=== PATIENT | male | born 1965 | race Caucasian/White ===

== ENCOUNTER 2019-07-01 11:26 | Emergency (ER) | payer BC, SELFPAY ==
[2019-07-01] VITALS (9 sets, daily range): BP systolic 135–168; BP diastolic 76–82; PULSE 75–112; RESP 16–22; TEMP 36.7; O2SAT 95–99
--- NOTE | 2019-07-01 11:42 | ED.ALLEREA ---
HPI - Allergic Reaction General Chief complaint: Allergic Reaction Stated complaint: Hives Time Seen by Provider: 07/01/19 11:49 Source: patient and family Mode of arrival: ambulatory Limitations: no limitations History of Present Illness HPI narrative: 54-year-old man comes from his PCP clinic today complaining of 3 days of itching, rash, shortness of breath, intermittent lightheadedness, and starting today, nausea and vomiting. He has been taking 40 mg of prednisone a day for the last few days in using his inhalers which, he states, is helping his shortness of breath. MD complaint: allergic reaction and hives Onset (ago): day(s) (3) Exposure: medication Symptoms: rash, itching, difficulty breathing, dizziness, nausea and vomiting Severity: moderate Treatment prior to arrival: benadryl and steroids Previous Allergic Reaction History: none Related Data Home Medications Medication Instructions Recorded Confirmed albuterol sulfate 2.5 mg INHALATION Q4-5H 07/01/19 07/01/19 mometasone-formoterol [Dulera] 1 puff INHALATION BID 07/01/19 07/01/19 Allergies Allergy/AdvReac Type Severity Reaction Status Date / Time fish oil Allergy Anaphylaxis Verified 07/01/19 12:21 Review of Systems Constitutional: Constitutional: Denies chills, Denies fever(s) and Denies weakness Eyes: Eyes: Denies change in vision and Denies photophobia ENT: Denies dysphagia, Denies nasal congestion and Denies sore throat Cardiovascular: Cardiovascular: Denies chest pain and Denies radiating jaw, neck or arm pain Respiratory: Respiratory: Denies chest congestion, Denies cough, Denies dyspnea and Reports wheezing Gastrointestinal: Gastrointestinal: Denies abdominal pain, Denies diarrhea, Denies nausea and Denies vomiting Genitourinary: Genitourinary: Denies dysuria and Denies urinary frequency Musculoskeletal: Musculoskeletal: Denies arthralgias and Denies joint swelling Integumentary/Breasts: Skin/Breast: Reports pruritus, Reports erythema and Reports rash Neurologic: Denies vertigo, Reports dizziness and Denies syncope Psychiatric: Psychiatric: Denies anxiety and Denies depression Endocrine: Endocrine: Denies polydipsia and Denies polyuria Hematologic/Lymphatic: Hematologic/Lymphatic: Denies easy bleeding and Denies easy bruising Allergic/Immunologic: Allergic/Immunologic: Denies lip swelling and Denies wheezing PMFSH Past Medical History Medical History Asthma Surgical History Surgical History H/O knee surgery bilateral History of surgery on arm Social History Social History Smoking status: Never smoker Alcohol intake: never Substance use: never Living arrangements: with family Exam Const: General: alert Nutritional Appearance: obese Orientation/consciousness: patient oriented x3 Other: mild acute distress HENMT: Head: normal to inspection Ears: external ears normal and TM's normal bilaterally Mouth: Yes Normal oral and palatal mucosa present and Yes moist mucous membranes Throat: posterior oropharynx normal and uvula midline Eyes: Conjunctivae: conjunctivae normal Pupils: Equal, round and reactive pupils present EOM: EOMs intact bilaterally Resp: Effort & Inspection: normal respiratory effort Auscultation: wheezes expiratory wheezes, scattered wheezes and throughout Cardio: Rate: tachycardic Rhythm: regular rhythm Heart sounds: no murmurs Skin: General skin exam: no jaundice and no pallor Other: diffuse erythema and urticaria Extrem: General: normal to inspection and no clubbing, cyanosis or edema Psych: Appearance: grossly normal and well kempt Affect: Anxious affect present Attitude: cooperative Thought content: Yes Normal thought content present Course Course Emergency Course: 1345 Patient states his shortness of breath an
[2019-07-01] MEDS: EPINEPHrine HCL INJ 1 MG/ML AMPUL 0.3 MG IM (12:14)
[2019-07-01] MEDS: methylPREDNISolone SOD SUCC 125 MG VIAL IV PUSH (12:15)
[2019-07-01] MEDS: ONDANSETRON HCL ODT 4 MG TABLET (12:16)
--- NOTE | 2019-07-01 12:17 | PC.NURSE ---
IV ACCESS ATTEMPTED MULTIPLE TIMES - PER ERP, OK TO GIVE MEDICATIONS IM. PT CONDITION REMAINS STABLE.
[2019-07-01] MEDS: IPRATROPIUM 0.5 MG/ALBUTEROL SULFATE 2.5 MG AMPUL.NEB 3 ML INHALATION (13:17)
[2019-07-01] MEDS: ALBUTEROL SULFATE NEB 2.5 MG/3 ML INH INHALATION (13:17)
--- NOTE | 2019-07-01 13:23 | PC.NURSE ---
MULTIPLE IV ATTEMPTS UNSUCESSFUL - PATIENT REPORTS FEELING BETTER AND WISHES TO GO HOME, AIRWAY REMAINS PATENT VSS
--- NOTE | 2019-07-01 13:42 | ECG_ITS ---
Measurements Intervals [place] Rate: 84 P: 30 UT: 154 QRS: -44 QRSD: 104 T: 46 QT: 366 QTc: 434 Interpretive Statements SINUS RHYTHM LEFT AXIS DEVIATION BORDERLINE R WAVE PROGRESSION, ANTERIOR LEADS BORDERLINE ECG Electronically Signed On 07-01-2019 14:51:51 CDT by William Henderson D.O.
[2019-07-01 14:21] LABS: Hematocrit 55.5 % (40.0-54.0); Hemoglobin 17.7 g/dL (14.0-18.0); Mean Corpuscular HGB Conc 31.9 g/dL (32.0-36.0); Mean Corpuscular Hemoglobin 30.3 pg (27.0-31.0); Mean Platelet Volume 11.2 fl (8.7-11.0); Platelet Count Result 233 K/mm3 (150-420); Red Blood Count 5.84 M/mm3 (4.70-6.10); Red Cell Distribution Width 14.4 % (11.6-14.4); White Blood Count 5.4 K/mm3 (4.8-10.8)
[2019-07-01 14:52] LABS: Alanine Aminotransferase 28 U/L (16-63); Albumin Level 3.8 g/dL (3.4-5.0); Alkaline Phosphatase 64 U/L (46-116); Anion Gap 15.8 mmol/L (7-16); Aspartate Amino Transferase 39 U/L (15-37); Bilirubin,Total 0.8 mg/dL (0.00-1.00); Blood Urea Nitrogen 31 mg/dL (7-18); Calcium 8.9 mg/dL (8.5-10.1); Carbon Dioxide 23 mmol/L (21-32); Chloride 104 mmol/L (98-108); Estimated Glomerular Filt Rate 26; Glucose 112 mg/dL (70-99); Osmolality Calculated 293 mOsm/kg (285-295); Potassium 4.8 mmol/L (3.5-5.1); Sodium 138 mmol/L (136-145); Total Protein 6.9 g/dL (6.4-8.2); Troponin I 0.02 ng/mL (0.00-0.056)
== END 2019-07-01 15:13 | disposition home or self-care (01) ==
PROVIDERS: Emergency Provider Emergency Medicine; PCP Physician Assistant
DX: T78.2XXA Anaphylactic shock, unspecified, initial encounter (principal)
CPT/HCPCS: 36415; 80053; 84484; 85027; 93005; 94640; 96372; 96374; 96375; 99284; A9270; J0171; J1200; J2930

== ENCOUNTER 2020-11-13 13:50 | Emergency (ER) | payer BC, SELFPAY ==
[2020-11-13] VITALS (11 sets, daily range): BP systolic 142–163; BP diastolic 73–81; PULSE 16–84; RESP 16–24; TEMP 37.2–37.7; O2SAT 87–97
--- NOTE | ~2020-11-13 | CT_ITS ---
EXAMINATION: CT diagnostic chest wo con DATE: 11/13/2020 16:30 INDICATION: Shortness of breath and wheezing, COVID positive TECHNIQUE: Computed tomography (CT) of the chest was performed without intravenous contrast. The dose -length product (DLP) was 994.66 mGy-cm. Automated exposure control and iterative reconstruction tech [employer] were employed. COMPARISON: None FINDINGS: There are widespread groundglass opacities involving all lung zones. There is no pleural ef fusion or pneumothorax. The heart size is normal. There is enlargement of the main and central pulmon elsie arteries, consistent with pulmonary hypertension. No pathologically enlarged thoracic lymph nodes are identified there is a trace pericardial effusion. IMPRESSION: 1. Diffuse lung disease, consistent with pneumonia and/or pulmonary edema and/or acute respiratory di stress syndrome (ARDS) due to COVID 19. 2. Findings consistent with pulmonary hypertension Reviewed, dictated and finalized at location B. IMPRESSION: 1. Diffuse lung disease, consistent with pneumonia and/or pulmonary edema and/o r acute respiratory distress syndrome (ARDS) due to COVID 19. 2. Findings consistent with pulmonary hypertension
--- NOTE | 2020-11-13 14:04 | ECG_ITS ---
Measurements Intervals [place] Rate: 85 P: 47 VA: 157 QRS: -51 QRSD: 110 T: 16 QT: 393 QTc: 468 Interpretive Statements SINUS RHYTHM LEFT ANTERIOR FASCICULAR BLOCK BASELINE ARTIFACT- II, III, AVF ABNORMAL ECG Electronically Signed On 11-13-2020 14:52:46 CDT by William Henderson D.O.
[2020-11-13 14:39] LABS: Base Excess ABG -2.3 mmol/L (0-2); Device NON-REBREATHER MASK; HCO3 ABG 20.6 mmol/L (23-29); Modified Allen's Test Pass; Oxygen Content ABG 21.4 %vol (16.0-22.0); Oxygen Saturation ABG 93.1 % (95-97); Oxyhemoglobin 92.6 % (94-100); PCO2 ABG 31.1 mmHg (35-45); PO2 ABG 64.7 mmHg (80-90); Site Drawn RIGHT RADIAL; Total Hemoglobin 16.5 g/dL (12.0-18.0); pH ABG 7.44 (7.35-7.45)
[2020-11-13 14:41] LABS: Basophils Absolute Auto 0.01 K/mm3 (0.00-0.10); Basophils Percent Auto 0.2 % (0.0-1.0); Hematocrit 46.7 % (40.0-54.0); Hemoglobin 15.9 g/dL (14.0-18.0); Immature Granulocyte Absolute 0.03 K/mm3 (0.00-0.00); Immature Granulocyte Percent A 0.7 % (0.0-0.0); Lymphocytes Absolute Auto 0.55 K/mm3 (1.10-4.50); Lymphocytes Percent Auto 13.1 % (18.0-42.0); Mean Corpuscular Hemoglobin 29.7 pg (27.0-31.0); Mean Corpuscular Volume 87.3 fL (78.0-102.0); Mean Platelet Volume 10.4 fl (8.7-11.0); Monocytes Absolute Auto 0.38 K/mm3 (0.10-0.90); Neutrophils Absolute Auto 3.2 K/mm3 (1.7-7.2); Platelet Count Result 163 K/mm3 (150-420); Red Blood Count 5.35 M/mm3 (4.70-6.10); Red Cell Distribution Width 13.5 % (11.6-14.4); White Blood Count 4.2 K/mm3 (4.8-10.8)
[2020-11-13] MEDS: methylPREDNISolone SOD SUCC 125 MG VIAL IV PUSH (14:50)
[2020-11-13] MEDS: ALBUTEROL SULFATE (*SP) INHALER 2 PUFF INHALATION ×3 (14:52→20:58)
[2020-11-13 15:00] LABS: Alanine Aminotransferase 95 U/L (16-63); Albumin Level 3.2 g/dL (3.4-5.0); Alkaline Phosphatase 91 U/L (46-116); Anion Gap 14 mmol/L (8-16); Aspartate Amino Transferase 139 U/L (15-37); Bilirubin,Total 0.7 mg/dL (0.00-1.00); Blood Urea Nitrogen 12 mg/dL (7-18); Calcium 8.2 mg/dL (8.5-10.1); Carbon Dioxide 22 mmol/L (21-32); Chloride 102 mmol/L (98-108); Estimated Glomerular Filt Rate 59; Glucose 117 mg/dL (70-99); Osmolality Calculated 286 mOsm/kg (285-295); Potassium 3.7 mmol/L (3.5-5.1); Sodium 138 mmol/L (136-145); Total Protein 7.1 g/dL (6.4-8.2); Troponin I 37.3 ng/L (0.00-60.4)
[2020-11-13 15:06] LABS: Lactic Acid Reflex 1.9 mmol/L (0.4-2.0)
[2020-11-13 15:24] LABS: SARS-CoV-2 Ag Positive (Negative)
[2020-11-13 19:19] LABS: NT Pro B Type Natriuretic Pept 245 pg/mL (0-125)
--- NOTE | 2020-11-13 20:32 | PC.NURSE ---
report to AMANDA Pugh patient to be ER hold
[2020-11-13] MEDS: ACETAMINOPHEN 500 MG TABLET PO (20:56)
[2020-11-13] MEDS: DEXAMETHASONE SOD PHOS INJ 4 MG/ML VIAL 6 MG IV PUSH (21:10)
[2020-11-13] MEDS: AZITHROMYCIN 250 MG TABLET 500 MG PO (21:16)
--- NOTE | 2020-11-13 21:45 | PC.NURSE ---
Pt taken to Rm 210 as ERHold until bed available at [facility].
--- NOTE | 2020-11-13 23:33 | PC.NURSE ---
2300-- Patient delivered to floor by ER staff. Patient in room 210. Vital signs 98.2- 20 -66 -146/76 (left arm, lying)- 87% on 15L rebreather mask. Patient complains of dry hacky cough and SOB. States he becomes nausous with movement. Denies any pain. Nail bed pink, Less than 2 second capillary refill noted. Patient is an ER hold. Awaiting to be tranferred to [facility]. --Rick Barnes RN
--- NOTE | 2020-11-13 23:45 | PC.NURSE ---
1100 Crackles bilateral lower lobes.
[2020-11-14] MEDS: REMDESIVIR 200 MG/NS 250 ML 200 MG/250 ML BAG 250 MG IVPB (01:11)
--- NOTE | 2020-11-14 02:26 | PC.NURSE ---
Dr. Childress notified of pt's c/o headache pain; New orders received and noted.
--- NOTE | 2020-11-14 02:51 | PC.NURSE ---
0111-- Remdesivir IV administered. Patient tolerated well. Patient also started on telemetry. Patient currently in sinus bradycardia. Denies any chest pain. SOB with movement. Complained of headache. ER physician called. Received order for Tylenol to be given. --Rick Barnes RN
[2020-11-14] MEDS: ACETAMINOPHEN 325 MG TABLET 650 MG PO (03:18)
--- NOTE | 2020-11-14 03:28 | PC.NURSE ---
Patient continues to complain of headache, dull achey. Rated pain 5 out of 10. Tylenol 650mg given at 0320. Repeated vital signs 98.0 - 58 - 20 - 144/97 Left arm, suspine, 90%. --Rick Barnes RN
--- NOTE | 2020-11-14 04:46 | PC.NURSE ---
0430 --Patient is sleeping with rebreather mask and nasal canal on. Patient is not in any distress at this time. --Rick Barnes RN
--- NOTE | 2020-11-14 04:46 | ED.SOB ---
HPI - SOB/Dyspnea General Chief Complaint: Shortness of Breath/Dyspnea Stated Complaint: respitory distress Time Seen by Provider: 11/13/20 13:51 Source: patient and RN notes reviewed Mode of arrival: ambulatory Limitations: no limitations History of Present Illness MD elicited complaint: shortness of breath Pertinent past history: asthma Onset (ago): day(s) (1) Context: recent illness Timing: progressively worsening Severity: moderate Exacerbating factors: nothing Relieving factors: nothing Known history of: asthma Associated symptoms: wheezing and sense of impending doom Treatment prior to arrival: none Related Data Home Medications Medication Instructions Recorded Confirmed albuterol sulfate 2.5 mg INHALATION Q4-5H 07/01/19 11/13/20 mometasone-formoterol [Dulera] 1 puff INHALATION BID 07/01/19 11/13/20 Allergies Allergy/AdvReac Type Severity Reaction Status Date / Time fish oil Allergy Severe Anaphylaxis Verified 11/13/20 20:42 Review of Systems Review of Systems: All systems reviewed & are unremarkable except as noted in HPI and below Constitutional: Constitutional: Reports as per HPI and Reports no additional constitutional complaints Eyes: Eyes: Reports as per HPI and Reports no additional eye complaints ENT: Reports system reviewed and no additional complaints, except as documented and Reports as per HPI Cardiovascular: Cardiovascular: Reports as per HPI and Reports no additional cardiovascular complaints Respiratory: Respiratory: Reports as per HPI, Reports no additional respiratory complaints, Reports dyspnea and Reports wheezing Gastrointestinal: Gastrointestinal: Reports as per HPI and Reports no additional gastrointestinal complaints Genitourinary: Genitourinary: Reports no additional male genitourinary complaints and Reports as per HPI Musculoskeletal: Musculoskeletal: Reports no additional musculoskeletal complaints and Reports as per HPI Integumentary/Breasts: Skin/Breast: Reports system reviewed and no additional complaints, except as docu and Reports as per HPI Neurologic: Reports system reviewed and no additional complaints, except as documented and Reports as per HPI Psychiatric: Psychiatric: Reports no additional psychiatric complaints and Reports as per HPI Endocrine: Endocrine: Reports no additional endocrine complaints and Reports as per HPI Hematologic/Lymphatic: Hematologic/Lymphatic: Reports no additional hematologic/lymphatic complaints and Reports as per HPI Allergic/Immunologic: Allergic/Immunologic: Reports no additional allergic/immunologic complaints and Reports as per HPI PMFSH Past Medical History Medical History Asthma Surgical History Surgical History H/O knee surgery bilateral History of surgery on arm Social History Social History Smoking status: Never smoker Alcohol intake: never Substance use: never Gender identity (if verbalized by the patient): Male Exam Const: General: alert and ill appearing Orientation/consciousness: patient oriented x3 HENMT: Head: normal to inspection Ears: external ears normal and TM's normal bilaterally General nose exam: Normal external nose present and Normal nares present Mouth: Yes lip normal and Yes moist mucous membranes Teeth and gingiva: dentition normal Eyes: Conjunctivae: conjunctivae normal Pupils: Equal, round and reactive pupils present EOM: EOMs intact bilaterally Neck: Neck: normal visual inspection and no lymphadenopathy Chest: Chest palpation & inspection: normal inspection of the chest Resp: Effort & Inspection: labored, retractions, tachypneic and uses accessory muscles Auscultation: crackles, rhonchi and wheezes Cardio: Rate: regular rate Rhythm: regular rhythm GI: GI Palp: Yes Soft to palpation Percussion: Yes alin
--- NOTE | 2020-11-14 05:22 | PC.NURSE ---
0525--Patient awake. Reports headache to be better, 1-2. Patient continues to wear rebreather mask at 15L and NC at 6L. Denies any SOB. Dry, hacky cough noted. --Rick Barnes RN
[2020-11-14 05:30] LABS: Basophils Absolute Auto 0.01 K/mm3 (0.00-0.10); Basophils Percent Auto 0.2 % (0.0-1.0); Hematocrit 47.6 % (40.0-54.0); Hemoglobin 15.8 g/dL (14.0-18.0); Immature Granulocyte Absolute 0.04 K/mm3 (0.00-0.00); Immature Granulocyte Percent A 0.8 % (0.0-0.0); Lymphocytes Absolute Auto 0.51 K/mm3 (1.10-4.50); Lymphocytes Percent Auto 10.8 % (18.0-42.0); Mean Corpuscular HGB Conc 33.2 g/dL (32.0-36.0); Mean Corpuscular Volume 87.3 fL (78.0-102.0); Mean Platelet Volume 9.8 fl (8.7-11.0); Monocytes Absolute Auto 0.34 K/mm3 (0.10-0.90); Monocytes Percent Auto 7.2 % (2.0-11.0); Neutrophils Absolute Auto 3.8 K/mm3 (1.7-7.2); Platelet Count Result 181 K/mm3 (150-420); Red Blood Count 5.45 M/mm3 (4.70-6.10); Red Cell Distribution Width 13.4 % (11.6-14.4); White Blood Count 4.7 K/mm3 (4.8-10.8)
[2020-11-14 05:51] LABS: Alanine Aminotransferase 95 U/L (16-63); Alkaline Phosphatase 101 U/L (46-116); Anion Gap 13 mmol/L (8-16); Aspartate Amino Transferase 139 U/L (15-37); Bilirubin,Total 0.8 mg/dL (0.00-1.00); Blood Urea Nitrogen 15 mg/dL (7-18); Calcium 8.7 mg/dL (8.5-10.1); Carbon Dioxide 23 mmol/L (21-32); Chloride 104 mmol/L (98-108); Estimated CRCL calculation 108 ml/min; Estimated Glomerular Filt Rate > 60; Glucose 140 mg/dL (70-99); Osmolality Calculated 292 mOsm/kg (285-295); Potassium 4.6 mmol/L (3.5-5.1); Sodium 140 mmol/L (136-145); Total Protein 7.2 g/dL (6.4-8.2)
[2020-11-14 05:53] LABS: INR 0.9; Prothrombin Time 9.9 Seconds (9.50-12.10)
--- NOTE | 2020-11-14 07:15 | PC.NURSE ---
Report obtained from night nurse. Patient is on ER hold, awaiting a bed at [facility]. Patient is covid positive, on 6Lnasal canula and 15L non-rebreather, and still barely satting 90 . Patient is on telemetry, and is running bradycardia. Patient has a dry, hacking cough with crackles in the bilateral lower lobes. He is not eating very much at this time.
--- NOTE | 2020-11-14 08:20 | PC.NURSE ---
Bed from [facility] recieved
[2020-11-14] MEDS: ONDANSETRON INJ 4 MG/2 ML VIAL IV PUSH (08:32)
[2020-11-14 08:45] VITALS: BP 164/87; PULSE 62; RESP 25; TEMP 36.6; O2SAT 88
--- NOTE | 2020-11-14 08:45 | PC.NURSE ---
Patient was asking for medication for nausea. Gave him zofran, and took his vitals. Patient's heart rate was 62 and his blood pressure was 164/87. Patient's O2 sats were 88%. Reported information to Dr. Choi, respiratory was called in and upped his nonrebreather to 25L. Patient's O2 sats went up to 92%. Patient has a bed at [facility]. Attempted to call report, nurse was unavailable and would call back.
[2020-11-14 09:13] LABS: Base Excess ABG -1.6 mmol/L (0-2); HCO3 ABG 21.1 mmol/L (23-29); Oxygen Content ABG 21.4 %vol (16.0-22.0); Oxygen Saturation ABG 91.6 % (95-97); Oxyhemoglobin 91.2 % (94-100); PCO2 ABG 30.7 mmHg (35-45); PO2 ABG 59.8 mmHg (80-90); Total Hemoglobin 16.7 g/dL (12.0-18.0); pH ABG 7.45 (7.35-7.45)
[2020-11-14 09:14] LABS: Modified Allen's Test Pass; Site Drawn RIGHT RADIAL
[2020-11-14 09:15] LABS: Device NON-REBREATHER MASK
[2020-11-14 11:14] VITALS: BP 164/87; PULSE 62; RESP 25; TEMP 36.6; O2SAT 88
--- NOTE | 2020-11-14 11:19 | PC.NURSE ---
Patient transferred via [facility] to [facility] IMU. Patient alert and oriented. Continues on isolation for Covid. On 15 liters of O2 with nonrebreather. No resp distress or pain observed.
== END 2020-11-14 11:00 | disposition short-term general hospital (02) ==
LOC: CHSED 13:54 → CHS2ND 20:08
PROVIDERS: Emergency Medicine; Emergency Provider Emergency Medicine; PCP Family Medicine
DX: U07.1 COVID-19 (principal); J12.82 Pneumonia due to coronavirus disease 2019; J45.51 Severe persistent asthma with (acute) exacerbation; J18.9 Pneumonia, unspecified organism
CPT/HCPCS: 36415; 36600; 71250; 80053; 82565; 82805; 83605; 83880; 84484; 85025; 85610; 87040; 87426; 93005; 94640; A9270; C9803; J0696; J1100; J2405; J2930

== ENCOUNTER 2020-11-14 11:30 | Inpatient (IN) | payer BC, SELFPAY ==
[2020-11-14] VITALS (19 sets, daily range): BP systolic 161–183; BP diastolic 85–102; PULSE 56–70; RESP 25–89; TEMP 36.4–38.4; O2SAT 84–98; BMI 50.8
--- NOTE | ~2020-11-14 | XR_ITS ---
XR chest 1V portable 11/21/2020 06:37 Indication: Respiratory failure Procedure: AP portable chest Comparison: Comparison to multiple prior studies sequentially, with oldest reviewed study dated 11/18. Findings: Endotracheal tube tip 6.1 cm above the shelli. NG tube in the stomach. PICC line tip in the SVC. No pneumothorax. Unchanged diffuse bilateral airspace disease with more focal consolidation in the lower lung zones. Impression: 1: Stable diffuse bilateral infiltrates which may represent edema or pneumonia. Reviewed, dictated and finalized at location A. Impression: 1: Stable diffuse bilateral infiltrates which may represent edema or pneumonia.
--- NOTE | ~2020-11-14 | XR_ITS ---
XR abdomen NG/feed tube insert DATE: 11/15/2020 02:16 INDICATION: Nasogastric tube placement TECHNIQUE: Portable AP view on 11/15/2020 at 0203 hours COMPARISON: None FINDINGS: NG tube is noted in the gastric fundus. Nonspecific bowel gas pattern. IMPRESSION: NG tube in gastric fundus. Reviewed, dictated and finalized at Location A. Reviewed, dictated and finalized at location A. IMPRESSION: NG tube in gastric fundus.
--- NOTE | ~2020-11-14 | XR_ITS ---
EXAMINATION: XR chest 1V portable DATE: 11/22/2020 09:23 INDICATION: Respiratory failure TECHNIQUE: frontal view of the chest was obtained. COMPARISON: Chest radiograph dated 11/21/2020 FINDINGS: Endotracheal tube tip 6.5 cm above the shelli. Nasogastric tube extends below the left hemidiaphragm with distal tip collimated off the study. Decreased lung volumes with increased indistinct interstitial pattern and airspace opacities in the r ight mid to lower and left lower lung zones. No pneumothorax or definitive pleural effusion. Cardiac silhouette is largely obscured. IMPRESSION: 1. No significant change in small lung volumes with interstitial and airspace opacities in the right mid to lower and left lower lung zones which could represent pneumonia, pulmonary edema, atelectasis, ARDS or some combination thereof. 2. Endotracheal tube tip 6.5 cm above the shelli. Recommend advancement by 4 cm. Reviewed, dictated and finalized at location A. IMPRESSION: 1. No significant change in small lung volumes with interstitial and airspace o pacities in the right mid to lower and left lower lung zones which could repres ent pneumonia, pulmonary edema, atelectasis, ARDS or some combination thereof. 2. Endotracheal tube tip 6.5 cm above the shelli. Recommend advancement by 4 cm .
--- NOTE | ~2020-11-14 | XR_ITS ---
XR chest ET placement DATE: 11/15/2020 05:45 INDICATION: ET tube placement after self extubation TECHNIQUE: Portable AP chest on 11/15/2020 at 0520 hours COMPARISON: 11/15/2020 portable AP chest at 0334 hours FINDINGS: ET tube in satisfactory position approximately 5.2 cm above shelli. NG tube is visualized a t least into the distal esophagus, this more distal portion not well-demonstrated. Right upper extremity PIC catheter in superior vena cava. Patchy bilateral pulmonary infiltrates, right greater than left. No pleural effusion or pneumothorax is evident. IMPRESSION: ET tube in satisfactory position Persistent extensive patchy bilateral pulmonary infiltrates Reviewed, dictated and finalized at Location A. Reviewed, dictated and finalized at location A.
--- NOTE | ~2020-11-14 | XR_ITS ---
XR abdomen/kub 1V DATE: 11/15/2020 00:13 INDICATION: Nausea and vomiting TECHNIQUE: Portable supine AP view on 11/15/2020 at 0000 hours COMPARISON: None FINDINGS: The stomach and duodenum are distended with gas. There is limited small bowel gas. Gas is n oted within nondilated colon. No pneumatosis or obvious intraperitoneal free air is detected on this limited supine radiograph. IMPRESSION: Gaseous distention of the stomach and duodenum Reviewed, dictated and finalized at Location A. Reviewed, dictated and finalized at location A.
--- NOTE | ~2020-11-14 | XR_ITS ---
XR abdomen NG/feed tube insert DATE: 11/15/2020 03:46 INDICATION: Orogastric tube placement TECHNIQUE: Portable AP view on 11/15/2020 0337 hours COMPARISON: None FINDINGS: Orogastric tube is noted within the stomach, the distal tip not definitively localized due to motion. IMPRESSION: Orogastric tube in stomach, distal tip not localize due to motion Reviewed, dictated and finalized at Location A. Reviewed, dictated and finalized at location A.
--- NOTE | ~2020-11-14 | XR_ITS ---
XR chest 1V portable 11/19/2020 06:32 Indication: Acute respiratory distress Procedure: AP portable chest Comparison: Comparison to multiple prior studies sequentially, with oldest reviewed study dated 11/15. Findings: Cardiomegaly. Persistent diffuse bilateral airspace disease. Endotracheal tube tip 6.5 cm a mauricio the shelli. NG tube passes into the stomach. PICC line tip likely in the SVC, although not well visualized. Possible small left effusion. No pneumothorax. Impression: 1: Unchanged diffuse bilateral airspace disease which may represent pneumonia or edema. Reviewed, dictated and finalized at location A. Impression: 1: Unchanged diffuse bilateral airspace disease which may represent pneumonia o r edema.
--- NOTE | ~2020-11-14 | US_ITS ---
EXAMINATION: US renal BI DATE: 11/25/2020 17:12 INDICATION: Acute kidney injury. TECHNIQUE: Multiple ultrasound grayscale images of the kidneys were obtained. COMPARISON: Chest CT 11/13/2020 FINDINGS: The right kidney measures 16.0 x 5.3 x 5.8 cm. The left kidney measures 15.1 x 4.7 x 6.2 cm. The kidn eys demonstrate normal parenchymal echogenicity. There is no hydronephrosis. The bladder is decompres sed by a Olivares catheter. IMPRESSION: 1. Normal kidneys. No hydronephrosis. Reviewed, dictated and finalized at location A.
--- NOTE | ~2020-11-14 | XR_ITS ---
XR chest 1V portable 11/20/2020 06:10 Indication: Respiratory failure Procedure: AP portable chest Comparison: Comparison to multiple prior studies sequentially, with oldest reviewed study dated 11/17. Findings: Endotracheal tube tip 3.8 cm above the shelli. NG tube in the stomach. Stable diffuse bilat eral airspace disease, compatible with pneumonia versus edema. PICC line tip in the SVC. Distal aspec t of the NG tube not visualized. Impression: 1: Stable diffuse bilateral airspace disease which most likely represents pneumonia versus edema. Reviewed, dictated and finalized at location A. Impression: 1: Stable diffuse bilateral airspace disease which most likely represents pneum onia versus edema.
--- NOTE | ~2020-11-14 | XR_ITS ---
XR chest 1V portable DATE: 11/15/2020 02:16 INDICATION: Acute respiratory failure TECHNIQUE: Portable AP chest on 11/15/2020 at 0153 hours COMPARISON: 11/13/2020 CT chest FINDINGS: Extensive patchy bilateral pulmonary infiltrates are again noted, likely due to Covid pneum onia. Heart size appears within normal range. No pleural effusion or pneumothorax is evident. An NG tube is noted, likely passing into the stomach, but difficult to trace distally. IMPRESSION: Extensive patchy bilateral pulmonary infiltrates, likely due to Covid pneumonia Reviewed, dictated and finalized at location A. IMPRESSION: Extensive patchy bilateral pulmonary infiltrates, likely due to Cov id pneumonia
--- NOTE | ~2020-11-14 | XR_ITS ---
EXAMINATION: XR chest port-a-cath/central EXAM DATE: 11/27/2020 08:33 INDICATION: Central line placement. COVID pneumonia. TECHNIQUE: Portable AP frontal chest x-ray was obtained. Comparison is made to prior examination from 11/27/2019. FINDINGS: There is a right-sided IJ double-lumen dialysis catheter. There is a right-sided PICC line heading in the correct direction, with tip poorly visualized. Endotracheal and nasogastric tubes in p osition. Cardiomegaly. Diffuse bilateral acute airspace disease unchanged in patient with known COVID pneumoni a. There are no pleural effusions. Cardiac silhouette is prominent but magnified on this AP techni que. There is no pneumothorax suspected. The bones and soft tissues are unremarkable. There is no significant interval change. IMPRESSION: 1. Tubes, lines in position. 2. Diffuse pneumonia/edema unchanged. 3. No pneumothorax. Reviewed, dictated and finalized at location A.
--- NOTE | ~2020-11-14 | XR_ITS ---
XR chest 1V portable DATE: 11/26/2020 20:46 INDICATION: Covid pneumonia. Oxygen desaturation. TECHNIQUE: Portable AP views on 11/26/2020 at 2034 hours COMPARISON: 11/26/2020 portable AP chest at 1359 hours FINDINGS: There is severe patchy consolidating bilateral pulmonary infiltrates throughout the lungs, with minimal sparing of the apical areas. There is increased severity of infiltrates compared to 11/26 at 1359 hours. ET tube in satisfactory position. Right upper extremity PIC catheter in superior vena cava. IMPRESSION: Bilateral severe patchy consolidating infiltrates, increased since earlier today Reviewed, dictated and finalized at location A. IMPRESSION: Bilateral severe patchy consolidating infiltrates, increased since earlier stas gutierrez
--- NOTE | ~2020-11-14 | XR_ITS ---
XR chest 1V portable DATE: 11/24/2020 09:19 INDICATION: Respiratory failure TECHNIQUE: Portable AP chest on 11/24/2020 at 0913 hours COMPARISON: 11/23/2020 portable AP chest at 0921 hours FINDINGS: ET tube 5.2 cm above shelli. NG tube in stomach. Right upper extremity PIC catheter tip overlies superior vena cava. There are diffuse bilateral pulmonary infiltrates, most prominent at the lower lung zones, relatively stable since 11/23/2020. IMPRESSION: Relatively stable persistent diffuse bilateral pulmonary infiltrates, particularly promin ent at the lower lung zones Reviewed, dictated and finalized at location A. IMPRESSION: Relatively stable persistent diffuse bilateral pulmonary infiltrate s, particularly prominent at the lower lung zones
--- NOTE | ~2020-11-14 | XR_ITS ---
XR chest 1V portable 11/23/2020 09:26 Indication: Respiratory failure Procedure: AP portable chest Comparison: Comparison to multiple prior studies sequentially, with oldest reviewed study dated 11/19. Findings: Endotracheal tube tip 7.1 cm above the shelli. NG tube in the stomach. Improving bibasilar airspace disease, compatible with pneumonia versus edema. No significant effusion or pneumothorax. PI CC line tip in the SVC. Impression: 1: Improving bibasilar airspace disease, compatible with pneumonia versus edema. Reviewed, dictated and finalized at location A. Impression: 1: Improving bibasilar airspace disease, compatible with pneumonia versus edema .
--- NOTE | ~2020-11-14 | XR_ITS ---
XR abdomen NG/feed tube insert DATE: 11/15/2020 05:45 INDICATION: Orogastric tube placement TECHNIQUE: Portable AP view on 11/15/2020 at 0522 hours COMPARISON: 11/15/2020 at 0 337 hours FINDINGS: Orogastric tube is situated in the upper body of the stomach. IMPRESSION: Orogastric tube in upper body of stomach Reviewed, dictated and finalized at Location A. Reviewed, dictated and finalized at location A.
--- NOTE | ~2020-11-14 | XR_ITS ---
EXAMINATION: XR chest 1V portable INDICATION: Acute respiratory failure TECHNIQUE: Portable AP chest at 0532 hours COMPARISON: 11/17/2020 FINDINGS: The endotracheal tube ends approximately 6.2 cm above the shelli. The nasogastric tube is f ollowed as far as the stomach. Its tip is beyond the inferior margin of the radiograph. A right upper extremity PICC ends with its tip at the superior cavoatrial junction. Diffuse airspace opacities per sist in all lung zones with slight improvement in the left lower lung zone. The cardiomediastinal kendell houette is stable. There is no pleural effusion or pneumothorax. IMPRESSION: 1. Diffuse lung disease with slight interval improvement in the left lower lung zone, consistent with pneumonia and/or pulmonary edema and/or acute respiratory distress syndrome (ARDS). Reviewed, dictated and finalized at location A. IMPRESSION: 1. Diffuse lung disease with slight interval improvement in the left lower lung zone, consistent with pneumonia and/or pulmonary edema and/or acute respirator y distress syndrome (ARDS).
--- NOTE | ~2020-11-14 | XR_ITS ---
EXAMINATION: XR chest ET placement DATE: 11/19/2020 14:14 INDICATION: Endotracheal tube advancement. COVID-19 pneumonia. TECHNIQUE: A single frontal view of the chest was obtained. COMPARISON: Chest single view at 5:47 AM, chest CT 11/13/2020 FINDINGS: The lung volumes are small. There are airspace opacities in all lung zones bilaterally with a mid and lower lung zone predominance. No pleural effusion or pneumothorax. The heart size is alin l. The endotracheal tube tip is 5.6 cm above the shelli. A right upper extremity peripherally inserte d central venous catheter (PICC) is seen with tip in the superior vena cava. The nasogastric tube tip is in the stomach. IMPRESSION: 1. Stable diffuse lung disease, consistent with COVID-19 pneumonia versus acute respiratory distress syndrome (ARDS). Reviewed, dictated and finalized at location B.
--- NOTE | ~2020-11-14 | XR_ITS ---
EXAMINATION: XR chest port-a-cath/central EXAM DATE: 11/26/2020 14:08 INDICATION: Dialysis line placement . COVID pneumonia. TECHNIQUE: Portable AP frontal chest x-ray was obtained. Comparison is made to prior examination from 11/27/2019. FINDINGS: There is a new right-sided IJ double-lumen dialysis catheter. There is a right-sided PICC l ine. Endotracheal and nasogastric tubes in position. Cardiomegaly. Diffuse bilateral acute airspace disease unchanged in patient with known COVID pneumoni a. There are no pleural effusions. Cardiac silhouette is prominent but magnified on this AP techni que. There is no pneumothorax suspected. The bones and soft tissues are unremarkable. IMPRESSION: 1. No evidence postprocedure pneumothorax. 2. Diffuse pneumonia/edema. Reviewed, dictated and finalized at location A.
--- NOTE | ~2020-11-14 | XR_ITS ---
XR chest 1V portable DATE: 11/16/2020 05:56 INDICATION: Acute respiratory failure. Covid pneumonia. TECHNIQUE: Portable AP chest on 11/16/2020 at 0511 hours COMPARISON: 11/15/2020 portable AP chest at 0520 hours FINDINGS: ET tube tip 4.7 cm above shelli in satisfactory position. NG tube passing into stomach. Rig ht upper sided PICC catheter tip overlies superior vena cava. Extensive patchy consolidating bilateral pulmonary infiltrates are noted, relatively stable on the ri ght, increased substantially on the left since 11/15/2020. No pleural effusion or pneumothorax. IMPRESSION: Extensive bilateral patchy pulmonary consolidating infiltrates, substantially increased o n the left since 11/15/2020 Reviewed, dictated and finalized at location A. IMPRESSION: Extensive bilateral patchy pulmonary consolidating infiltrates, sub stantially increased on the left since 11/15/2020
--- NOTE | ~2020-11-14 | US_ITS ---
EXAMINATION: US venous doppler [facility] DATE: 11/15/2020 12:06 INDICATION: Lower limb edema. TECHNIQUE: Grayscale ultrasound images without and with compression and Doppler ultrasound images of the bilateral lower extremity veins were obtained. COMPARISON: None. FINDINGS: The visualized portions of right common femoral vein, profunda (deep) femoral vein, femoral vein, pop liteal vein, peroneal veins, posterior tibial veins, and greater saphenous vein outflow are patent. The visualized portions of left common femoral vein, profunda femoral vein, femoral vein, popliteal v ein, peroneal veins, posterior tibial veins, and greater saphenous vein outflow are patent. IMPRESSION: 1. No deep venous thrombosis. Reviewed, dictated and finalized at location A.
--- NOTE | ~2020-11-14 | XR_ITS ---
EXAMINATION: XR chest 1V portable DATE: 11/26/2020 09:09 INDICATION: Acute respiratory failure. COVID pneumonia. Intubated. TECHNIQUE: frontal view of the chest was obtained. COMPARISON: Chest radiograph dated 11/24/2020 FINDINGS: Endotracheal tube tip 5.4 cm above the shelli. Nasogastric tube extends below the left hemidiaphragm with distal tip collimated off the study. Right upper extremity peripherally inserted central venous catheter (PICC) tip at the superior vena cava. No significant interval change in a diffuse increased interstitial pattern with more dense patchy air space opacities in the bilateral lower lung zones. No pleural effusion or pneumothorax. The cardiomed iastinal silhouette is normal. IMPRESSION: 1. No significant change in diffuse bilateral lung disease most prominent in the lower lung zones whi ch could represent COVID pneumonia, pulmonary edema, atelectasis or some combination thereof. Reviewed, dictated and finalized at location B. IMPRESSION: 1. No significant change in diffuse bilateral lung disease most prominent in th e lower lung zones which could represent COVID pneumonia, pulmonary edema, atel ectasis or some combination thereof.
--- NOTE | ~2020-11-14 | XR_ITS ---
EXAMINATION: XR chest 1V portable INDICATION: Acute respiratory failure TECHNIQUE: Portable AP chest at 0525 hours COMPARISON: 11/16/2020 FINDINGS: The endotracheal tube ends approximately 3.7 cm above the shelli. The nasogastric tube is f ollowed as far as the stomach. Its tip is beyond the inferior margin of the radiograph. A right upper extremity PICC ends with its tip in the midsuperior vena cava. Diffuse opacities persist in all lung zones without significant change. The cardiomediastinal silhouette is stable. No pleural effusion or pneumothorax is identified. IMPRESSION: 1. Stable diffuse lung disease, consistent with pneumonia and/or pulmonary edema and/or acute respira tory distress syndrome (ARDS). Reviewed, dictated and finalized at location A. IMPRESSION: 1. Stable diffuse lung disease, consistent with pneumonia and/or pulmonary frida a and/or acute respiratory distress syndrome (ARDS).
--- NOTE | ~2020-11-14 | XR_ITS ---
XR chest ET placement DATE: 11/15/2020 03:46 INDICATION: ET tube placement TECHNIQUE: Portable AP chest on 11/15/2020 at 0334 hours COMPARISON: 11/15/2020 portable AP chest at 0153 hours FINDINGS: ET tube appears in satisfactory position. Extensive patchy bilateral pulmonary infiltrates, right greater than left, not significantly changed since 0153 hours. NG tube is not well demonstrated distally. Neither upper extremity PIC catheter in superior vena cava . IMPRESSION: ET tube in satisfactory position Extensive bilateral pulmonary infiltrates Reviewed, dictated and finalized at Location A. Reviewed, dictated and finalized at location A.
--- NOTE | 2020-11-14 11:35 | ADMGEN ---
This patient, Evaristo Kitchen, was admitted to Intensive Care Unit-4. Patient/family oriented to hospital policies and general routines including ID bracelet, bed and alarms, visiting hours, pain management, procedures, bathroom and other care routines, personal items, smoking policy, room service/diet, and visiting hours. Information on how to activate the Rapid Response Team has been discussed. Patient/Family are encouraged to report perceived risks to care and to ask questions if they do not understand what they are told or what they should do.
--- NOTE | 2020-11-14 12:37 | WPDCNINT ---
Assessment and Plan Assessment and plan (1) Acute respiratory distress syndrome (ARDS) due to 2019 novel coronavirus: Code(s): U07.1 - COVID-19; J80 - Acute respiratory distress syndrome Status: Acute Assessment and Plan: Acute respiratory failure likely related to COVID pneumonia -patient was on high-flow therapy and non-rebreather, desaturated, was placed on BiPAP 14/8 with O2 sats of 98-100% on 80% FiO2 -patient started on azithromycin and ceftriaxone (11/13/2020 received his 1st does at the outside hospital) -will start bronchodilators and Pulmicort -ABG done here at [facility] were 7.43/33/70/22/94%, BiPAP 14/8, 80% FiO2 -will repeat chest x-ray in a.m. (2) Pneumonia due to 2019 novel coronavirus: Code(s): U07.1 - COVID-19; J12.82 - Pneumonia due to coronavirus disease 2019 Status: Acute Assessment and Plan: Patient has been tested positive for COVID-19 on 11/13/2020. Patient has not received his vaccine -11/13/2020 started on dexamethasone -11/13/2020 started on remdesivir -11/13/2020 received tocilizumab at the outside hospital -continue with droplet, airborne and contact isolation/precautions -will obtain inflammatory markers (3) Asthma: Code(s): J45.909 - Unspecified asthma, uncomplicated Status: Acute Assessment and Plan: Continue bronchodilators (4) DVT prophylaxis: Code(s): Z29.9 - Encounter for prophylactic measures, unspecified Status: Acute Assessment and Plan: Continue Lovenox Additional Plan Diet: Full liquid diet Discussed with patient at length and updated with his condition and plan of care. I did discuss with him regarding intubation of the time arises. He is agreeable. Code status full code Critical care time spent: 47 minutes This dictation may have been done utilizing a voice recognition system. Attempts have been made to correct errors. However, there may be uncorrected grammatical, spelling, and recognition errors present. Due to a high probability of clinically significant, life threatening deterioration, the patient required my highest level of preparedness to intervene emergently and I personally spent this critical care time directly and personally managing the patient. This critical care time included obtaining a history; examining the patient; pulse oximetry; ordering and review of studies; arranging urgent treatment with development of a management plan; evaluation of patient's response to treatment; frequent reassessment; and discussions with other providers. It was exclusive of separately billable procedures and treating other patients and teaching time. Please see Assessment and Plan section and the rest of the note for further information on patient assessment and treatment [employer] Consult Note Consult date: 11/14/20 Time Seen: 12:35 Reason for consult: Acute respiratory failure, COVID pneumonia HPI: Evaristo Kitchen is a 55 year old male with history of asthma presented to the ED on 11/13/2020 at the [facility] with complains of shortness of breath which has been worsening the last 1-2 days. Patient states he also has been having lot of wheezing. Any chest pain, fevers, nausea, vomiting, loss of sense of taste or smell. Denies any diarrhea. Patient does not have any other medical problems he takes inhalers for his asthma on as needed basis. Patient denies any tobacco use, alcohol or recreational drug use. At the outside hospital patient was tested positive for COVID-19, patient was started on remdesivir, dexamethasone and was given a dose of tocilizumab on 11/13/2020. Patient has not been vaccinated for COVID-19. Patient presented the intermediate Unit here at [facility], was on Airvo, high-flow therapy and non-rebreather, he dropped his O2 saturations. Was made in ICU patient, I placed him on BiPAP 14/8 with good O2 sats and tidal volumes. CT chest done at the outside hospit
[2020-11-14 13:15] LABS: Basophils Percent Auto 0.3 % (0.2-1.2); Hematocrit 51.6 % (42.0-52.0); Hemoglobin 16.9 g/dL (14.0-18.0); Immature Granulocyte Absolute 0.07 K/mm3 (0.00-0.031); Lymphocytes Absolute Auto 0.68 K/mm3 (0.9-3.2); Lymphocytes Percent Auto 9.9 % (18.3-44.2); Mean Corpuscular HGB Conc 32.8 g/dl (32-36); Mean Corpuscular Volume 88.5 fl (80-100); Mean Platelet Volume 10.2 fl (7.4-10.4); Monocytes Absolute Auto 0.8 K/mm3 (0.1-0.6); Monocytes Percent Auto 11.9 % (2.6-8.5); Neutrophils Absolute Auto 5.3 K/mm3 (1.3-6.7); Neutrophils Percent Auto 76.9 % (45.5-73.1); Platelet Count Result 207 k/mm3 (150-375); Red Blood Count 5.83 M/mm3 (4.6-6.20); Red Cell Distribution Width 14.2 % (11.5-14.5); White Blood Count 6.9 K/mm3 (4.5-10.0)
[2020-11-14 13:18] LABS: Alveolar/Arterial O2 Gradient 464.9 mmHg; Base Excess ABG -1.2 mEq/l (+/-2.0); Fractional Inspired Oxygen 80 %; HCO3 ABG 22.1 mEq/l (22.0-26.0); Oxygen Content ABG 22.8 %vol (16.0-22.0); Oxygen Saturation ABG 94.8 % (95.0-100.0); PCO2 ABG 33.6 mmHg (35.0-45.0); PO2 ABG 70.2 mmHg (80.0-100.0); PO2 FiO2 Ratio Arterial Blood 0.88 %; Total Hemoglobin 17.3 g/dL (12.0-18.0); pH ABG 7.436 (7.350-7.450)
[2020-11-14 13:21] LABS: Device NON-INVASIVE VENT; Modified Allen's Test Pass; Non-Invasive Inspiratory Pressure 14 CMH2O; Non-Invasive Vent Rate 4 /MIN; Site Drawn LEFT RADIAL
[2020-11-14 13:22] LABS: Non-Invasive Expiratory Pressure 8 CMH2O
[2020-11-14 13:27] LABS: Lactic Acid Reflex 1.4 mmol/L (0.7-2.1)
[2020-11-14 13:29] LABS: D Dimer 1.99 ug/mL (<0.48)
[2020-11-14 13:37] LABS: INR 0.8; Prothrombin Time 11.1 Seconds (11.1-14.7)
[2020-11-14 13:45] LABS: Alanine Aminotransferase 97 U/L (4-50); Alkaline Phosphatase 114 U/L (38-126); Anion Gap 6 mmol/L (8-16); Aspartate Amino Transferase 200 U/L (17-59); Blood Urea Nitrogen 16 mg/dL (9-20); CRP 7.8 mg/dL (<1.0); Calcium 8.9 mg/dL (8.4-10.2); Carbon Dioxide 27 mmol/L (22-30); Chloride 105 mmol/L (98-107); Estimated CRCL calculation 130 ml/min; Estimated Glomerular Filt Rate > 60; Glucose 97 mg/dL (65-110); Potassium 4.7 mmol/L (3.4-5.0); Sodium 138 mmol/L (137-145)
[2020-11-14] MEDS: LIDOCAINE HCL 1% PF INJ 5 ML VIAL INFILTRATE (14:00)
--- NOTE | 2020-11-14 14:00 | PM.IMHP ---
H&P: HPI History of Present Illness Date/Time: 11/14/20 14:00 Chief Complaint: Acute respiratory failure secondary to COVID-19 pneumonia. Narrative: This is a 55-year-old with asthma who is being directly admitted to the intensive care unit from the [facility] for further treatment of acute respiratory failure secondary to COVID pneumonia. He has not been feeling well for upwards of a week and presented to the outside facility on 11/13/2020 with increasing shortness of breath and wheezing. Chest CT done on arrival to the emergency department showed diffuse lung disease consistent with pneumonia and/or pulmonary edema and/or acute respiratory distress syndrome due to COVID-19. Transfer was initiated to our facility though due to lack of beds initially, he stated at the outside facility overnight where he was started on dexamethasone and remdesivir. He was also given a dose of tocilizumab on 11/13/2020. On arrival to the ICU he was on high-flow therapy and non-rebreather though given increasing oxygen requirements he was transitioned to BiPAP. Throughout the evening the patient developed nausea and multiple episodes of emesis and the BiPAP had to be removed. A KUB showed gaseous distention of the stomach and an NG tube was inserted which returned nearly 1200 mL of gastric contents immediately. Unfortunately his oxygen saturations remained in the mid to upper 80s despite being on maximum therapy and the decision was made to intubate the patient. He has not been vaccinated for COVID-19. Review of Systems Review of Systems: Twelve systems were reviewed. He denies any significant fevers. Reports sweats. He has had some nausea and vomiting. No significant diarrhea. No chest pain, pleuritic pain, palpitations, orthopnea, or PND. Patient has never been diagnosed with sleep apnea but his has told him that he snores heavily and there are concerns for underlying sleep apnea. He has no known history of cardiac disease, congestive heart failure, or pulmonary hypertension. He does have asthma which is typically well controlled. No history of venous thromboembolism. Except as documented, all other systems were reviewed and are negative. [facility] Past Medical History Medical History Asthma Morbid obesity Osteoarthritis Surgical History Surgical History (Updated 11/14/20 @ 14:55 by Brionna Anaya PA-C) History of bilateral knee replacement History of surgery on arm Right elbow tendon repair. Family History Family History Mother Diabetes mellitus Son Asthma Son Diabetes mellitus Social History Social History (Updated 11/15/20 @ 03:12 by Brionna Anaya PA-C) Social History: The patient lives in [place] with his . They have 6 children, 5 who still live at home. Nonsmoker. No alcohol or illicit substance abuse. He designates his , Olinda Kitchen, as his surrogate decision maker. Code status: Full code. Meds Home Medications and Allergies Home Medications Medication Instructions Recorded Confirmed Type albuterol sulfate 2.5 mg INHALATION Q4-5H 07/01/19 11/14/20 History epinephrine 0.3 mg IM Q5-15M PRN #2 each 07/01/19 11/14/20 Rx mometasone-formoterol [Dulera] 1 puff INHALATION BID 07/01/19 11/14/20 History montelukast [Singulair] 10 mg PO BID 11/14/20 11/14/20 History Allergies Allergy/AdvReac Type Severity Reaction Status Date / Time fish oil Allergy Severe Anaphylaxis Verified 11/13/20 20:42 Vital Signs Vital Signs - 24 hr 11/14/20 11:35 11/14/20 11:54 11/14/20 12:00 Temperature 97.5 F L Pulse Rate 59 L 56 L Respiratory Rate 34 H Blood Pressure 175/92 H Pulse Oximetry 89 L 87 L 84 L 11/14/20 12:01 11/14/20 12:30 11/14/20 12:38 Temperature Pulse Rate 70 Respiratory Rate 28 H Blood Pressure Pulse Oximetry 88 L 98 96 11/14/20 14:00 Te
[2020-11-14 14:07] LABS: Lactate Dehydrogenase 3211 U/L (313-618)
[2020-11-14] MEDS: ENOXAPARIN 40 MG/0.4 ML SYRINGE SUB-Q (14:42)
[2020-11-14] MEDS: ALBUTEROL SULFATE NEB 2.5 MG/0.5 ML INH INHALATION (14:52)
[2020-11-14] MEDS: IPRATROPIUM BR 0.02% INH SOLN 0.5 MG/2.5 ML VIAL INHALATION (14:52)
[2020-11-14] MEDS: ONDANSETRON INJ 4 MG/2 ML VIAL IV PUSH (17:51)
[2020-11-14 18:57] LABS: Ferritin > 2000.00 ng/mL (11.1-264)
[2020-11-14] MEDS: ACETAMINOPHEN 325 MG TABLET 650 MG PO (18:59)
[2020-11-14] MEDS: DEXAMETHASONE SOD PHOS INJ 4 MG/ML VIAL 6 MG IV PUSH (20:22)
[2020-11-14] MEDS: PROMETHAZINE HCL 25 MG/ML AMPUL 12.5 MG IV PUSH (21:47)
[2020-11-14] MEDS: REMDESIVIR 100 MG/NS 250 ML 100 MG/250 ML BAG 250 MG IVPB (21:48)
[2020-11-14] MEDS: CENTRAL LINE FLUSH 10 ML IV PUSH ×2 (21:53→22:00)
--- NOTE | 2020-11-14 22:14 | PC.NURSE ---
At 1900 during shift change report, noted on monitor, patients saturations 83% with good pleth. Went in to assess patient. Patient on 15 L high flow NC and 15L non-rebreather. Patients lungs sound diminished. Patient actively vomiting. Patient states nausea and vomiting occurred after patient ate dinner. Patient is receiving Zofran with no affect. Dr. Cummings and Omari Llamas. notified per day shift nurseJason Staton to come see patient. Ventilator settings given per Dr. Cummings incase ventilations is appropriate with 450 Vt, peep 10, Rate 22, 100% FiO2. If Ventilated, to start patient on Fentanyl and Versed for sedation. To continue monitoring patient closely.
--- NOTE | 2020-11-14 22:22 | PC.NURSE ---
SUZANNE Llamas called at 1954 for condition update regarding low oxygen saturations. Oxygen saturations currently 86%-88% with 15L high flow NC and 15L non-rebreather. Patient still complaining of nausea. Waiting for call back from Brionna at this time.
--- NOTE | 2020-11-14 23:01 | PC.NURSE ---
Spoke with Brionna at 2004. Orders given to start patient on Airvo oxygen therapy and Phenergan 12.5 mg for Nausea and vomiting not resolved with Zofran. Nurse to continue monitoring patient closely.
[2020-11-15] VITALS (50 sets, daily range): BP systolic 118–172; BP diastolic 66–99; PULSE 45–81; RESP 21–35; TEMP 36.1–38.4; O2SAT 63–97; BMI 50.8
--- NOTE | 2020-11-15 | ECHO_ITS ---
Patient Info Name: Evaristo Kitchen Age: 55 years : 1965 Gender: Male Ht: 75 in Wt: 406 lbs BSA: 3.21 m2 HR: 95 bpm BP: 150 / 99 mmHg Heart Rhythm: Sinus Rhythm, Bradycardia Exam Date: 11/15/2020 11:51 AM Exam Location: [facility] Patient Status: Inpatient Admit Date: 11/14/2020 Staff Ordering Physician: Brionna Anaya PA-C Pole Maker: phyllis Attending Provider: Penny Mcintyre MD Referring Physician: Héctor STAPLES; Exam Type: CA echo doppler color flow Study Info Indications I27.0 - Primary pulmonary hypertension Complete two-dimensional, color flow and Doppler transthoracic echocardiogram is performed. Summary 1. Complete two-dimensional, color flow and Doppler transthoracic echocardiogram is performed. 2. Technically difficult study with limited views. Regional wall motion assessment limited due to poor endomyocardial border definition. 3. Left ventricular systolic function is probably normal, estimated at 55%. 4. There is mildly increased left ventricular wall thickness. 5. Left atrial chamber dimension is severely enlarged. 6. Right atrial chamber dimension is moderately enlarged. 7. There is trace tricuspid valve regurgitation. 8. No pulmonary hypertension, estimated pulmonary arterial systolic pressure is 28 mmHg. Left Ventricle Left ventricular chamber dimension is normal. Left ventricular systolic function is probably normal, estimated at 55%. There is mildly increased left ventricular wall thickness. The left ventricular diastolic function is grade I diastolic dysfunction. Technically difficult study with limited views. Regional wall motion assessment limited due to poor endomyocardial border definition. Right Ventricle Right ventricular chamber dimension is normal. Right ventricular systolic function is normal. Left Atria Left atrial chamber dimension is severely enlarged. Right Atria Right atrial chamber dimension is moderately enlarged. Aortic Valve The aortic valve is not well visualized. There is no aortic valve stenosis. There is no aortic valve regurgitation. Pulmonic Valve The pulmonic valve is not well visualized. Mitral Valve The mitral valve has not well visualized. Tricuspid Valve The tricuspid valve leaflets are not well visualized. There is trace tricuspid valve regurgitation. No pulmonary hypertension, estimated pulmonary arterial systolic pressure is 28 mmHg. Pericardium/Pleural The pericardium appears not well visualized. Aorta The aortic root size at the sinus of Valsalva is normal. Left Ventricular Outflow Tract Name Value Normal LVOT 2D LVOT Diameter 2.4 cm LVOT Doppler LVOT Peak Gradient 6 mmHg LVOT Mean Gradient 3 mmHg LVOT VTI 23 cm LVOT VTI/AV VTI Ratio 1.1 LVOT Stroke Volume 102 ml LVOT CO 20.4 l/min LVOT CI 6.4 l/min/m2 Mitral Valve Na
--- NOTE | 2020-11-15 02:20 | WPDPROCEDUR ---
Procedures Intubation Intubation Date: 11/15/20 <ESTEFANY Zimmerman Last Filed: 11/15/20 03:26> Intubation Time: 02:20 <ESTEFANY Zimmerman Last Filed: 11/15/20 03:26> Consent: Patient gave verbal consent. <ESTEFANY Zimmerman Last Filed: 11/15/20 03:26> A pre-procedural Time-Out was completed immediately before starting the procedure and confirmed: Patient Identification, Site, Procedure, Patient Position and the Availability of Requisite Equipment: Yes <ESTEFANY Zimmerman Last Filed: 11/15/20 03:26> Sedative: etomidate <ESTEFANY Zimmerman Last Filed: 11/15/20 03:26> Mg given: 30 <ESTEFANY Zimmerman Last Filed: 11/15/20 03:26> Paralytic: succinylcholine <ESTEFANY Zimmerman Last Filed: 11/15/20 03:26> Mg given: 150 <ESTEFANY Zimmerman Last Filed: 11/15/20 03:26> Laryngoscope: Leonard <ESTEFANY Zimmerman Last Filed: 11/15/20 03:26> Assist device used: fiber optic device <ESTEFANY Zimmerman Last Filed: 11/15/20 03:26> ET tube size: cuffed <ESTEFANY Zimmerman Last Filed: 11/15/20 03:26> Tube secured depth (cm): 25 <ESTEFANY Zimmerman Last Filed: 11/15/20 03:26> Tube secured location: lips <ESTEFANY Zimmerman Last Filed: 11/15/20 03:26> Tube placement confirmation: visualized tube passing through cords, equal breath sounds bilaterally, no breath sounds over epigastrium and confirmation by capnometry <ESTEFANY Zimmerman Last Filed: 11/15/20 03:26> Patient tolerated procedure: well <ESTEFANY Zimmerman Last Filed: 11/15/20 03:26> Intubation complications: none <Brionna Anaya PA-C - Last Filed: 11/15/20 03:26> Additional comments: Dr. Disha Mancini, attending ED physician, was contacted prior to the procedure and was available if needed. Dr. Cummings contacted for vent and sedation settings. <Brionna Anaya PA-C - Last Filed: 11/15/20 03:26>
[2020-11-15] MEDS: FENTANYL 2,500MCG/NS250ML(*CRX 2,500 MCG/250 ML BAG IV CONT (02:30)
[2020-11-15] MEDS: MIDAZOLAM 100MG/NS 100ML(*CRX) 100 MG/100 ML BAG IV CONT ×2 (02:30→23:23)
[2020-11-15] MEDS: fentaNYL CITRATE INJ (*CRX) 100 MCG/2 ML VIAL (02:58)
--- NOTE | 2020-11-15 03:50 | PC.NURSE ---
Addendum entered by Darby Lakhani RN 11/15/20 08:59: At 0440, spoke with Dr. Cummings via telephone regarding patient sedation not managed. Patient still alert and awake asking why he is not sedated. Orders to start propofol gtt. (see MAR documentation.) Addendum entered by Darby Lakhani RN 11/15/20 08:47: At 0330. Patient continues to be wide awake post intubation. Currently on sedation. patient is talking over tube, writing questions and states when will I be in a coma? . Spoke with Blaire Staton regarding patient sedation. orders given for IV push Fentanyl (see MAR documentation). Original Note: Patient intubated at 0230 a.m. with 8.0 ET tube 25 at the lip. Ventilator settings as follows: 450Vt, rate 22, peep 10, 100% FiO2. Stat chest X-Ray ordered to confirm placement.
[2020-11-15] MEDS: PROPOFOL IV EMULSION 100 ML 33.21 MG IV CONT ×2 (04:20→08:46)
[2020-11-15] MEDS: ENOXAPARIN 40 MG/0.4 ML SYRINGE SUB-Q ×2 (05:16→15:06)
[2020-11-15 05:27] LABS: Alveolar/Arterial O2 Gradient 580.6 mmHg; Base Excess ABG -1.7 mEq/l (+/-2.0); Carboxyhemoglobin 0.3 % THb (0-2.0); Fractional Inspired Oxygen 100 %; HCO3 ABG 24.5 mEq/l (22.0-26.0); Methemoglobin ABG 0.4 %THb (0-1.5); Oxygen Content ABG 22.6 %vol (16.0-22.0); Oxygen Saturation ABG 95.9 % (95.0-100.0); Oxyhemoglobin 94.9 % THb (90.0-100.0); PCO2 ABG 46.5 mmHg (35.0-45.0); PO2 ABG 85.9 mmHg (80.0-100.0); PO2 FiO2 Ratio Arterial Blood 0.86 %; Reduced Hemoglobin 4.4 %THb (0-5.0); Total Hemoglobin 16.9 g/dL (12.0-18.0)
[2020-11-15] MEDS: CENTRAL LINE FLUSH 10 ML IV PUSH ×5 (07:00→23:00)
[2020-11-15] MEDS: IPRATROPIUM BR 0.02% INH SOLN 0.5 MG/2.5 ML VIAL INHALATION ×3 (08:33→20:44)
[2020-11-15] MEDS: ALBUTEROL SULFATE NEB 2.5 MG/0.5 ML INH INHALATION ×3 (08:33→20:44)
[2020-11-15] MEDS: BUDESONIDE RESPULE NEB 0.5 MG/2 ML AMP INHALATION ×2 (08:34→20:44)
--- NOTE | 2020-11-15 08:50 | ED.PROCEDURE ---
Procedures Intubation Intubation Date: 11/15/20 Intubation Time: 03:30 Consent: PAtient self extubated and requiring ventilation assistance. He was unresponsive on sedation and I was called to ICU to re intubated patient Nurse and respiratory ventilating patient with BVM. His oxygen saturation 91%. Paralytic: succinylcholine (120) Mg given: 120 Laryngoscope: fiber optic video scope ET tube size: cuffed Tube secured depth (cm): 25 Tube secured location: lips Tube placement confirmation: visualized tube passing through cords, equal breath sounds bilaterally and confirmation by capnometry Patient tolerated procedure: well Intubation complications: none
--- NOTE | 2020-11-15 09:01 | PC.NURSE ---
Addendum entered by Darby Lakhani RN 11/15/20 09:12: Patient reintubated at 0430 with 8.0 ET tube 24 at lip. No ventilator rate change indicated. Stat chest x-ray ordered to verify tube placement. Addendum entered by Daryb Lakhani RN 11/15/20 09:10: At 0400, [facility] ventilator alarms going on. Went to assess situation. Patient had coughed up ET tube and was laying in his lap. Patient stated I don't know what happened, I woke up and the tube was out . RT called and patient was bagged until ED physician could arrive to reintubate patient. Addendum entered by Darby Lakhani RN 11/15/20 09:08: At 0345, called Dr. Cummings. Patient still wide awake on ventilator despite sedation titrations. Patient trying to speak over vent and playing with cell phone. Orders to start propofol gtt. (see MAR documentation.) Addendum entered by Darby Lakhani RN 11/15/20 09:05: At 0300, patient continues to be agitated on ventilator despite sedation titrations made. Brionna notified. Orders to give IV push Fentanyl (See MAR documentation). Addendum entered by Darby Lakhani RN 11/15/20 09:05: Patient intubated at 0230 by SUZANNE Llamas. Original Note: Patient continues to desat, current O2 saturations 83-84% with good pleth. SUZANNE Staton notified. Decision made to intubate patient. Patient intubated with 8.0 ET tube at 25 at the lip. Patient set up on ventilator with settings as follows: 450 Vt, rate 22, peep 10, 100% FiO2. Stat chest x-ray ordered to confim placement. 16Fr OG tube inserted 60@ lip set to LIS.
[2020-11-15 09:33] LABS: Hemoglobin 15.6 g/dL (14.0-18.0); Mean Corpuscular HGB Conc 31.8 g/dl (32-36); Mean Corpuscular Hemoglobin 28.7 pg (26-34); Mean Corpuscular Volume 90.2 fl (80-100); Mean Platelet Volume 10.2 fl (7.4-10.4); Platelet Count Result 214 k/mm3 (150-375); Red Blood Count 5.43 M/mm3 (4.6-6.20); Red Cell Distribution Width 14.1 % (11.5-14.5); White Blood Count 8.1 K/mm3 (4.5-10.0)
[2020-11-15 09:35] LABS: Arterial Blood Gas Vent Mode CMV; Arterial Blood Gas Ventilator rate 22 /MIN; Device VENTILATOR
[2020-11-15 09:36] LABS: Arterial Blood Gas PEEP 10 cmH2O; Arterial Blood Gas Tidal Volume 450 ml
[2020-11-15 10:58] LABS: Alanine Aminotransferase 99 U/L (4-50); Albumin Level 3.4 g/dL (3.5-5.1); Alkaline Phosphatase 102 U/L (38-126); Anion Gap 11 mmol/L (8-16); Aspartate Amino Transferase 190 U/L (17-59); Bilirubin,Total 1.2 mg/dL (0.2-1.3); Blood Urea Nitrogen 29 mg/dL (9-20); Calcium 8.2 mg/dL (8.4-10.2); Carbon Dioxide 24 mmol/L (22-30); Chloride 100 mmol/L (98-107); Estimated CRCL calculation 109 ml/min; Estimated Glomerular Filt Rate > 60; Glucose 118 mg/dL (65-110); Magnesium 2.2 mg/dL (1.6-2.3); Phosphorus 5.7 mg/dL (2.5-4.5); Potassium 5.1 mmol/L (3.4-5.0); Sodium 135 mmol/L (137-145)
[2020-11-15] MEDS: MINERAL OIL/WHITE PETROLATUM OINTMENT 1 APPLIC EACH EYE ×2 (11:22→20:01)
[2020-11-15] MEDS: PROPOFOL IV EMULSION 100 ML 16.61 MG IV CONT ×2 (11:25→16:56)
[2020-11-15 11:43] LABS: Glucose Point of Care 124 mg/dl (65-105)
[2020-11-15 11:52] LABS: INR 0.9; Prothrombin Time 12.2 Seconds (11.1-14.7)
--- NOTE | 2020-11-15 13:00 | PC.NURSE ---
Updated spouse on patient's condition.
--- NOTE | 2020-11-15 13:34 | WPDINTPN ---
Progress Note: A&P Assessment and Plan (1) Acute respiratory distress syndrome (ARDS) due to 2019 novel coronavirus: Code(s): U07.1 - COVID-19; J80 - Acute respiratory distress syndrome Status: Acute Assessment and Plan: Acute respiratory failure likely related to COVID pneumonia -11/14/2020 patient was on high-flow therapy and non-rebreather, desaturated, was placed on BiPAP 14/8 with O2 sats of 98-100% on 80% FiO2 -11/15/2020 earlier was patient had emesis on BiPAP, was tried on high-flow therapy with desaturations, patient was intubated on 11/15/2020 -chest x-ray and ABGs reviewed, wean FiO2 as tolerated - continue n azithromycin and ceftriaxone (11/13/2020 received his 1st does at the outside hospital) -continue bronchodilators and Pulmicort (2) Pneumonia due to 2019 novel coronavirus: Code(s): U07.1 - COVID-19; J12.82 - Pneumonia due to coronavirus disease 2019 Status: Acute Assessment and Plan: Patient has been tested positive for COVID-19 on 11/13/2020. Patient has not received his vaccine -11/13/2020 started on dexamethasone -11/13/2020 started on remdesivir -11/13/2020 received tocilizumab at the outside hospital -continue with droplet, airborne and contact isolation/precautions -inflammatory markers are elevated, will continue to trend (3) Asthma: Code(s): J45.909 - Unspecified asthma, uncomplicated Status: Acute Assessment and Plan: Continue bronchodilators (4) DVT prophylaxis: Code(s): Z29.9 - Encounter for prophylactic measures, unspecified Status: Acute Assessment and Plan: Continue Lovenox Additional Plan Diet NPO, will start tube feeds Code status full code Critical care time spent: 35 minutes This dictation may have been done utilizing a voice recognition system. Attempts have been made to correct errors. However, there may be uncorrected grammatical, spelling, and recognition errors present. Due to a high probability of clinically significant, life threatening deterioration, the patient required my highest level of preparedness to intervene emergently and I personally spent this critical care time directly and personally managing the patient. This critical care time included obtaining a history; examining the patient; pulse oximetry; ordering and review of studies; arranging urgent treatment with development of a management plan; evaluation of patient's response to treatment; frequent reassessment; and discussions with other providers. It was exclusive of separately billable procedures and treating other patients and teaching time. Please see Assessment and Plan section and the rest of the note for further information on patient assessment and treatment Subjective Date/time seen: 11/15/20 13:34 Interval history: Reason for consult: Acute respiratory failure, COVID pneumonia -intubated on 11/15/2020 11/15/2020: Patient had episodes of emesis on BiPAP, patient was placed on a high-flow therapy on Airvo which he did not tolerate and desaturated. Patient was finally intubated early this morning. Patient remains on CMV mode of ventilation, peep of 10, FiO2 of 100% with adequate O2 sats. Patient remains sedated fentanyl, Versed, propofol. Urine output has been adequate, patient is febrile with a T-max of 101.1. Patient is hemodynamically stable Review of Systems Review of Systems: ROS unobtainable: Yes unobtainable due to endotracheal tube Exam Narrative: General: Obese patient, in no acute distress, HEENT: Pupils equal and reactive, sclera is clear Neck: Supple, thick neck, no lymphadenopathy Respiratory: Coarse breath sounds bilaterally, decreased at bases, bilateral rales Cardiovascular: Regular rate and rhythm, S1-S2 normal Abdomen: Patient is obese, is soft, nontender, non distended, normoactive bowel sounds : Olivares catheter in place, draining clear urine Neuro: Patient is intubated and sedated Skin: No lesions
[2020-11-15] MEDS: ROCURONIUM BROMIDE 50 MG/5 ML VIAL 100 MG IV PUSH (15:40)
[2020-11-15] MEDS: FENTANYL 2,500MCG/NS250ML(*CRX 2,500 MCG/250 ML BAG 15 MCG IV CONT (16:55)
[2020-11-15] MEDS: DEXAMETHASONE SOD PHOS INJ 4 MG/ML VIAL 6 MG IV PUSH (20:01)
[2020-11-15] MEDS: PROPOFOL IV EMULSION 100 ML 22.14 MG IV CONT (20:29)
[2020-11-15] MEDS: REMDESIVIR 100 MG/NS 250 ML 100 MG/250 ML BAG 250 MG IVPB (23:00)
[2020-11-16] VITALS (56 sets, daily range): BP systolic 129–189; BP diastolic 66–89; PULSE 52–84; RESP 21–27; TEMP 36.2–36.8; O2SAT 91–99
[2020-11-16] MEDS: PROPOFOL IV EMULSION 100 ML 22.14 MG IV CONT ×2 (00:18→06:33)
[2020-11-16] MEDS: ENOXAPARIN 40 MG/0.4 ML SYRINGE SUB-Q ×2 (02:00→15:31)
[2020-11-16] MEDS: IPRATROPIUM BR 0.02% INH SOLN 0.5 MG/2.5 ML VIAL INHALATION ×4 (02:46→21:07)
[2020-11-16] MEDS: ALBUTEROL SULFATE NEB 2.5 MG/0.5 ML INH INHALATION ×4 (02:46→21:07)
[2020-11-16] MEDS: CISATRACURIUM BESYLATE 20 MG/10 ML VIAL 27.7 MG IV PUSH (03:34)
[2020-11-16] MEDS: PROPOFOL IV EMULSION 100 ML 38.75 MG IV CONT (03:58)
[2020-11-16] MEDS: CISATRACURIUM BESYLATE 200 MG in DEXTROSE 5% 80 ML 16.61 ML IV CONT (04:22)
[2020-11-16] MEDS: CENTRAL LINE FLUSH 10 ML IV PUSH ×6 (05:04→23:16)
[2020-11-16 05:51] LABS: Alveolar/Arterial O2 Gradient 455.2 mmHg; Base Excess ABG 0.2 mEq/l (+/-2.0); Carboxyhemoglobin 0.3 % THb (0-2.0); Fractional Inspired Oxygen 90 %; Methemoglobin ABG 0.6 %THb (0-1.5); Modified Allen's Test Pass; Oxygen Saturation ABG 98.2 % (95.0-100.0); Oxyhemoglobin 96.9 % THb (90.0-100.0); PCO2 ABG 57.2 mmHg (35.0-45.0); PO2 ABG 127.9 mmHg (80.0-100.0); PO2 FiO2 Ratio Arterial Blood 1.42 %; Reduced Hemoglobin 2.2 %THb (0-5.0); Site Drawn LEFT RADIAL; Total Hemoglobin 16.8 g/dL (12.0-18.0); pH ABG 7.307 (7.350-7.450)
[2020-11-16 05:51] LABS: Hematocrit 47.8 % (42.0-52.0); Hemoglobin 15.6 g/dL (14.0-18.0); Mean Corpuscular HGB Conc 32.6 g/dl (32-36); Mean Corpuscular Volume 88.8 fl (80-100); Mean Platelet Volume 10.2 fl (7.4-10.4); Platelet Count Result 227 k/mm3 (150-375); Red Blood Count 5.38 M/mm3 (4.6-6.20); Red Cell Distribution Width 13.5 % (11.5-14.5); White Blood Count 8.4 K/mm3 (4.5-10.0)
[2020-11-16 05:52] LABS: Arterial Blood Gas PEEP 10 cmH2O; Arterial Blood Gas Tidal Volume 450 ml; Arterial Blood Gas Vent Mode CMV; Arterial Blood Gas Ventilator rate 22 /MIN; Device VENTILATOR
[2020-11-16 06:13] LABS: Alanine Aminotransferase 87 U/L (4-50); Albumin Level 3.2 g/dL (3.5-5.1); Alkaline Phosphatase 112 U/L (38-126); Anion Gap 9 mmol/L (8-16); Aspartate Amino Transferase 140 U/L (17-59); Bilirubin,Total 1.2 mg/dL (0.2-1.3); Blood Urea Nitrogen 27 mg/dL (9-20); Calcium 8.1 mg/dL (8.4-10.2); Carbon Dioxide 24 mmol/L (22-30); Chloride 102 mmol/L (98-107); Estimated CRCL calculation 130 ml/min; Estimated Glomerular Filt Rate > 60; Glucose 127 mg/dL (65-110); Magnesium 2.5 mg/dL (1.6-2.3); Phosphorus 5.3 mg/dL (2.5-4.5); Potassium 4.8 mmol/L (3.4-5.0); Sodium 135 mmol/L (137-145)
[2020-11-16] MEDS: BUDESONIDE RESPULE NEB 0.5 MG/2 ML AMP INHALATION ×2 (08:38→21:07)
[2020-11-16] MEDS: MONTELUKAST SODIUM 10 MG TABLET PO (08:50)
[2020-11-16] MEDS: MINERAL OIL/WHITE PETROLATUM OINTMENT 1 APPLIC EACH EYE ×2 (08:50→20:50)
[2020-11-16 09:06] LABS: INR 0.9; Prothrombin Time 11.9 Seconds (11.1-14.7)
--- NOTE | 2020-11-16 10:06 | PC.NURSE ---
Updated spouse on patient's condition and plan of care.
[2020-11-16] MEDS: PROPOFOL IV EMULSION 100 ML 27.68 MG IV CONT ×4 (11:05→23:16)
--- NOTE | 2020-11-16 11:12 | PCDIET ---
Nutrition Follow-Up Complete: Nutrition Diagnosis: Inadequate oral intake related to oral intubation as evidenced by NPO status. Nutrition Goal: Patient to meet estimated nutritional needs. Goal in progress. MD increased tube feedings to goal of 50mL/hr Vital 1.2 for 1320kcal (1904kcal with Propofol at current rate) and 82g protein, given 22 hour daily infusion. 30mL water flush every 4 hours continued. Last recorded weight is 184.5 kg which is unchanged. Bowel Motility: BM x 1 on 11/15/20. Gastric residuals 110mL and below. Labs Reviewed: Glu (127), Na (135), Alb (3.2), Celeste Ca (8.74), PO4 (5.3), Mg (2.5) Meds Noted: Albuterol, Zithromax, Pulmicort, Rocephin, Nimbex, Decadron, Fentanyl, Atrovent, Versed, Remdesivir, Propofol (rate of 22.14mL/hr provides 584kcal per day) Additional Notes: No documented skin breakdown. Will continue to monitor with same goal. Nutrition Monitoring and Evaluation: Follow up every Thursday/Thursday.
[2020-11-16] MEDS: SODIUM CHLORIDE 0.9% IV 500 ML IV CONT (11:39)
[2020-11-16] MEDS: CISATRACURIUM BESYLATE 200 MG in DEXTROSE 5% 80 ML 13.84 ML IV CONT ×2 (11:40→18:24)
[2020-11-16] MEDS: FENTANYL 2,500MCG/NS250ML(*CRX 2,500 MCG/250 ML BAG 15 MCG IV CONT (11:50)
--- NOTE | 2020-11-16 12:25 | WPDINTPN ---
Progress Note: A&P Assessment and Plan (1) Acute respiratory distress syndrome (ARDS) due to 2019 novel coronavirus: Code(s): U07.1 - COVID-19; J80 - Acute respiratory distress syndrome Status: Acute Assessment and Plan: Acute respiratory failure likely related to COVID pneumonia -11/14/2020 patient was on high-flow therapy and non-rebreather, desaturated, was placed on BiPAP 14/8 with O2 sats of 98-100% on 80% FiO2 -11/15/2020 earlier was patient had emesis on BiPAP, was tried on high-flow therapy with desaturations, patient was intubated on 11/15/2020 -chest x-ray and ABGs reviewed, wean FiO2 as tolerated - continue azithromycin and ceftriaxone (11/13/2020 received his 1st does at the outside hospital) -continue bronchodilators and Pulmicort -currently chemically paralyzed with NMB infusion -daily 18 hours of prone ventilation as tolerated (2) Pneumonia due to 2019 novel coronavirus: Code(s): U07.1 - COVID-19; J12.82 - Pneumonia due to coronavirus disease 2019 Status: Acute Assessment and Plan: Patient has been tested positive for COVID-19 on 11/13/2020. Patient has not received his vaccine -11/13/2020 started on dexamethasone -11/13/2020 started on remdesivir -11/13/2020 received tocilizumab at the outside hospital -continue with droplet, airborne and contact isolation/precautions -inflammatory markers are elevated, will continue to trend (3) Asthma: Code(s): J45.909 - Unspecified asthma, uncomplicated Status: Acute Assessment and Plan: Continue bronchodilators (4) DVT prophylaxis: Code(s): Z29.9 - Encounter for prophylactic measures, unspecified Status: Acute Assessment and Plan: Continue Lovenox (5) Hypertension: Code(s): I10 - Essential (primary) hypertension Status: Acute Assessment and Plan: P.r.n. hydralazine Additional Plan Tube feeds as tolerated Add sliding scale insulin for glycemic control Code status full code Critical care time spent: 35 minutes This dictation may have been done utilizing a voice recognition system. Attempts have been made to correct errors. However, there may be uncorrected grammatical, spelling, and recognition errors present. Due to a high probability of clinically significant, life threatening deterioration, the patient required my highest level of preparedness to intervene emergently and I personally spent this critical care time directly and personally managing the patient. This critical care time included obtaining a history; examining the patient; pulse oximetry; ordering and review of studies; arranging urgent treatment with development of a management plan; evaluation of patient's response to treatment; frequent reassessment; and discussions with other providers. It was exclusive of separately billable procedures and treating other patients and teaching time. Please see Assessment and Plan section and the rest of the note for further information on patient assessment and treatment Subjective Date/time seen: 11/16/20 Overnight events reviewed. Afebrile Continues to be on mechanical ventilation and in prone position Continues to be on with sedation and neuromuscular robert infusion Vitals acceptable Interval history: Reason for consult: Acute respiratory failure, COVID pneumonia -intubated on 11/15/2020 Review of Systems Review of Systems: All systems reviewed & are unremarkable except as noted in HPI and below ROS unobtainable: Yes unobtainable due to endotracheal tube Exam Narrative: General: Obese patient, in no acute distress, HEENT: Pupils equal and reactive, sclera is clear Neck: Supple, thick neck, no lymphadenopathy Respiratory: Coarse breath sounds bilaterally, decreased at bases, bilateral rales Cardiovascular: Regular rate and rhythm, S1-S2 normal Abdomen: Patient is obese, is soft, nontender, non distended, normoactive bowel sounds : Olivares catheter in place, quin
[2020-11-16 16:03] LABS: Glucose Point of Care 106 mg/dl (65-105)
[2020-11-16 18:39] LABS: Glucose Point of Care 111 mg/dl (65-105)
[2020-11-16] MEDS: DEXAMETHASONE SOD PHOS INJ 4 MG/ML VIAL 6 MG IV PUSH (20:50)
[2020-11-16] MEDS: REMDESIVIR 100 MG/NS 250 ML 100 MG/250 ML BAG 250 MG IVPB (23:15)
[2020-11-16] MEDS: MIDAZOLAM 100MG/NS 100ML(*CRX) 100 MG/100 ML BAG IV CONT (23:18)
[2020-11-17] VITALS (60 sets, daily range): BP systolic 127–198; BP diastolic 73–152; PULSE 59–143; RESP 22–23; TEMP 36.7–37.3; O2SAT 87–100
[2020-11-17 00:28] LABS: Glucose Point of Care 102 mg/dl (65-105)
[2020-11-17] MEDS: PROPOFOL IV EMULSION 100 ML 27.68 MG IV CONT ×5 (01:50→16:04)
[2020-11-17] MEDS: ENOXAPARIN 40 MG/0.4 ML SYRINGE SUB-Q ×2 (01:51→16:08)
[2020-11-17] MEDS: CISATRACURIUM BESYLATE 200 MG in DEXTROSE 5% 80 ML 13.84 ML IV CONT ×2 (01:52→09:25)
[2020-11-17] MEDS: IPRATROPIUM BR 0.02% INH SOLN 0.5 MG/2.5 ML VIAL INHALATION ×4 (02:59→20:39)
[2020-11-17] MEDS: ALBUTEROL SULFATE NEB 2.5 MG/0.5 ML INH INHALATION ×4 (02:59→20:38)
[2020-11-17] MEDS: FENTANYL 2,500MCG/NS250ML(*CRX 2,500 MCG/250 ML BAG 15 MCG IV CONT (03:38)
[2020-11-17] MEDS: CENTRAL LINE FLUSH 10 ML IV PUSH ×6 (05:46→20:29)
[2020-11-17 05:57] LABS: Alveolar/Arterial O2 Gradient 357.4 mmHg; Base Excess ABG 2.7 mEq/l (+/-2.0); Carboxyhemoglobin 0.2 % THb (0-2.0); Fractional Inspired Oxygen 80 %; HCO3 ABG 28.1 mEq/l (22.0-26.0); Methemoglobin ABG 0.5 %THb (0-1.5); Oxygen Content ABG 22.6 %vol (16.0-22.0); Oxygen Saturation ABG 99.1 % (95.0-100.0); PCO2 ABG 45.7 mmHg (35.0-45.0); PO2 FiO2 Ratio Arterial Blood 2.06 %; Reduced Hemoglobin 1.3 %THb (0-5.0); Total Hemoglobin 16.2 g/dL (12.0-18.0); pH ABG 7.407 (7.350-7.450)
[2020-11-17 05:58] LABS: Device VENTILATOR; Modified Allen's Test Pass; Site Drawn RIGHT RADIAL
[2020-11-17 05:59] LABS: Arterial Blood Gas PEEP 10 cmH2O; Arterial Blood Gas Tidal Volume 450 ml; Arterial Blood Gas Vent Mode CMV; Arterial Blood Gas Ventilator rate 22 /MIN
[2020-11-17 06:12] LABS: Hematocrit 43.8 % (42.0-52.0); Hemoglobin 14.7 g/dL (14.0-18.0); Mean Corpuscular HGB Conc 33.6 g/dl (32-36); Mean Corpuscular Hemoglobin 30.4 pg (26-34); Mean Corpuscular Volume 90.5 fl (80-100); Mean Platelet Volume 10.2 fl (7.4-10.4); Platelet Count Result 240 k/mm3 (150-375); Red Blood Count 4.84 M/mm3 (4.6-6.20); Red Cell Distribution Width 13.5 % (11.5-14.5); White Blood Count 7.2 K/mm3 (4.5-10.0)
[2020-11-17 06:23] LABS: INR 0.8; Prothrombin Time 11.5 Seconds (11.1-14.7)
[2020-11-17 06:54] LABS: Alanine Aminotransferase 83 U/L (4-50); Albumin Level 2.7 g/dL (3.5-5.1); Alkaline Phosphatase 95 U/L (38-126); Anion Gap 8 mmol/L (8-16); Aspartate Amino Transferase 104 U/L (17-59); Bilirubin,Total 0.6 mg/dL (0.2-1.3); Blood Urea Nitrogen 20 mg/dL (9-20); Calcium 6.9 mg/dL (8.4-10.2); Carbon Dioxide 23 mmol/L (22-30); Chloride 98 mmol/L (98-107); Estimated CRCL calculation 163 ml/min; Estimated Glomerular Filt Rate > 60; Glucose 115 mg/dL (65-110); Magnesium 2.3 mg/dL (1.6-2.3); Phosphorus 3.5 mg/dL (2.5-4.5); Potassium 4.7 mmol/L (3.4-5.0); Sodium 129 mmol/L (137-145)
[2020-11-17] MEDS: BUDESONIDE RESPULE NEB 0.5 MG/2 ML AMP INHALATION ×2 (09:15→20:39)
[2020-11-17] MEDS: MINERAL OIL/WHITE PETROLATUM OINTMENT 1 APPLIC EACH EYE ×2 (09:29→20:28)
--- NOTE | 2020-11-17 11:04 | WPDINTPN ---
Progress Note: A&P Assessment and Plan (1) Acute respiratory distress syndrome (ARDS) due to 2019 novel coronavirus: Code(s): U07.1 - COVID-19; J80 - Acute respiratory distress syndrome Status: Acute Assessment and Plan: Acute respiratory failure likely related to COVID pneumonia -11/14/2020 patient was on high-flow therapy and non-rebreather, desaturated, was placed on BiPAP 14/8 with O2 sats of 98-100% on 80% FiO2 -11/15/2020 earlier was patient had emesis on BiPAP, was tried on high-flow therapy with desaturations, patient was intubated on 11/15/2020 -chest x-ray and ABGs reviewed and shows persistent diffuse lung disease -FiO2 weaned down to 60% on PEEP of 10 -will complete a 5 day course of azithromycin and ceftriaxone today (11/13/2020 received his 1st does at the outside hospital) -continue bronchodilators and Pulmicort -currently chemically paralyzed with NMB infusion -daily 18 hours of prone ventilation as tolerated (2) Pneumonia due to 2019 novel coronavirus: Code(s): U07.1 - COVID-19; J12.82 - Pneumonia due to coronavirus disease 2019 Status: Acute Assessment and Plan: Patient has been tested positive for COVID-19 on 11/13/2020. Patient has not received his vaccine -11/13/2020 started on dexamethasone -11/13/2020 started on remdesivir -11/13/2020 received tocilizumab at the outside hospital -continue with droplet, airborne and contact isolation/precautions -inflammatory markers are elevated, will continue to trend (3) Asthma: Code(s): J45.909 - Unspecified asthma, uncomplicated Status: Acute Assessment and Plan: Continue bronchodilators Also on steroids (4) DVT prophylaxis: Code(s): Z29.9 - Encounter for prophylactic measures, unspecified Status: Acute Assessment and Plan: Continue Lovenox PPI for stress ulcer prophylaxis (5) Hypertension: Code(s): I10 - Essential (primary) hypertension Status: Acute Assessment and Plan: P.r.n. hydralazine (6) Electrolyte abnormality: Code(s): E87.8 - Other disorders of electrolyte and fluid balance, not elsewhere classified Status: Acute Assessment and Plan: Replace low calcium Additional Plan Tube feeds as tolerated Add sliding scale insulin for glycemic control Code status full code I spoke to patient's by phone yesterday and updated her with patient's current condition, treatment plan and guarded prognosis Critical care time spent: 32 minutes This dictation may have been done utilizing a voice recognition system. Attempts have been made to correct errors. However, there may be uncorrected grammatical, spelling, and recognition errors present. Due to a high probability of clinically significant, life threatening deterioration, the patient required my highest level of preparedness to intervene emergently and I personally spent this critical care time directly and personally managing the patient. This critical care time included obtaining a history; examining the patient; pulse oximetry; ordering and review of studies; arranging urgent treatment with development of a management plan; evaluation of patient's response to treatment; frequent reassessment; and discussions with other providers. It was exclusive of separately billable procedures and treating other patients and teaching time. Please see Assessment and Plan section and the rest of the note for further information on patient assessment and treatment Subjective Date/time seen: 11/17/20 11:04 No major change overnight. Continues to be on mechanical ventilation. Continues to be heavily sedated and chemically paralyzed Afebrile Placed in prone position overnight Interval history: Reason for consult: Acute respiratory failure, COVID pneumonia -intubated on 11/15/2020 Review of Systems Review of Systems: All systems reviewed & are unremarkable except as noted in HPI and below ROS unobtainable: Yes unobtai
[2020-11-17 11:18] LABS: Triglycerides 2100 mg/dL (<150)
[2020-11-17] MEDS: CALCIUM GLUC 2,000 MG/NS 100ML 2,000 MG/100 ML BAG 100 MG IVPB (12:05)
[2020-11-17 12:29] LABS: Glucose Point of Care 115 mg/dl (65-105)
[2020-11-17] MEDS: hydrALAZINE HCL 20 MG/ML VIAL IV PUSH (16:16)
[2020-11-17] MEDS: dilTIAZem HCl INJ 25 MG/5 ML VIAL 20 MG IV PUSH ×2 (17:17→18:40)
[2020-11-17] MEDS: CISATRACURIUM BESYLATE 200 MG in DEXTROSE 5% 80 ML 16.61 ML IV CONT ×2 (17:32→23:43)
[2020-11-17 17:36] LABS: Glucose Point of Care 120 mg/dl (65-105)
[2020-11-17] MEDS: PROPOFOL IV EMULSION 100 ML 55.35 MG IV CONT ×4 (18:00→23:10)
[2020-11-17] MEDS: DEXAMETHASONE SOD PHOS INJ 4 MG/ML VIAL 6 MG IV PUSH (20:30)
[2020-11-17] MEDS: FENTANYL 2,500MCG/NS250ML(*CRX 2,500 MCG/250 ML BAG 17.5 MCG IV CONT (20:33)
[2020-11-17] MEDS: MIDAZOLAM 100MG/NS 100ML(*CRX) 100 MG/100 ML BAG 8 MG IV CONT (20:35)
[2020-11-17] MEDS: METOPROLOL TARTRATE INJ 5 MG/5 ML VIAL IV PUSH (20:44)
[2020-11-17] MEDS: REMDESIVIR 100 MG/NS 250 ML 100 MG/250 ML BAG 250 MG IVPB (21:18)
[2020-11-17 23:51] LABS: Glucose Point of Care 147 mg/dl (65-105)
[2020-11-18] VITALS (57 sets, daily range): BP systolic 113–155; BP diastolic 60–87; PULSE 50–127; RESP 22; TEMP 37.1–37.4; O2SAT 90–97
[2020-11-18] MEDS: PROPOFOL IV EMULSION 100 ML 55.35 MG IV CONT ×13 (00:18→23:43)
[2020-11-18] MEDS: ENOXAPARIN 40 MG/0.4 ML SYRINGE SUB-Q (02:00)
[2020-11-18] MEDS: ALBUTEROL SULFATE NEB 2.5 MG/0.5 ML INH INHALATION ×4 (03:44→21:20)
[2020-11-18] MEDS: IPRATROPIUM BR 0.02% INH SOLN 0.5 MG/2.5 ML VIAL INHALATION ×4 (03:44→21:20)
[2020-11-18 04:45] LABS: Hematocrit 43.7 % (42.0-52.0); Mean Corpuscular HGB Conc 34.3 g/dl (32-36); Mean Corpuscular Hemoglobin 32.1 pg (26-34); Mean Corpuscular Volume 93.4 fl (80-100); Mean Platelet Volume 10.5 fl (7.4-10.4); Platelet Count Result 256 k/mm3 (150-375); Red Blood Count 4.68 M/mm3 (4.6-6.20); Red Cell Distribution Width 13.7 % (11.5-14.5); White Blood Count 10.5 K/mm3 (4.5-10.0)
[2020-11-18 05:01] LABS: INR 0.9; Prothrombin Time 11.8 Seconds (11.1-14.7)
[2020-11-18] MEDS: CISATRACURIUM BESYLATE 200 MG in DEXTROSE 5% 80 ML 16.61 ML IV CONT (05:50)
[2020-11-18] MEDS: CENTRAL LINE FLUSH 10 ML IV PUSH ×4 (05:53→21:00)
[2020-11-18 06:08] LABS: Alanine Aminotransferase 75 U/L (4-50); Albumin Level 2.5 g/dL (3.5-5.1); Alkaline Phosphatase 76 U/L (38-126); Anion Gap 9 mmol/L (8-16); Aspartate Amino Transferase 92 U/L (17-59); Bilirubin,Total 0.7 mg/dL (0.2-1.3); Blood Urea Nitrogen 20 mg/dL (9-20); Calcium 6.2 mg/dL (8.4-10.2); Carbon Dioxide 21 mmol/L (22-30); Chloride 91 mmol/L (98-107); Estimated CRCL calculation 185 ml/min; Estimated Glomerular Filt Rate > 60; Glucose 109 mg/dL (65-110); Phosphorus 4.2 mg/dL (2.5-4.5); Potassium 5.3 mmol/L (3.4-5.0); Sodium 121 mmol/L (137-145)
[2020-11-18 06:28] LABS: Alveolar/Arterial O2 Gradient 360.6 mmHg; Base Excess ABG 0.5 mEq/l (+/-2.0); Carboxyhemoglobin 0.2 % THb (0-2.0); Fractional Inspired Oxygen 70 %; HCO3 ABG 27.4 mEq/l (22.0-26.0); Methemoglobin ABG 0.4 %THb (0-1.5); Oxygen Content ABG 21.8 %vol (16.0-22.0); Oxygen Saturation ABG 95.3 % (95.0-100.0); Oxyhemoglobin 94.9 % THb (90.0-100.0); PCO2 ABG 52.6 mmHg (35.0-45.0); PO2 FiO2 Ratio Arterial Blood 1.17 %; Reduced Hemoglobin 4.5 %THb (0-5.0); Site Drawn RIGHT RADIAL; Total Hemoglobin 16.3 g/dL (12.0-18.0); pH ABG 7.335 (7.350-7.450)
[2020-11-18 06:29] LABS: Arterial Blood Gas PEEP 12 cmH2O; Arterial Blood Gas Tidal Volume 450 ml; Arterial Blood Gas Vent Mode CMV; Arterial Blood Gas Ventilator rate 22 /MIN; Device VENTILATOR; Modified Allen's Test Unable to perform
[2020-11-18] MEDS: PANTOPRAZOLE SODIUM IV 40 MG VIAL IV PUSH (08:14)
[2020-11-18] MEDS: MINERAL OIL/WHITE PETROLATUM OINTMENT 1 APPLIC EACH EYE ×2 (08:14→20:28)
[2020-11-18] MEDS: BUDESONIDE RESPULE NEB 0.5 MG/2 ML AMP INHALATION ×2 (08:33→21:20)
[2020-11-18] MEDS: MIDAZOLAM 100MG/NS 100ML(*CRX) 100 MG/100 ML BAG 8 MG IV CONT ×2 (09:02→22:23)
--- NOTE | 2020-11-18 10:17 | WPDINTPN ---
Progress Note: A&P Assessment and Plan (1) Acute respiratory distress syndrome (ARDS) due to 2019 novel coronavirus: Code(s): U07.1 - COVID-19; J80 - Acute respiratory distress syndrome Status: Acute Assessment and Plan: Acute respiratory failure likely related to COVID pneumonia -11/14/2020 patient was on high-flow therapy and non-rebreather, desaturated, was placed on BiPAP 14/8 with O2 sats of 98-100% on 80% FiO2 -11/15/2020 earlier was patient had emesis on BiPAP, was tried on high-flow therapy with desaturations, patient was intubated on 11/15/2020 -chest x-ray and ABGs reviewed and shows persistent diffuse lung disease -FiO2 weaned down to 70% on PEEP of 12 - patient has completed a 5 day course of azithromycin and ceftriaxone -continue bronchodilators and Pulmicort -currently chemically paralyzed with NMB infusion -daily 18 hours of prone ventilation as tolerated (2) Pneumonia due to 2019 novel coronavirus: Code(s): U07.1 - COVID-19; J12.82 - Pneumonia due to coronavirus disease 2019 Status: Acute Assessment and Plan: Patient has been tested positive for COVID-19 on 11/13/2020. Patient has not received his vaccine -11/13/2020 started on dexamethasone -11/13/2020 started on remdesivir -11/13/2020 received tocilizumab at the outside hospital -continue with droplet, airborne and contact isolation/precautions -inflammatory markers are elevated, will continue to trend (3) Asthma: Code(s): J45.909 - Unspecified asthma, uncomplicated Status: Acute Assessment and Plan: Continue bronchodilators Also on steroids (4) DVT prophylaxis: Code(s): Z29.9 - Encounter for prophylactic measures, unspecified Status: Acute Assessment and Plan: Continue Lovenox PPI for stress ulcer prophylaxis (5) Hypertension: Code(s): I10 - Essential (primary) hypertension Status: Acute Assessment and Plan: P.r.n. hydralazine (6) Electrolyte abnormality: Code(s): E87.8 - Other disorders of electrolyte and fluid balance, not elsewhere classified Status: Acute Assessment and Plan: patient's sodium has decreased to 121. I am going to repeat BMP to confirm and then treat accordingly. if confirmed, will decrease free water flushes and administer some saline potassium also 5.3 - will give a dose of Kayexalate Replace low calcium (7) Atrial fibrillation with rapid ventricular response: Code(s): I48.91 - Unspecified atrial fibrillation Status: Acute Assessment and Plan: continue Cardizem infusion and p.r.n. IV Lopressor change Lovenox to therapeutic anticoagulation dose. as patient's BMI is 52, dose will be adjusted to 0.75 milligram/kg q.12 hours also add aspirin Additional Plan Tube feeds as tolerated Add sliding scale insulin for glycemic control Code status full code Critical care time spent: 30 minutes This dictation may have been done utilizing a voice recognition system. Attempts have been made to correct errors. However, there may be uncorrected grammatical, spelling, and recognition errors present. Due to a high probability of clinically significant, life threatening deterioration, the patient required my highest level of preparedness to intervene emergently and I personally spent this critical care time directly and personally managing the patient. This critical care time included obtaining a history; examining the patient; pulse oximetry; ordering and review of studies; arranging urgent treatment with development of a management plan; evaluation of patient's response to treatment; frequent reassessment; and discussions with other providers. It was exclusive of separately billable procedures and treating other patients and teaching time. Please see Assessment and Plan section and the rest of the note for further information on patient assessment and treatment Subjective Date/time seen: 11/18/20 Overnight events r
[2020-11-18] MEDS: FENTANYL 2,500MCG/NS250ML(*CRX 2,500 MCG/250 ML BAG 17.5 MCG IV CONT (11:35)
[2020-11-18] MEDS: ASPIRIN 325 MG TABLET FEED TUBE (11:47)
[2020-11-18] MEDS: SODIUM POLYSTYRENE SULFONONATE 15 GM/60 ML BTL 30 GM FEED TUBE (12:48)
[2020-11-18] MEDS: CALCIUM GLUC 2,000 MG/NS 100ML 2,000 MG/100 ML BAG 100 MG IVPB (12:49)
[2020-11-18 12:55] LABS: Anion Gap 6 mmol/L (8-16); Blood Urea Nitrogen 25 mg/dL (9-20); Calcium 7.7 mg/dL (8.4-10.2); Carbon Dioxide 27 mmol/L (22-30); Chloride 99 mmol/L (98-107); Estimated CRCL calculation 147 ml/min; Estimated Glomerular Filt Rate > 60; Glucose 184 mg/dL (65-110); Potassium 5.4 mmol/L (3.4-5.0); Sodium 132 mmol/L (137-145)
[2020-11-18 13:02] LABS: Glucose Point of Care 124 mg/dl (65-105)
[2020-11-18] MEDS: CISATRACURIUM BESYLATE 200 MG in DEXTROSE 5% 80 ML 11.07 ML IV CONT (14:10)
[2020-11-18] MEDS: ENOXAPARIN 100 MG, ENOXAPARIN 40 MG 140 MG SUB-Q (14:12)
[2020-11-18] MEDS: FUROSEMIDE INJ 40 MG/4 ML VIAL IV PUSH (14:22)
[2020-11-18] MEDS: METOCLOPRAMIDE HCL 10 MG/10 ML SOLN UDC 5 MG PO ×3 (16:14→23:22)
[2020-11-18 18:30] LABS: Glucose Point of Care 121 mg/dl (65-105)
[2020-11-18] MEDS: DEXAMETHASONE SOD PHOS INJ 4 MG/ML VIAL 6 MG IV PUSH (20:27)
[2020-11-18] MEDS: CISATRACURIUM BESYLATE 200 MG in DEXTROSE 5% 80 ML 13.84 ML IV CONT (22:10)
[2020-11-19] VITALS (61 sets, daily range): BP systolic 112–170; BP diastolic 78–92; PULSE 60–81; RESP 2–223; TEMP 36.7–37.3; O2SAT 90–99
[2020-11-19 00:29] LABS: Glucose Point of Care 141 mg/dl (65-105)
[2020-11-19] MEDS: PROPOFOL IV EMULSION 100 ML 55.35 MG IV CONT ×13 (01:29→23:57)
[2020-11-19] MEDS: ALBUTEROL SULFATE NEB 2.5 MG/0.5 ML INH INHALATION ×4 (02:53→19:30)
[2020-11-19] MEDS: IPRATROPIUM BR 0.02% INH SOLN 0.5 MG/2.5 ML VIAL INHALATION ×4 (02:53→19:30)
[2020-11-19] MEDS: ENOXAPARIN 100 MG, ENOXAPARIN 40 MG 140 MG SUB-Q ×2 (03:00→13:11)
[2020-11-19] MEDS: FENTANYL 2,500MCG/NS250ML(*CRX 2,500 MCG/250 ML BAG 17.5 MCG IV CONT ×2 (03:10→17:29)
[2020-11-19 05:45] LABS: Base Excess ABG 3.4 mEq/l (+/-2.0); Carboxyhemoglobin 0.4 % THb (0-2.0); Fractional Inspired Oxygen 70 %; HCO3 ABG 30.9 mEq/l (22.0-26.0); Methemoglobin ABG 0.4 %THb (0-1.5); Oxygen Content ABG 20.8 %vol (16.0-22.0); Oxygen Saturation ABG 93.3 % (95.0-100.0); Oxyhemoglobin 92.9 % THb (90.0-100.0); PCO2 ABG 58.5 mmHg (35.0-45.0); PO2 ABG 72.2 mmHg (80.0-100.0); PO2 FiO2 Ratio Arterial Blood 1.03 %; Reduced Hemoglobin 6.3 %THb (0-5.0); Total Hemoglobin 15.9 g/dL (12.0-18.0); pH ABG 7.341 (7.350-7.450)
[2020-11-19 05:46] LABS: Arterial Blood Gas Ventilator rate 22 /MIN; Device VENTILATOR; Modified Allen's Test Unable to perform; Site Drawn RIGHT RADIAL
[2020-11-19 05:47] LABS: Arterial Blood Gas PEEP 12 cmH2O; Arterial Blood Gas Tidal Volume 450 ml; Arterial Blood Gas Vent Mode CMV
[2020-11-19] MEDS: CISATRACURIUM BESYLATE 200 MG in DEXTROSE 5% 80 ML 13.84 ML IV CONT ×2 (05:52→20:23)
[2020-11-19] MEDS: CENTRAL LINE FLUSH 10 ML IV PUSH ×4 (06:40→22:16)
[2020-11-19] MEDS: METOCLOPRAMIDE HCL 10 MG/10 ML SOLN UDC 5 MG PO ×2 (06:40→11:31)
[2020-11-19 07:01] LABS: Hematocrit 44.8 % (42.0-52.0); Hemoglobin 14.5 g/dL (14.0-18.0); Mean Corpuscular HGB Conc 32.4 g/dl (32-36); Mean Corpuscular Hemoglobin 29.1 pg (26-34); Mean Corpuscular Volume 89.8 fl (80-100); Platelet Count Result 280 k/mm3 (150-375); Red Blood Count 4.99 M/mm3 (4.6-6.20); Red Cell Distribution Width 13.4 % (11.5-14.5); White Blood Count 15.1 K/mm3 (4.5-10.0)
[2020-11-19] MEDS: BUDESONIDE RESPULE NEB 0.5 MG/2 ML AMP INHALATION ×2 (08:24→19:30)
[2020-11-19 08:32] LABS: NT Pro B Type Natriuretic Pept 1180 pg/mL (5-100)
[2020-11-19 08:43] LABS: Alanine Aminotransferase 79 U/L (4-50); Albumin Level 2.9 g/dL (3.5-5.1); Alkaline Phosphatase 98 U/L (38-126); Anion Gap 4 mmol/L (8-16); Aspartate Amino Transferase 81 U/L (17-59); Blood Urea Nitrogen 33 mg/dL (9-20); Calcium 7.9 mg/dL (8.4-10.2); Carbon Dioxide 28 mmol/L (22-30); Chloride 101 mmol/L (98-107); Estimated CRCL calculation 136 ml/min; Estimated Glomerular Filt Rate > 60; Glucose 130 mg/dL (65-110); Magnesium 2.5 mg/dL (1.6-2.3); Phosphorus 4.2 mg/dL (2.5-4.5); Potassium 4.8 mmol/L (3.4-5.0); Sodium 133 mmol/L (137-145)
[2020-11-19] MEDS: MINERAL OIL/WHITE PETROLATUM OINTMENT 1 APPLIC EACH EYE ×2 (09:00→20:26)
[2020-11-19] MEDS: ASPIRIN 325 MG TABLET FEED TUBE (09:02)
[2020-11-19] MEDS: PANTOPRAZOLE SODIUM IV 40 MG VIAL IV PUSH (09:02)
--- NOTE | 2020-11-19 10:41 | PCDIET ---
Nutrition Follow-Up Complete: Nutrition Diagnosis: Inadequate oral intake related to oral intubation as evidenced by NPO status. Nutrition Goal: Patient to meet estimated nutritional needs. Goal in progress. Patient receiving Vital 1.2 at 20mL/hr due to elevated residual (300mL documented) overnight. Reglan has been initiated. Recommend continuing rate of 20mL/hr due to significant amount of calories provided from Propofol. Last recorded weight is 198.4 kg which is increased from last review. +I/O. Bowel Motility: Last documented BM on 11/15/20 x 1. Labs Reviewed: WBC (15.1), Glu (130), Na (133), Alb (2.9), Celeste Ca (8.78), BNP (1180) Meds Noted: Propofol (rate of 55.35mL/hr provides 1461kcal per day), Reglan, Albuterol, Pulmicort, Nimbex, Decadron, Fentanyl, Atrovent, Versed, Protonix Additional Notes: Documented blister on chin. No pressure sores. Will continue to monitor with same goal. Nutrition Monitoring and Evaluation: Follow up every Thursday/Thursday.
[2020-11-19] MEDS: MIDAZOLAM 100MG/NS 100ML(*CRX) 100 MG/100 ML BAG 8 MG IV CONT (11:05)
[2020-11-19 11:41] LABS: Glucose Point of Care 115 mg/dl (65-105)
--- NOTE | 2020-11-19 12:00 | PC.NURSE ---
Updated spouse on patient condition and potassium level and ventilator settings.
[2020-11-19] MEDS: CISATRACURIUM BESYLATE 200 MG in DEXTROSE 5% 80 ML 16.61 ML IV CONT (14:25)
--- NOTE | 2020-11-19 14:45 | WPDINTPN ---
Progress Note: A&P Assessment and Plan (1) Acute respiratory distress syndrome (ARDS) due to 2019 novel coronavirus: Code(s): U07.1 - COVID-19; J80 - Acute respiratory distress syndrome Status: Acute Assessment and Plan: Acute respiratory failure likely related to COVID pneumonia -11/14/2020 patient was on high-flow therapy and non-rebreather, desaturated, was placed on BiPAP 14/8 with O2 sats of 98-100% on 80% FiO2 -11/15/2020 earlier was patient had emesis on BiPAP, was tried on high-flow therapy with desaturations, patient was intubated on 11/15/2020 -chest x-ray and ABGs reviewed and shows persistent diffuse lung disease - advance ET tube -FiO2 weaned down to 70% on PEEP of 12 - patient has completed a 5 day course of azithromycin and ceftriaxone -continue bronchodilators and Pulmicort -currently chemically paralyzed with NMB infusion -daily 18 hours of prone ventilation as tolerated - Lasix IV today (2) Pneumonia due to 2019 novel coronavirus: Code(s): U07.1 - COVID-19; J12.82 - Pneumonia due to coronavirus disease 2019 Status: Acute Assessment and Plan: Patient has been tested positive for COVID-19 on 11/13/2020. Patient has not received his vaccine -11/13/2020 started on dexamethasone -11/13/2020 started on remdesivir -11/13/2020 received tocilizumab at the outside hospital -continue with droplet, airborne and contact isolation/precautions -inflammatory markers are elevated, will continue to trend (3) Asthma: Code(s): J45.909 - Unspecified asthma, uncomplicated Status: Acute Assessment and Plan: Continue bronchodilators Also on steroids (4) DVT prophylaxis: Code(s): Z29.9 - Encounter for prophylactic measures, unspecified Status: Acute Assessment and Plan: Continue Lovenox PPI for stress ulcer prophylaxis (5) Hypertension: Code(s): I10 - Essential (primary) hypertension Status: Acute Assessment and Plan: P.r.n. hydralazine (6) Electrolyte abnormality: Code(s): E87.8 - Other disorders of electrolyte and fluid balance, not elsewhere classified Status: Acute Assessment and Plan: potassium improved with Kayexalate (7) Atrial fibrillation with rapid ventricular response: Code(s): I48.91 - Unspecified atrial fibrillation Status: Acute Assessment and Plan: patient has converted to normal sinus rhythm and is now off of Cardizem infusion. continuep.r.n. IV Lopressor continue Lovenox attherapeutic anticoagulation dose. as patient's BMI is 52, dose will be adjusted to 0.75 milligram/kg q.12 hours continueaspirin Additional Plan Tube feeds as tolerated Add sliding scale insulin for glycemic control Code status full code Critical care time spent: 32 minutes This dictation may have been done utilizing a voice recognition system. Attempts have been made to correct errors. However, there may be uncorrected grammatical, spelling, and recognition errors present. Due to a high probability of clinically significant, life threatening deterioration, the patient required my highest level of preparedness to intervene emergently and I personally spent this critical care time directly and personally managing the patient. This critical care time included obtaining a history; examining the patient; pulse oximetry; ordering and review of studies; arranging urgent treatment with development of a management plan; evaluation of patient's response to treatment; frequent reassessment; and discussions with other providers. It was exclusive of separately billable procedures and treating other patients and teaching time. Please see Assessment and Plan section and the rest of the note for further information on patient assessment and treatment Subjective Date/time seen: 11/19/20 14:45 currently normal sinus rhythm afebrile was in prone position overnight on full PEEP a and 70% FiO2 sedated and on neuromuscul
[2020-11-19] MEDS: FUROSEMIDE INJ 40 MG/4 ML VIAL IV PUSH (15:09)
[2020-11-19 17:34] LABS: Glucose Point of Care 121 mg/dl (65-105)
[2020-11-19] MEDS: METOCLOPRAMIDE HCL 10 MG/10 ML SOLN UDC PO ×2 (18:40→23:57)
[2020-11-19] MEDS: DEXAMETHASONE SOD PHOS INJ 4 MG/ML VIAL 6 MG IV PUSH (20:26)
[2020-11-20] VITALS (62 sets, daily range): BP systolic 129–184; BP diastolic 72–90; PULSE 54–96; RESP 22–24; TEMP 36.4–37.2; O2SAT 88–99
[2020-11-20] MEDS: ALBUTEROL SULFATE NEB 2.5 MG/0.5 ML INH INHALATION ×4 (01:49→20:33)
[2020-11-20] MEDS: IPRATROPIUM BR 0.02% INH SOLN 0.5 MG/2.5 ML VIAL INHALATION ×4 (01:49→20:34)
[2020-11-20] MEDS: PROPOFOL IV EMULSION 100 ML 55.35 MG IV CONT ×3 (01:59→05:46)
[2020-11-20] MEDS: ENOXAPARIN 100 MG, ENOXAPARIN 40 MG 140 MG SUB-Q ×2 (02:01→14:11)
[2020-11-20] MEDS: CISATRACURIUM BESYLATE 200 MG in DEXTROSE 5% 80 ML 13.84 ML IV CONT (05:44)
[2020-11-20] MEDS: METOCLOPRAMIDE HCL 10 MG/10 ML SOLN UDC PO ×4 (05:47→23:15)
[2020-11-20] MEDS: CENTRAL LINE FLUSH 10 ML IV PUSH ×5 (05:47→20:07)
[2020-11-20] MEDS: FENTANYL 2,500MCG/NS250ML(*CRX 2,500 MCG/250 ML BAG 20 MCG IV CONT ×2 (06:25→19:59)
[2020-11-20 06:48] LABS: Base Excess ABG 5.8 mEq/l (+/-2.0); Carboxyhemoglobin 0.3 % THb (0-2.0); Fractional Inspired Oxygen 100 %; HCO3 ABG 33.5 mEq/l (22.0-26.0); Methemoglobin ABG 0.6 %THb (0-1.5); Oxygen Content ABG 20.7 %vol (16.0-22.0); Oxygen Saturation ABG 96.3 % (95.0-100.0); Oxyhemoglobin 95.4 % THb (90.0-100.0); PO2 ABG 89.1 mmHg (80.0-100.0); PO2 FiO2 Ratio Arterial Blood 0.89 %; Reduced Hemoglobin 3.7 %THb (0-5.0); Total Hemoglobin 15.4 g/dL (12.0-18.0); pH ABG 7.358 (7.350-7.450)
[2020-11-20 06:49] LABS: Device VENTILATOR; Modified Allen's Test Pass; PCO2 ABG 60.9 mmHg (35.0-45.0); Site Drawn LEFT RADIAL
[2020-11-20 06:50] LABS: Arterial Blood Gas Vent Mode CMV; Arterial Blood Gas Ventilator rate 22 /MIN
[2020-11-20 06:51] LABS: Arterial Blood Gas PEEP 12 cmH2O; Arterial Blood Gas Tidal Volume 450 ml
[2020-11-20 07:02] LABS: Glucose Point of Care 135 mg/dl (65-105)
[2020-11-20 07:02] LABS: Glucose Point of Care 143 mg/dl (65-105)
[2020-11-20 07:08] LABS: Hematocrit 45.8 % (42.0-52.0); Hemoglobin 14.3 g/dL (14.0-18.0); Mean Corpuscular HGB Conc 31.2 g/dl (32-36); Mean Corpuscular Volume 92.9 fl (80-100); Mean Platelet Volume 10.6 fl (7.4-10.4); Platelet Count Result 308 k/mm3 (150-375); Red Blood Count 4.93 M/mm3 (4.6-6.20); Red Cell Distribution Width 13.4 % (11.5-14.5)
[2020-11-20 07:30] LABS: Triglycerides 270 mg/dL (<150)
[2020-11-20 07:31] LABS: Alanine Aminotransferase 82 U/L (4-50); Albumin Level 2.9 g/dL (3.5-5.1); Alkaline Phosphatase 104 U/L (38-126); Anion Gap 5 mmol/L (8-16); Aspartate Amino Transferase 93 U/L (17-59); Bilirubin,Total 1.2 mg/dL (0.2-1.3); Blood Urea Nitrogen 37 mg/dL (9-20); Calcium 8.2 mg/dL (8.4-10.2); Carbon Dioxide 34 mmol/L (22-30); Chloride 98 mmol/L (98-107); Estimated CRCL calculation 149 ml/min; Estimated Glomerular Filt Rate > 60; Glucose 128 mg/dL (65-110); Magnesium 2.9 mg/dL (1.6-2.3); Potassium 4.8 mmol/L (3.4-5.0); Sodium 137 mmol/L (137-145)
[2020-11-20] MEDS: PROPOFOL IV EMULSION 100 ML 49.82 MG IV CONT ×8 (08:00→22:16)
[2020-11-20] MEDS: PANTOPRAZOLE SODIUM IV 40 MG VIAL IV PUSH (08:10)
[2020-11-20] MEDS: MINERAL OIL/WHITE PETROLATUM OINTMENT 1 APPLIC EACH EYE ×2 (08:10→20:07)
[2020-11-20] MEDS: ASPIRIN 325 MG TABLET FEED TUBE (08:10)
[2020-11-20] MEDS: FUROSEMIDE INJ 40 MG/4 ML VIAL IV PUSH ×2 (08:31→16:33)
[2020-11-20] MEDS: BUDESONIDE RESPULE NEB 0.5 MG/2 ML AMP INHALATION ×3 (09:27→20:34)
--- NOTE | 2020-11-20 10:34 | PCDIET ---
Nutrition Follow-Up Complete: Nutrition Diagnosis: Inadequate oral intake related to oral intubation as evidenced by NPO status. Nutrition Goal: Patient to meet estimated nutritional needs. Goal in progress. Patient receiving Vital 1.2 at 40mL/hr. Recommend keeping tube feedings at 40mL/hr due to increased Propofol rate. Given 22 hour daily infusion, this will provide 12kcal/kg with Propofol. Last recorded weight is 195.9 kg which is down from last review. +I/O. Bowel Motility: Last documented BM on 11/15/20. MD ordered Dulcolax prn. Labs Reviewed: WBC (16.0), Glu (128), BUN (37), Alb (2.9), Celeste Ca (9.08), TG (270) Meds Noted: Propofol (rate of 49.82mL/hr provides 1315kcal per day), Albuterol, Pulmicort, Nimbex, Decadron, Fentanyl, Lasix, Atrovent, Reglan, Lopressor, Versed, Protonix Additional Notes: Left chin blister. No pressure sores documented. Will continue to monitor with same goal. Nutrition Monitoring and Evaluation: Follow up every Thursday/Thursday.
--- NOTE | 2020-11-20 12:19 | WPDINTPN ---
Progress Note: A&P Assessment and Plan (1) Acute respiratory distress syndrome (ARDS) due to 2019 novel coronavirus: Code(s): U07.1 - COVID-19; J80 - Acute respiratory distress syndrome Status: Acute Assessment and Plan: Acute respiratory failure likely related to COVID pneumonia -11/14/2020 patient was on high-flow therapy and non-rebreather, desaturated, was placed on BiPAP 14/8 with O2 sats of 98-100% on 80% FiO2 -11/15/2020 earlier was patient had emesis on BiPAP, was tried on high-flow therapy with desaturations, patient was intubated on 11/15/2020 -chest x-ray reviewed and shows persistent diffuse lung disease - ABGs reviewed and permissive hypercapnia -FiO2 was at 70% on PEEP of 12. Saturations dropped when patient was put in supine and FiO2 had to be increased - patient has completed a 5 day course of azithromycin and ceftriaxone -continue bronchodilators and Pulmicort -currently chemically paralyzed with NMB infusion -daily 18 hours of prone ventilation as tolerated - continue Lasix IV today (2) Pneumonia due to 2019 novel coronavirus: Code(s): U07.1 - COVID-19; J12.82 - Pneumonia due to coronavirus disease 2019 Status: Acute Assessment and Plan: Patient has been tested positive for COVID-19 on 11/13/2020. Patient has not received his vaccine -11/13/2020 started on dexamethasone -11/13/2020 started on remdesivir -11/13/2020 received tocilizumab at the outside hospital -continue with droplet, airborne and contact isolation/precautions -inflammatory markers are elevated, will continue to trend (3) Asthma: Code(s): J45.909 - Unspecified asthma, uncomplicated Status: Acute Assessment and Plan: Continue bronchodilators Also on steroids (4) DVT prophylaxis: Code(s): Z29.9 - Encounter for prophylactic measures, unspecified Status: Acute Assessment and Plan: Continue Lovenox PPI for stress ulcer prophylaxis (5) Hypertension: Code(s): I10 - Essential (primary) hypertension Status: Acute Assessment and Plan: P.r.n. hydralazine (6) Atrial fibrillation with rapid ventricular response: Code(s): I48.91 - Unspecified atrial fibrillation Status: Acute Assessment and Plan: patient has converted to normal sinus rhythm and is now off of Cardizem infusion. continuep.r.n. IV Lopressor continue Lovenox attherapeutic anticoagulation dose. as patient's BMI is 52, dose will be adjusted to 0.75 milligram/kg q.12 hours continueaspirin (7) Hypertriglyceridemia: Code(s): E78.1 - Pure hyperglyceridemia Status: Acute Assessment and Plan: his triglyceride level was 2100 on 11/17 but this was likely in after from sample collection from propofol line repeat triglyceride level today is 270 continue to monitor patient is on low-dose propofol along with Versed and fentanyl Additional Plan Tube feeds as tolerated Add sliding scale insulin for glycemic control Code status full code Critical care time spent: 30 minutes This dictation may have been done utilizing a voice recognition system. Attempts have been made to correct errors. However, there may be uncorrected grammatical, spelling, and recognition errors present. Due to a high probability of clinically significant, life threatening deterioration, the patient required my highest level of preparedness to intervene emergently and I personally spent this critical care time directly and personally managing the patient. This critical care time included obtaining a history; examining the patient; pulse oximetry; ordering and review of studies; arranging urgent treatment with development of a management plan; evaluation of patient's response to treatment; frequent reassessment; and discussions with other providers. It was exclusive of separately billable procedures and treating other patients and teaching time. Please see Assessment and Plan section and the rest of the n
[2020-11-20] MEDS: MIDAZOLAM 100MG/NS 100ML(*CRX) 100 MG/100 ML BAG 8 MG IV CONT ×2 (12:20)
[2020-11-20] MEDS: CISATRACURIUM BESYLATE 200 MG in DEXTROSE 5% 80 ML 16.61 ML IV CONT ×2 (12:24→18:25)
[2020-11-20 12:25] LABS: Glucose Point of Care 118 mg/dl (65-105)
[2020-11-20] MEDS: BISACODYL 10 MG SUPPOSITORY RECTAL (12:31)
[2020-11-20 17:35] LABS: Glucose Point of Care 124 mg/dl (65-105)
[2020-11-20] MEDS: DEXAMETHASONE SOD PHOS INJ 4 MG/ML VIAL 6 MG IV PUSH (20:06)
[2020-11-20 23:23] LABS: Glucose Point of Care 131 mg/dl (65-105)
[2020-11-21] VITALS (47 sets, daily range): BP systolic 131–195; BP diastolic 79–95; PULSE 69–147; RESP 22–94; TEMP 36.4–37.4; O2SAT 24–98
[2020-11-21] MEDS: PROPOFOL IV EMULSION 100 ML 49.82 MG IV CONT ×11 (00:20→22:42)
[2020-11-21] MEDS: MIDAZOLAM 100MG/NS 100ML(*CRX) 100 MG/100 ML BAG 8 MG IV CONT ×2 (00:21→13:09)
[2020-11-21] MEDS: CISATRACURIUM BESYLATE 200 MG in DEXTROSE 5% 80 ML 16.61 ML IV CONT ×4 (00:22→19:25)
[2020-11-21] MEDS: ENOXAPARIN 100 MG, ENOXAPARIN 40 MG 140 MG SUB-Q ×2 (02:21→13:02)
[2020-11-21] MEDS: IPRATROPIUM BR 0.02% INH SOLN 0.5 MG/2.5 ML VIAL INHALATION ×4 (02:30→20:23)
[2020-11-21] MEDS: ALBUTEROL SULFATE NEB 2.5 MG/0.5 ML INH INHALATION ×4 (02:30→20:23)
[2020-11-21 04:11] LABS: Hematocrit 44.2 % (42.0-52.0); Hemoglobin 13.8 g/dL (14.0-18.0); Mean Corpuscular HGB Conc 31.2 g/dl (32-36); Mean Corpuscular Hemoglobin 29.1 pg (26-34); Mean Corpuscular Volume 93.2 fl (80-100); Mean Platelet Volume 10.4 fl (7.4-10.4); Platelet Count Result 314 k/mm3 (150-375); Red Blood Count 4.74 M/mm3 (4.6-6.20); Red Cell Distribution Width 13.5 % (11.5-14.5); White Blood Count 14.9 K/mm3 (4.5-10.0)
[2020-11-21 04:21] LABS: Alanine Aminotransferase 80 U/L (4-50); Albumin Level 2.7 g/dL (3.5-5.1); Alkaline Phosphatase 100 U/L (38-126); Anion Gap 3 mmol/L (8-16); Aspartate Amino Transferase 112 U/L (17-59); Bilirubin,Total 1.1 mg/dL (0.2-1.3); Blood Urea Nitrogen 41 mg/dL (9-20); Calcium 8.1 mg/dL (8.4-10.2); Carbon Dioxide 37 mmol/L (22-30); Chloride 98 mmol/L (98-107); Estimated CRCL calculation 149 ml/min; Estimated Glomerular Filt Rate > 60; Glucose 132 mg/dL (65-110); Magnesium 2.7 mg/dL (1.6-2.3); Potassium 4.9 mmol/L (3.4-5.0); Sodium 138 mmol/L (137-145)
[2020-11-21 04:29] LABS: Alveolar/Arterial O2 Gradient 381.1 mmHg; Base Excess ABG 6.4 mEq/l (+/-2.0); Carboxyhemoglobin 0.3 % THb (0-2.0); Fractional Inspired Oxygen 80 %; HCO3 ABG 34.4 mEq/l (22.0-26.0); Methemoglobin ABG 0.6 %THb (0-1.5); Oxygen Content ABG 20.4 %vol (16.0-22.0); Oxygen Saturation ABG 98.1 % (95.0-100.0); Oxyhemoglobin 96.8 % THb (90.0-100.0); PO2 ABG 121.9 mmHg (80.0-100.0); PO2 FiO2 Ratio Arterial Blood 1.52 %; Reduced Hemoglobin 2.3 %THb (0-5.0); Total Hemoglobin 14.9 g/dL (12.0-18.0); pH ABG 7.347 (7.350-7.450)
[2020-11-21 04:32] LABS: Device VENTILATOR; Modified Allen's Test Pass; PCO2 ABG 64.2 mmHg (35.0-45.0); Site Drawn LEFT RADIAL
[2020-11-21 04:34] LABS: Arterial Blood Gas PEEP 14 cmH2O; Arterial Blood Gas Tidal Volume 450 ml; Arterial Blood Gas Vent Mode CMV; Arterial Blood Gas Ventilator rate 22 /MIN
[2020-11-21] MEDS: CENTRAL LINE FLUSH 10 ML IV PUSH ×6 (06:11→20:43)
[2020-11-21] MEDS: METOCLOPRAMIDE HCL 10 MG/10 ML SOLN UDC PO ×3 (06:11→17:22)
[2020-11-21] MEDS: FENTANYL 2,500MCG/NS250ML(*CRX 2,500 MCG/250 ML BAG 20 MCG IV CONT ×2 (09:30→21:07)
[2020-11-21] MEDS: ASPIRIN 325 MG TABLET FEED TUBE (09:43)
[2020-11-21] MEDS: FUROSEMIDE INJ 40 MG/4 ML VIAL IV PUSH (09:43)
[2020-11-21] MEDS: MINERAL OIL/WHITE PETROLATUM OINTMENT 1 APPLIC EACH EYE ×2 (09:44→20:40)
[2020-11-21] MEDS: PANTOPRAZOLE SODIUM IV 40 MG VIAL IV PUSH (09:44)
--- NOTE | 2020-11-21 11:30 | PC.NURSE ---
Updated spouse on patient condition.
--- NOTE | 2020-11-21 11:57 | PCDIET ---
ICU Rounding Note: Patient tolerating Vital 1.2 at 40mL/hr with residuals 200mL and below. Recommend continuing present tube feeding. Last recorded weight is 195.9kg which is stable. Bowel Motility: Last BM on 11/15/20. adding Miralax. Dulcolax and Reglan continue. Labs Reviewed: WBC (14.9), Hgb (13.8), Glu (132), BUN (41), Alb (2.7), Celeste Ca (9.14), Mg (2.7) Meds Noted: Albuterol, Dulcolax, Decadron, Miralax, Atrovent, Reglan, Pulmicort, Nimbex, Fentanyl, Novolog, Versed, Protonix, Propofol (rate of 49.82mL/hr provides 1315kcal per day) Additional Notes: Skin tear on nose. Blister on chin. No pressure sores documented. Following daily in ICU rounds. Assessing/reassessing every Thursday/Thursday.
--- NOTE | 2020-11-21 13:58 | WPDINTPN ---
Progress Note: A&P Assessment and Plan (1) Acute respiratory distress syndrome (ARDS) due to 2019 novel coronavirus: Code(s): U07.1 - COVID-19; J80 - Acute respiratory distress syndrome Status: Acute Assessment and Plan: Acute respiratory failure likely related to COVID pneumonia -11/14/2020 patient was on high-flow therapy and non-rebreather, desaturated, was placed on BiPAP 14/8 with O2 sats of 98-100% on 80% FiO2 -11/15/2020 earlier was patient had emesis on BiPAP, was tried on high-flow therapy with desaturations, patient was intubated on 11/15/2020 -chest x-ray reviewed and shows persistent diffuse lung disease - ABGs reviewed and permissive hypercapnia - will increase rate to 24 in decrease PEEP to 12, - patient has completed a 5 day course of azithromycin and ceftriaxone -continue bronchodilators and Pulmicort -currently chemically paralyzed with NMB infusion -daily 18 hours of prone ventilation as tolerated (2) Pneumonia due to 2019 novel coronavirus: Code(s): U07.1 - COVID-19; J12.82 - Pneumonia due to coronavirus disease 2019 Status: Acute Assessment and Plan: Patient has been tested positive for COVID-19 on 11/13/2020. Patient has not received his vaccine -11/13/2020 started on dexamethasone -11/13/2020 started on remdesivir -11/13/2020 received tocilizumab at the outside hospital -continue with droplet, airborne and contact isolation/precautions -inflammatory markers are elevated, will continue to trend (3) Asthma: Code(s): J45.909 - Unspecified asthma, uncomplicated Status: Acute Assessment and Plan: Continue bronchodilators (4) DVT prophylaxis: Code(s): Z29.9 - Encounter for prophylactic measures, unspecified Status: Acute Assessment and Plan: Continue Lovenox PPI for stress ulcer prophylaxis (5) Hypertension: Code(s): I10 - Essential (primary) hypertension Status: Acute Assessment and Plan: P.r.n. hydralazine (6) Atrial fibrillation with rapid ventricular response: Code(s): I48.91 - Unspecified atrial fibrillation Status: Acute Assessment and Plan: patient has converted to normal sinus rhythm and is now off of Cardizem infusion. continuep.r.n. IV Lopressor continue Lovenox at therapeutic anticoagulation dose. as patient's BMI is 52, dose will be adjusted to 0.75 milligram/kg q.12 hours continueaspirin (7) Hypertriglyceridemia: Code(s): E78.1 - Pure hyperglyceridemia Status: Acute Assessment and Plan: his triglyceride level was 2100 on 11/17 but this was likely in after from sample collection from propofol line repeat triglyceride level today is 270 continue to monitor patient is on low-dose propofol along with Versed and fentanyl Additional Plan Tube feeds as tolerated Continue sliding scale insulin for glycemic control Code status full code Critical care time spent: 33 minutes This dictation may have been done utilizing a voice recognition system. Attempts have been made to correct errors. However, there may be uncorrected grammatical, spelling, and recognition errors present. Due to a high probability of clinically significant, life threatening deterioration, the patient required my highest level of preparedness to intervene emergently and I personally spent this critical care time directly and personally managing the patient. This critical care time included obtaining a history; examining the patient; pulse oximetry; ordering and review of studies; arranging urgent treatment with development of a management plan; evaluation of patient's response to treatment; frequent reassessment; and discussions with other providers. It was exclusive of separately billable procedures and treating other patients and teaching time. Please see Assessment and Plan section and the rest of the note for further information on patient assessment and treatment Subjective Date/time seen: 0
[2020-11-21] MEDS: hydrALAZINE HCL 20 MG/ML VIAL IV PUSH (18:32)
[2020-11-21 18:43] LABS: Glucose Point of Care 109 mg/dl (65-105)
[2020-11-21] MEDS: METOPROLOL TARTRATE INJ 5 MG/5 ML VIAL IV PUSH (19:24)
[2020-11-21] MEDS: BUDESONIDE RESPULE NEB 0.5 MG/2 ML AMP INHALATION (20:23)
[2020-11-21] MEDS: DEXAMETHASONE SOD PHOS INJ 4 MG/ML VIAL 6 MG IV PUSH (20:40)
[2020-11-21] MEDS: dilTIAZem HCl INJ 25 MG/5 ML VIAL 10 MG IV PUSH (20:50)
[2020-11-22] VITALS (71 sets, daily range): BP systolic 113–187; BP diastolic 62–94; PULSE 59–93; RESP 17–26; TEMP 36.7–37.5; O2SAT 87–96
[2020-11-22] MEDS: METOCLOPRAMIDE HCL 10 MG/10 ML SOLN UDC PO ×5 (00:20→23:00)
[2020-11-22] MEDS: PROPOFOL IV EMULSION 100 ML 49.82 MG IV CONT ×12 (00:24→22:59)
[2020-11-22] MEDS: CISATRACURIUM BESYLATE 200 MG in DEXTROSE 5% 80 ML 16.61 ML IV CONT ×2 (00:28→06:40)
[2020-11-22 01:13] LABS: Glucose Point of Care 150 mg/dl (65-105)
[2020-11-22] MEDS: MIDAZOLAM 100MG/NS 100ML(*CRX) 100 MG/100 ML BAG 8 MG IV CONT ×2 (01:16→15:43)
[2020-11-22] MEDS: ENOXAPARIN 100 MG, ENOXAPARIN 40 MG 140 MG SUB-Q ×2 (01:18→13:19)
[2020-11-22] MEDS: ALBUTEROL SULFATE NEB 2.5 MG/0.5 ML INH INHALATION ×4 (02:32→20:15)
[2020-11-22] MEDS: IPRATROPIUM BR 0.02% INH SOLN 0.5 MG/2.5 ML VIAL INHALATION ×4 (02:32→20:15)
[2020-11-22 06:00] LABS: Alveolar/Arterial O2 Gradient 388.2 mmHg; Base Excess ABG 9.3 mEq/l (+/-2.0); Carboxyhemoglobin 0.4 % THb (0-2.0); Fractional Inspired Oxygen 75 %; HCO3 ABG 38.1 mEq/l (22.0-26.0); Methemoglobin ABG 0.6 %THb (0-1.5); Oxygen Content ABG 20.4 %vol (16.0-22.0); Oxygen Saturation ABG 93.4 % (95.0-100.0); Oxyhemoglobin 93.1 % THb (90.0-100.0); PO2 ABG 72.5 mmHg (80.0-100.0); PO2 FiO2 Ratio Arterial Blood 0.97 %; Reduced Hemoglobin 5.9 %THb (0-5.0); Total Hemoglobin 15.6 g/dL (12.0-18.0); pH ABG 7.355 (7.350-7.450)
[2020-11-22 06:01] LABS: PCO2 ABG 69.7 mmHg (35.0-45.0)
[2020-11-22 06:02] LABS: Device VENTILATOR; Modified Allen's Test Pass; Site Drawn RIGHT RADIAL
[2020-11-22] MEDS: CENTRAL LINE FLUSH 10 ML IV PUSH ×5 (06:02→21:20)
[2020-11-22 06:03] LABS: Arterial Blood Gas PEEP 12 cmH2O; Arterial Blood Gas Tidal Volume 450 ml; Arterial Blood Gas Vent Mode CMV; Arterial Blood Gas Ventilator rate 24 /MIN
[2020-11-22 06:16] LABS: Hematocrit 40.8 % (42.0-52.0); Hemoglobin 13.7 g/dL (14.0-18.0); Mean Corpuscular HGB Conc 33.6 g/dl (32-36); Mean Corpuscular Volume 95.3 fl (80-100); Mean Platelet Volume 10.9 fl (7.4-10.4); Platelet Count Result 275 k/mm3 (150-375); Red Blood Count 4.28 M/mm3 (4.6-6.20); Red Cell Distribution Width 13.7 % (11.5-14.5); White Blood Count 16.5 K/mm3 (4.5-10.0)
[2020-11-22 06:34] LABS: Alanine Aminotransferase 71 U/L (4-50); Albumin Level 2.9 g/dL (3.5-5.1); Alkaline Phosphatase 78 U/L (38-126); Anion Gap 7 mmol/L (8-16); Aspartate Amino Transferase 130 U/L (17-59); Bilirubin,Total 1.5 mg/dL (0.2-1.3); Blood Urea Nitrogen 43 mg/dL (9-20); Calcium 6.7 mg/dL (8.4-10.2); Carbon Dioxide 29 mmol/L (22-30); Chloride 92 mmol/L (98-107); Estimated CRCL calculation 186 ml/min; Estimated Glomerular Filt Rate > 60; Glucose 118 mg/dL (65-110); Magnesium 2.7 mg/dL (1.6-2.3); Potassium 5.3 mmol/L (3.4-5.0); Sodium 128 mmol/L (137-145)
[2020-11-22] MEDS: MINERAL OIL/WHITE PETROLATUM OINTMENT 1 APPLIC EACH EYE ×2 (08:15→21:17)
[2020-11-22] MEDS: ASPIRIN 325 MG TABLET FEED TUBE (08:15)
[2020-11-22] MEDS: PANTOPRAZOLE SODIUM IV 40 MG VIAL IV PUSH (08:15)
[2020-11-22] MEDS: polyethylene glycoL 3350 17 GM POWD.PACK PO (08:39)
[2020-11-22] MEDS: FENTANYL 2,500MCG/NS250ML(*CRX 2,500 MCG/250 ML BAG 20 MCG IV CONT ×2 (10:03→22:57)
[2020-11-22] MEDS: METOPROLOL TARTRATE 25 MG TABLET PO ×2 (11:16→21:17)
[2020-11-22] MEDS: amLODIPine BESYLATE 5 MG TABLET PO (11:16)
--- NOTE | 2020-11-22 11:23 | PCDIET ---
ICU Rounding Note: Patient tolerating Vital 1.2 at 40mL/hr with 30mL water flush every 4 hours. Last recorded weight is 192.9kg which is down from last review. +I/O. Will monitor. Bowel Motility: Last documented BM on 11/15/20. Patient has orders for Reglan and Miralax with Dulcolax prn. Labs Reviewed: WBC (16.5), RBC (4.28), Hgb (13.7), Hct (40.8), BUN (43), K (5.3), Na (128), Alb (2.9), Celeste Ca (7.58), Mg (2.7) Meds Noted: Albuterol, Fentanyl, Versed, Pulmicort, Atrovent, Protonix, Nimbex, Reglan, Miralax, Decadron, Lopressor, Propofol (rate of 49.82mL/hr provides 1315kcal per day) Additional Notes: Wounds on face from proning. No other skin issues reported. If potassium becomes further elevated, may need to consider change in formula. Recommend replacing calcium and continuing with Dulcolax prn. Following daily in ICU rounds. Assessing/reassessing every Thursday/Thursday.
--- NOTE | 2020-11-22 12:14 | WPDINTPN ---
Progress Note: A&P Assessment and Plan (1) Acute respiratory distress syndrome (ARDS) due to 2019 novel coronavirus: Code(s): U07.1 - COVID-19; J80 - Acute respiratory distress syndrome Status: Acute Assessment and Plan: Acute respiratory failure likely related to COVID pneumonia -11/14/2020 patient was on high-flow therapy and non-rebreather, desaturated, was placed on BiPAP 14/8 with O2 sats of 98-100% on 80% FiO2 -11/15/2020 earlier was patient had emesis on BiPAP, was tried on high-flow therapy with desaturations, patient was intubated on 11/15/2020 - chest x-ray reviewed and shows persistent diffuse lung disease - ABGs reviewed and permissive hypercapnia - PEEP of 12 and FIO2 of 75%, - patient has completed a 5 day course of azithromycin and ceftriaxone -continue bronchodilators and Pulmicort -currently chemically paralyzed with NMB infusion -daily 18 hours of prone ventilation as tolerated (2) Pneumonia due to 2019 novel coronavirus: Code(s): U07.1 - COVID-19; J12.82 - Pneumonia due to coronavirus disease 2019 Status: Acute Assessment and Plan: Patient has been tested positive for COVID-19 on 11/13/2020. Patient has not received his vaccine -11/13/2020 started on dexamethasone -11/13/2020 started on remdesivir -11/13/2020 received tocilizumab at the outside hospital -continue with droplet, airborne and contact isolation/precautions -inflammatory markers are elevated, will continue to trend (3) Asthma: Code(s): J45.909 - Unspecified asthma, uncomplicated Status: Acute Assessment and Plan: Continue bronchodilators (4) Hypertension: Code(s): I10 - Essential (primary) hypertension Status: Acute Assessment and Plan: P.r.n. hydralazine started Amlodipine and metoprolol (5) Atrial fibrillation with rapid ventricular response: Code(s): I48.91 - Unspecified atrial fibrillation Status: Acute Assessment and Plan: patient has converted to normal sinus rhythm and is now off of Cardizem infusion. continuep.r.n. IV Lopressor continue Lovenox at therapeutic anticoagulation dose. as patient's BMI is 52, dose will be adjusted to 0.75 milligram/kg q.12 hours continue aspirin Started on metoprolol (6) Hypertriglyceridemia: Code(s): E78.1 - Pure hyperglyceridemia Status: Acute Assessment and Plan: his triglyceride level was 2100 on 11/17 but this was likely in after from sample collection from propofol line repeat triglyceride level today is 270 continue to monitor patient is on low-dose propofol along with Versed and fentanyl (7) DVT prophylaxis: Code(s): Z29.9 - Encounter for prophylactic measures, unspecified Status: Acute Assessment and Plan: Continue Lovenox PPI for stress ulcer prophylaxis Additional Plan Tube feeds as tolerated Continue sliding scale insulin for glycemic control Code status full code Critical care time spent: 33 minutes This dictation may have been done utilizing a voice recognition system. Attempts have been made to correct errors. However, there may be uncorrected grammatical, spelling, and recognition errors present. Due to a high probability of clinically significant, life threatening deterioration, the patient required my highest level of preparedness to intervene emergently and I personally spent this critical care time directly and personally managing the patient. This critical care time included obtaining a history; examining the patient; pulse oximetry; ordering and review of studies; arranging urgent treatment with development of a management plan; evaluation of patient's response to treatment; frequent reassessment; and discussions with other providers. It was exclusive of separately billable procedures and treating other patients and teaching time. Please see Assessment and Plan section and the rest of the note for further information on patient assessment and t
[2020-11-22 12:22] LABS: Glucose Point of Care 128 mg/dl (65-105)
[2020-11-22] MEDS: CISATRACURIUM BESYLATE 200 MG in DEXTROSE 5% 80 ML 19.37 ML IV CONT ×3 (13:12→22:56)
[2020-11-22 17:25] LABS: Glucose Point of Care 134 mg/dl (65-105)
[2020-11-22] MEDS: BUDESONIDE RESPULE NEB 0.5 MG/2 ML AMP INHALATION (20:15)
[2020-11-22] MEDS: DEXAMETHASONE SOD PHOS INJ 4 MG/ML VIAL 6 MG IV PUSH (21:16)
[2020-11-23] VITALS (44 sets, daily range): BP systolic 118–154; BP diastolic 70–99; PULSE 78–141; RESP 24–26; TEMP 37.1–37.4; O2SAT 91–96
[2020-11-23 00:08] LABS: Glucose Point of Care 131 mg/dl (65-105)
[2020-11-23] MEDS: PROPOFOL IV EMULSION 100 ML 49.82 MG IV CONT ×4 (01:08→09:00)
[2020-11-23] MEDS: ENOXAPARIN 100 MG, ENOXAPARIN 40 MG 140 MG SUB-Q ×2 (01:08→16:00)
[2020-11-23] MEDS: MIDAZOLAM 100MG/NS 100ML(*CRX) 100 MG/100 ML BAG 8 MG IV CONT ×2 (01:09→16:15)
[2020-11-23] MEDS: IPRATROPIUM BR 0.02% INH SOLN 0.5 MG/2.5 ML VIAL INHALATION ×4 (02:05→20:44)
[2020-11-23] MEDS: ALBUTEROL SULFATE NEB 2.5 MG/0.5 ML INH INHALATION ×2 (02:05→09:25)
[2020-11-23] MEDS: CISATRACURIUM BESYLATE 200 MG in DEXTROSE 5% 80 ML 19.37 ML IV CONT ×4 (04:06→20:39)
[2020-11-23 04:53] LABS: Base Excess ABG 11.3 mEq/l (+/-2.0); Carboxyhemoglobin 0.4 % THb (0-2.0); Device VENTILATOR; Fractional Inspired Oxygen 80 %; HCO3 ABG 37.8 mEq/l (22.0-26.0); Methemoglobin ABG 0.4 %THb (0-1.5); Modified Allen's Test Unable to perform; Oxygen Content ABG 20.2 %vol (16.0-22.0); Oxygen Saturation ABG 93.7 % (95.0-100.0); Oxyhemoglobin 93.2 % THb (90.0-100.0); PCO2 ABG 56.3 mmHg (35.0-45.0); PO2 ABG 67.3 mmHg (80.0-100.0); PO2 FiO2 Ratio Arterial Blood 0.84 %; Site Drawn LEFT RADIAL; Total Hemoglobin 15.4 g/dL (12.0-18.0); pH ABG 7.445 (7.350-7.450)
[2020-11-23 04:54] LABS: Arterial Blood Gas PEEP 12 cmH2O; Arterial Blood Gas Tidal Volume 450 ml; Arterial Blood Gas Vent Mode CMV; Arterial Blood Gas Ventilator rate 24 /MIN
[2020-11-23] MEDS: CENTRAL LINE FLUSH 10 ML IV PUSH ×6 (05:34→20:50)
[2020-11-23] MEDS: METOCLOPRAMIDE HCL 10 MG/10 ML SOLN UDC PO ×4 (05:39→23:39)
[2020-11-23 06:07] LABS: Hematocrit 42.2 % (42.0-52.0); Hemoglobin 13.3 g/dL (14.0-18.0); Mean Corpuscular HGB Conc 31.5 g/dl (32-36); Mean Corpuscular Hemoglobin 29.8 pg (26-34); Mean Corpuscular Volume 94.6 fl (80-100); Mean Platelet Volume 11.2 fl (7.4-10.4); Platelet Count Result 278 k/mm3 (150-375); Red Blood Count 4.46 M/mm3 (4.6-6.20); Red Cell Distribution Width 13.6 % (11.5-14.5); White Blood Count 20.5 K/mm3 (4.5-10.0)
[2020-11-23 07:17] LABS: Alanine Aminotransferase 68 U/L (4-50); Alkaline Phosphatase 118 U/L (38-126); Anion Gap 4 mmol/L (8-16); Aspartate Amino Transferase 138 U/L (17-59); Bilirubin,Total 1.2 mg/dL (0.2-1.3); Blood Urea Nitrogen 55 mg/dL (9-20); Carbon Dioxide 34 mmol/L (22-30); Chloride 96 mmol/L (98-107); Estimated CRCL calculation 166 ml/min; Estimated Glomerular Filt Rate > 60; Glucose 131 mg/dL (65-110); Magnesium 3.2 mg/dL (1.6-2.3); Potassium 4.8 mmol/L (3.4-5.0); Sodium 134 mmol/L (137-145)
[2020-11-23 07:58] LABS: Triglycerides 1222 mg/dL (<150)
[2020-11-23] MEDS: METOPROLOL TARTRATE 25 MG TABLET PO (09:06)
[2020-11-23] MEDS: polyethylene glycoL 3350 17 GM POWD.PACK PO (09:10)
[2020-11-23] MEDS: ASPIRIN 325 MG TABLET FEED TUBE (09:14)
[2020-11-23] MEDS: PANTOPRAZOLE SODIUM IV 40 MG VIAL IV PUSH (09:15)
[2020-11-23] MEDS: amLODIPine BESYLATE 5 MG TABLET PO ×2 (09:15→12:11)
[2020-11-23] MEDS: MINERAL OIL/WHITE PETROLATUM OINTMENT 1 APPLIC EACH EYE ×2 (09:15→20:53)
[2020-11-23] MEDS: BUDESONIDE RESPULE NEB 0.5 MG/2 ML AMP INHALATION ×2 (09:25→20:44)
[2020-11-23] MEDS: FUROSEMIDE INJ 40 MG/4 ML VIAL IV PUSH (09:40)
[2020-11-23] MEDS: PROPOFOL IV EMULSION 100 ML 55.35 MG IV CONT ×8 (11:00→23:29)
--- NOTE | 2020-11-23 11:41 | PCDIET ---
Nutrition Follow-Up Complete: Nutrition Diagnosis: Inadequate oral intake related to oral intubation as evidenced by NPO status. Nutrition Goal: Patient to meet estimated nutritional needs. Goal in progress. Patient tolerating Vital 1.2 AF at 40mL/hr with 30mL water flush every 4 hours. Recommend decreasing Vital 1.2 AF to 30mL/hr and adding Pro-Stat flush TID to provide 1092kcal (2407kcal with Propofol at current rate) and 95 grams protein, given tube feeding infusion over 22 hours/day. Recommend continuing 30mL water flush every 4 hours. Recommend daily Dulcolax until patient has BM. Last recorded weight is 196.4 kg which is increased from last review. +I/O. Bowel Motility: Last documented BM on 11/15/20. Patient has orders for Reglan, Miralax, and Dulcolax (prn). Labs Reviewed: WBC (20.5), RBC (4.46), Hct (13.3), Glu (131), BUN (55), Na (134), Alb (3.0), Celeste Ca (8.8), Mg (3.2) Meds Noted: Propofol (rate of 49.82mL/hr provides 1315kcal per day), Albuterol, Norvasc, Pulmicort, Dulcolax, Nimbex, Cardizem, Fentanyl, Novolog, Atrovent, Reglan, Lopressor, Versed, Protonix, Miralax, Lasix Additional Notes: Left chin blister and skin tear on nose from proning. Will continue to monitor with same goal. Nutrition Monitoring and Evaluation: Follow up every Thursday/Thursday.
--- NOTE | 2020-11-23 12:32 | WPDINTPN ---
Progress Note: A&P Assessment and Plan (1) Acute respiratory distress syndrome (ARDS) due to 2019 novel coronavirus: Code(s): U07.1 - COVID-19; J80 - Acute respiratory distress syndrome Status: Acute Assessment and Plan: Acute respiratory failure likely related to COVID pneumonia -11/14/2020 patient was on high-flow therapy and non-rebreather, desaturated, was placed on BiPAP 14/8 with O2 sats of 98-100% on 80% FiO2 -11/15/2020 earlier was patient had emesis on BiPAP, was tried on high-flow therapy with desaturations, patient was intubated on 11/15/2020 - chest x-ray reviewed and shows persistent diffuse lung disease - ABGs reviewed and permissive hypercapnia - PEEP of 12 and FIO2 of 80%, - patient has completed a 5 day course of azithromycin and ceftriaxone -continue bronchodilators and Pulmicort -currently chemically paralyzed with NMB infusion -daily 18 hours of prone ventilation as tolerated (2) Pneumonia due to 2019 novel coronavirus: Code(s): U07.1 - COVID-19; J12.82 - Pneumonia due to coronavirus disease 2019 Status: Acute Assessment and Plan: Patient has been tested positive for COVID-19 on 11/13/2020. Patient has not received his vaccine -11/13/2020 started on dexamethasone -11/13/2020 started on remdesivir -11/13/2020 received tocilizumab at the outside hospital -continue with droplet, airborne and contact isolation/precautions -inflammatory markers are elevated, will continue to trend (3) Asthma: Code(s): J45.909 - Unspecified asthma, uncomplicated Status: Acute Assessment and Plan: Continue bronchodilators (4) Hypertension: Code(s): I10 - Essential (primary) hypertension Status: Acute Assessment and Plan: P.r.n. hydralazine started Amlodipine and metoprolol (5) Atrial fibrillation with rapid ventricular response: Code(s): I48.91 - Unspecified atrial fibrillation Status: Acute Assessment and Plan: Patient has been going in an out of AFib every other day, requiring Cardizem infusion intermittently continue Lovenox at therapeutic anticoagulation dose. as patient's BMI is 52, dose will be adjusted to 0.75 milligram/kg q.12 hours continue aspirin - Will increase metoprolol (6) Hypertriglyceridemia: Code(s): E78.1 - Pure hyperglyceridemia Status: Acute Assessment and Plan: his triglyceride level was 2100 on 11/17 but this was likely in after from sample collection from propofol line repeat triglyceride level today is 270 continue to monitor patient is on low-dose propofol along with Versed and fentanyl (7) DVT prophylaxis: Code(s): Z29.9 - Encounter for prophylactic measures, unspecified Status: Acute Assessment and Plan: Continue Lovenox PPI for stress ulcer prophylaxis Additional Plan Tube feeds as tolerated Continue sliding scale insulin for glycemic control Discussed with Olinda, patient's and updated with his condition and plan of care. I answered all questions Code status full code Critical care time spent: 33 minutes This dictation may have been done utilizing a voice recognition system. Attempts have been made to correct errors. However, there may be uncorrected grammatical, spelling, and recognition errors present. Due to a high probability of clinically significant, life threatening deterioration, the patient required my highest level of preparedness to intervene emergently and I personally spent this critical care time directly and personally managing the patient. This critical care time included obtaining a history; examining the patient; pulse oximetry; ordering and review of studies; arranging urgent treatment with development of a management plan; evaluation of patient's response to treatment; frequent reassessment; and discussions with other providers. It was exclusive of separately billable procedures and treating other patients and teaching time. Glendy
[2020-11-23] MEDS: FENTANYL 2,500MCG/NS250ML(*CRX 2,500 MCG/250 ML BAG 20 MCG IV CONT (13:08)
[2020-11-23 13:44] LABS: Triglycerides 346 mg/dL (<150)
[2020-11-23] MEDS: LEVALBUTEROL NEB 1.25 MG/3 ML 0.63 MG INHALATION ×2 (14:19→20:44)
[2020-11-23 20:31] LABS: Glucose Point of Care 127 mg/dl (65-105)
[2020-11-23] MEDS: METOPROLOL TARTRATE 50 MG TAB PO (20:50)
[2020-11-24] VITALS (32 sets, daily range): BP systolic 91–142; BP diastolic 55–81; PULSE 80–142; RESP 24–28; TEMP 37.4–38.2; O2SAT 80–93
[2020-11-24 00:41] LABS: Glucose Point of Care 135 mg/dl (65-105)
[2020-11-24] MEDS: IPRATROPIUM BR 0.02% INH SOLN 0.5 MG/2.5 ML VIAL INHALATION ×4 (01:05→21:03)
[2020-11-24] MEDS: LEVALBUTEROL NEB 1.25 MG/3 ML 0.63 MG INHALATION ×4 (01:05→21:03)
[2020-11-24] MEDS: PROPOFOL IV EMULSION 100 ML 55.35 MG IV CONT ×13 (01:18→23:20)
[2020-11-24] MEDS: FENTANYL 2,500MCG/NS250ML(*CRX 2,500 MCG/250 ML BAG 20 MCG IV CONT ×2 (01:38→14:19)
[2020-11-24] MEDS: CISATRACURIUM BESYLATE 200 MG in DEXTROSE 5% 80 ML 24.91 ML IV CONT ×6 (01:44→21:30)
[2020-11-24] MEDS: ENOXAPARIN 100 MG, ENOXAPARIN 40 MG 140 MG SUB-Q ×2 (01:46→13:33)
[2020-11-24] MEDS: MIDAZOLAM 100MG/NS 100ML(*CRX) 100 MG/100 ML BAG 8 MG IV CONT ×2 (03:14→14:21)
[2020-11-24 04:19] LABS: Alveolar/Arterial O2 Gradient 560.1 mmHg; Base Excess ABG 10.4 mEq/l (+/-2.0); Carboxyhemoglobin 0.5 % THb (0-2.0); Fractional Inspired Oxygen 100 %; HCO3 ABG 40.3 mEq/l (22.0-26.0); Methemoglobin ABG 0.6 %THb (0-1.5); Oxygen Content ABG 18.4 %vol (16.0-22.0); Oxygen Saturation ABG 91.9 % (95.0-100.0); Oxyhemoglobin 92.3 % THb (90.0-100.0); PO2 ABG 71.1 mmHg (80.0-100.0); PO2 FiO2 Ratio Arterial Blood 0.71 %; Reduced Hemoglobin 6.6 %THb (0-5.0); Total Hemoglobin 14.2 g/dL (12.0-18.0)
[2020-11-24 04:20] LABS: Device VENTILATOR; Modified Allen's Test Pass; PCO2 ABG 81.8 mmHg (35.0-45.0); Site Drawn RIGHT RADIAL
[2020-11-24 04:21] LABS: Arterial Blood Gas PEEP 12 cmH2O; Arterial Blood Gas Tidal Volume 450 ml; Arterial Blood Gas Vent Mode CMV; Arterial Blood Gas Ventilator rate 24 /MIN
[2020-11-24] MEDS: ACETAMINOPHEN 325 MG TABLET 650 MG PO ×2 (05:17→14:24)
[2020-11-24] MEDS: CENTRAL LINE FLUSH 10 ML IV PUSH ×6 (05:19→21:34)
[2020-11-24] MEDS: METOCLOPRAMIDE HCL 10 MG/10 ML SOLN UDC PO ×3 (05:20→17:17)
[2020-11-24 06:10] LABS: Hematocrit 44.3 % (42.0-52.0); Hemoglobin 13.1 g/dL (14.0-18.0); Mean Corpuscular HGB Conc 29.6 g/dl (32-36); Mean Corpuscular Hemoglobin 28.2 pg (26-34); Mean Corpuscular Volume 95.3 fl (80-100); Mean Platelet Volume 11.4 fl (7.4-10.4); Platelet Count Result 310 k/mm3 (150-375); Red Blood Count 4.65 M/mm3 (4.6-6.20); Red Cell Distribution Width 13.6 % (11.5-14.5); White Blood Count 20.9 K/mm3 (4.5-10.0)
[2020-11-24 06:35] LABS: Alanine Aminotransferase 71 U/L (4-50); Albumin Level 3.1 g/dL (3.5-5.1); Alkaline Phosphatase 123 U/L (38-126); Anion Gap 5 mmol/L (8-16); Aspartate Amino Transferase 175 U/L (17-59); Bilirubin,Total 2.4 mg/dL (0.2-1.3); Blood Urea Nitrogen 66 mg/dL (9-20); Calcium 8.5 mg/dL (8.4-10.2); Carbon Dioxide 38 mmol/L (22-30); Chloride 95 mmol/L (98-107); Estimated CRCL calculation 112 ml/min; Estimated Glomerular Filt Rate > 60; Glucose 122 mg/dL (65-110); Magnesium 3.2 mg/dL (1.6-2.3); Potassium 5.3 mmol/L (3.4-5.0); Sodium 138 mmol/L (137-145)
[2020-11-24] MEDS: BUDESONIDE RESPULE NEB 0.5 MG/2 ML AMP INHALATION ×2 (08:58→21:03)
[2020-11-24] MEDS: ASPIRIN 325 MG TABLET FEED TUBE (09:27)
[2020-11-24] MEDS: amLODIPine BESYLATE 5 MG TABLET 10 MG PO (09:27)
[2020-11-24] MEDS: polyethylene glycoL 3350 17 GM POWD.PACK PO (09:27)
[2020-11-24] MEDS: MINERAL OIL/WHITE PETROLATUM OINTMENT 1 APPLIC EACH EYE ×2 (09:28→19:41)
[2020-11-24] MEDS: METOPROLOL TARTRATE 50 MG TAB PO ×2 (09:28→21:33)
[2020-11-24] MEDS: PANTOPRAZOLE SODIUM IV 40 MG VIAL IV PUSH (09:28)
[2020-11-24] MEDS: dilTIAZem HCl INJ 25 MG/5 ML VIAL 10 MG IV PUSH (10:42)
--- NOTE | 2020-11-24 11:59 | WPDINTPN ---
Progress Note: A&P Assessment and Plan (1) Acute respiratory distress syndrome (ARDS) due to 2019 novel coronavirus: Code(s): U07.1 - COVID-19; J80 - Acute respiratory distress syndrome Status: Acute Assessment and Plan: Acute respiratory failure likely related to COVID pneumonia -11/14/2020 patient was on high-flow therapy and non-rebreather, desaturated, was placed on BiPAP 14/8 with O2 sats of 98-100% on 80% FiO2 -11/15/2020 earlier was patient had emesis on BiPAP, was tried on high-flow therapy with desaturations, patient was intubated on 11/15/2020 - chest x-ray reviewed and shows persistent diffuse lung disease - ABGs reviewed and permissive hypercapnia - PEEP of 12 and FIO2 of 100%,, increase PEEP to 16 as patient is decent - patient has completed a 5 day course of azithromycin and ceftriaxone -continue bronchodilators and Pulmicort -currently chemically paralyzed with NMB infusion -daily 18 hours of prone ventilation as tolerated (2) Pneumonia due to 2019 novel coronavirus: Code(s): U07.1 - COVID-19; J12.82 - Pneumonia due to coronavirus disease 2019 Status: Acute Assessment and Plan: Patient has been tested positive for COVID-19 on 11/13/2020. Patient has not received his vaccine -11/13/2020 started on dexamethasone -11/13/2020 started on remdesivir -11/13/2020 received tocilizumab at the outside hospital -continue with droplet, airborne and contact isolation/precautions -inflammatory markers are elevated, will continue to trend (3) Asthma: Code(s): J45.909 - Unspecified asthma, uncomplicated Status: Acute Assessment and Plan: Continue bronchodilators (4) Hypertension: Code(s): I10 - Essential (primary) hypertension Status: Acute Assessment and Plan: P.r.n. hydralazine started Amlodipine and metoprolol (5) Atrial fibrillation with rapid ventricular response: Code(s): I48.91 - Unspecified atrial fibrillation Status: Acute Assessment and Plan: Patient has been going in an out of AFib every other day, requiring Cardizem infusion intermittently continue Lovenox at therapeutic anticoagulation dose. as patient's BMI is 52, dose will be adjusted to 0.75 milligram/kg q.12 hours continue aspirin -continue Cardizem drip -continue metoprolol per tube (6) Hypertriglyceridemia: Code(s): E78.1 - Pure hyperglyceridemia Status: Acute Assessment and Plan: his triglyceride level was 2100 on 11/17 but this was likely in after from sample collection from propofol line Triglycerides elevated at 346. Likely secondary to propofol, will start weaning propofol increased Versed and fentanyl. Patient also on Nimbex continue to monitor patient is on low-dose propofol along with Versed and fentanyl (7) DVT prophylaxis: Code(s): Z29.9 - Encounter for prophylactic measures, unspecified Status: Acute Assessment and Plan: Continue Lovenox PPI for stress ulcer prophylaxis Additional Plan Tube feeds as tolerated Continue sliding scale insulin for glycemic control Code status full code Critical care time spent: 33 minutes This dictation may have been done utilizing a voice recognition system. Attempts have been made to correct errors. However, there may be uncorrected grammatical, spelling, and recognition errors present. Due to a high probability of clinically significant, life threatening deterioration, the patient required my highest level of preparedness to intervene emergently and I personally spent this critical care time directly and personally managing the patient. This critical care time included obtaining a history; examining the patient; pulse oximetry; ordering and review of studies; arranging urgent treatment with development of a management plan; evaluation of patient's response to treatment; frequent reassessment; and discussions with other providers. It was exclusive of separately billable pr
[2020-11-24 12:57] LABS: Glucose Point of Care 110 mg/dl (65-105)
[2020-11-24 17:28] LABS: Glucose Point of Care 103 mg/dl (65-105)
[2020-11-25] VITALS (39 sets, daily range): BP systolic 83–131; BP diastolic 46–66; PULSE 67–124; RESP 28; TEMP 36.1–37.4; O2SAT 90–95
[2020-11-25] MEDS: METOCLOPRAMIDE HCL 10 MG/10 ML SOLN UDC PO ×4 (00:34→17:28)
[2020-11-25] MEDS: PROPOFOL IV EMULSION 100 ML 55.35 MG IV CONT ×13 (01:09→22:45)
[2020-11-25] MEDS: CISATRACURIUM BESYLATE 200 MG in DEXTROSE 5% 80 ML 24.91 ML IV CONT ×6 (01:31→22:42)
[2020-11-25] MEDS: MIDAZOLAM 100MG/NS 100ML(*CRX) 100 MG/100 ML BAG 8 MG IV CONT ×2 (02:30→16:23)
[2020-11-25] MEDS: ENOXAPARIN 100 MG, ENOXAPARIN 40 MG 140 MG SUB-Q ×2 (02:30→13:59)
[2020-11-25 02:51] LABS: Glucose Point of Care 114 mg/dl (65-105)
[2020-11-25] MEDS: FENTANYL 2,500MCG/NS250ML(*CRX 2,500 MCG/250 ML BAG 20 MCG IV CONT ×2 (03:44→16:34)
[2020-11-25 05:02] LABS: Alveolar/Arterial O2 Gradient 483.6 mmHg; Base Excess ABG 6.3 mEq/l (+/-2.0); Carboxyhemoglobin 0.3 % THb (0-2.0); Fractional Inspired Oxygen 90 %; Methemoglobin ABG 0.4 %THb (0-1.5); Oxygen Content ABG 16.4 %vol (16.0-22.0); Oxygen Saturation ABG 92.1 % (95.0-100.0); Oxyhemoglobin 93.1 % THb (90.0-100.0); PO2 ABG 74.6 mmHg (80.0-100.0); PO2 FiO2 Ratio Arterial Blood 0.83 %; Reduced Hemoglobin 6.2 %THb (0-5.0); Total Hemoglobin 12.5 g/dL (12.0-18.0)
[2020-11-25 05:04] LABS: pH ABG 7.263 (7.350-7.450)
[2020-11-25 05:05] LABS: Device VENTILATOR; Modified Allen's Test Pass; PCO2 ABG 81.5 mmHg (35.0-45.0); Site Drawn LEFT RADIAL
[2020-11-25 05:06] LABS: Arterial Blood Gas PEEP 16 cmH2O; Arterial Blood Gas Tidal Volume 450 ml; Arterial Blood Gas Vent Mode CMV; Arterial Blood Gas Ventilator rate 28 /MIN
[2020-11-25] MEDS: CENTRAL LINE FLUSH 20 ML IV PUSH (05:42)
[2020-11-25] MEDS: CENTRAL LINE FLUSH 10 ML IV PUSH ×4 (05:43→19:45)
--- NOTE | 2020-11-25 07:29 | PM.IMPN ---
Progress Note: A&P Assessment and Plan (1) Acute respiratory distress syndrome (ARDS) due to 2019 novel coronavirus: Code(s): U07.1 - COVID-19; J80 - Acute respiratory distress syndrome Status: Acute Assessment and Plan: Acute respiratory failure likely related to COVID pneumonia with acute lung injury/ARDS. He was initially started on high-flow oxygen but was placed on BiPAP for worsening hypoxia. He was intubated on 11/15 because of worsening oxygenation status and having an episode of vomiting while he was on BiPAP. Continue mechanical ventilation with current settings. ARDS network protocol will be followed for low tidal volume strategies to prevent barotrauma. Follow chest x-ray and ABG. Wean PEEP and FiO2 if tolerated. - patient has completed a 5 day course of azithromycin and ceftriaxone -continue bronchodilators and Pulmicort -currently chemically paralyzed with NMB infusion -daily 18 hours of prone ventilation as tolerated Sedation as per ICU team. Currently sedated with propofol fentanyl and Versed. He is not a candidate for daily sedation vacation trial. (2) Pneumonia due to 2019 novel coronavirus: Code(s): U07.1 - COVID-19; J12.82 - Pneumonia due to coronavirus disease 2019 Status: Acute Assessment and Plan: Patient has been tested positive for COVID-19 on 11/13/2020. He was unvaccinated. -11/13/2020 started on dexamethasone and seems to have completed the dose for 10 days. -11/13/2020 started on remdesivir and completed the dose of. -11/13/2020 received tocilizumab at the outside hospital -continue with droplet, airborne and contact isolation/precautions -inflammatory markers are elevated, will continue to trend (3) Asthma: Code(s): J45.909 - Unspecified asthma, uncomplicated Status: Acute Assessment and Plan: Continue bronchodilators (4) Hypertension: Code(s): I10 - Essential (primary) hypertension Status: Acute Assessment and Plan: P.r.n. hydralazine Hold amlodipine and metoprolol. He is currently hypotensive. Cardizem drip has been stopped as well. (5) Atrial fibrillation with rapid ventricular response: Code(s): I48.91 - Unspecified atrial fibrillation Status: Acute Assessment and Plan: Patient has been going in an out of AFib. Amiodarone drip has been started as he is hypotensive and Cardizem drip has been stopped. continue Lovenox at therapeutic anticoagulation dose. as patient's BMI is 52, dose will be adjusted to 0.75 milligram/kg q.12 hours. continue aspirin (6) Hypertriglyceridemia: Code(s): E78.1 - Pure hyperglyceridemia Status: Acute Assessment and Plan: his triglyceride level was 2100 on 11/17 but this was likely in after from sample collection from propofol line Triglycerides elevated at 346. Propofol is being weaned off. He will be continued on fentanyl and Versed. He is still requiring low-dose propofol. Patient also on Nimbex continue to monitor (7) DVT prophylaxis: Code(s): Z29.9 - Encounter for prophylactic measures, unspecified Status: Acute Assessment and Plan: Continue Lovenox PPI for stress ulcer prophylaxis Additional Plan Tube feeds as tolerated Continue sliding scale insulin for glycemic control Code status full code ICU team has been talking to the family and updated them about his clinical and respiratory status. He will likely have poor outcome. His family wants to continue all the care currently. Subjective Date/time seen: 11/25/20 07:29 He remained on mechanical ventilation and requiring a PEEP of 16 and 90% FiO2 He was placed in supine position at around 8:00 a.m. today. He was hypotensive. He is currently on Cardizem drip at a rate of 20. He is sedated with propofol fentanyl and Versed. He is paralyzed with Nimbex. Review of Systems Review of Systems: ROS unobtainable: Yes unobta
[2020-11-25] MEDS: IPRATROPIUM BR 0.02% INH SOLN 0.5 MG/2.5 ML VIAL INHALATION ×2 (08:16→21:05)
[2020-11-25] MEDS: BUDESONIDE RESPULE NEB 0.5 MG/2 ML AMP INHALATION ×2 (08:17→21:05)
[2020-11-25] MEDS: LEVALBUTEROL NEB 1.25 MG/3 ML 0.63 MG INHALATION ×2 (08:17→21:05)
[2020-11-25 09:06] LABS: Anion Gap 9 mmol/L (8-16); Blood Urea Nitrogen 101 mg/dL (9-20); Carbon Dioxide 33 mmol/L (22-30); Chloride 87 mmol/L (98-107); Glucose 103 mg/dL (65-110); Potassium 6.3 mmol/L (3.4-5.0); Sodium 129 mmol/L (137-145)
[2020-11-25] MEDS: PANTOPRAZOLE SODIUM IV 40 MG VIAL IV PUSH (09:07)
[2020-11-25] MEDS: ASPIRIN 325 MG TABLET FEED TUBE (09:08)
[2020-11-25] MEDS: MINERAL OIL/WHITE PETROLATUM OINTMENT 1 APPLIC EACH EYE ×2 (09:08→19:45)
[2020-11-25 09:19] LABS: Estimated CRCL calculation 38 ml/min; Estimated Glomerular Filt Rate 17
[2020-11-25] MEDS: SODIUM CHLORIDE 0.9% IV 500 ML IV CONT ×3 (09:47→17:29)
[2020-11-25 10:20] LABS: Hematocrit 35.4 % (42.0-52.0); Hemoglobin 11.5 g/dL (14.0-18.0); Mean Corpuscular HGB Conc 32.5 g/dl (32-36); Mean Corpuscular Hemoglobin 32.6 pg (26-34); Mean Corpuscular Volume 100.3 fl (80-100); Mean Platelet Volume 12.9 fl (7.4-10.4); Platelet Count Result 237 k/mm3 (150-375); Red Blood Count 3.53 M/mm3 (4.6-6.20); Red Cell Distribution Width 13.4 % (11.5-14.5); White Blood Count 24.2 K/mm3 (4.5-10.0)
[2020-11-25] MEDS: AMIODARONE 150 MG/D5W 100 ML 150 MG/100 ML BAG 600 MG IV CONT (10:25)
[2020-11-25] MEDS: AMIODARONE 360 MG/D5W 200 ML 360 MG/200 ML BAG 33.33 MG IV CONT (10:26)
[2020-11-25] MEDS: NOREPINEPHRINE 8 MG/D5W 250 ML 8 MG/250 ML BAG 9.38 MG IV CONT (10:45)
[2020-11-25] MEDS: SODIUM BICARBONATE 8.4% 50 MEQ/50 ML SYRINGE 100 MEQ IV PUSH (12:02)
[2020-11-25] MEDS: DEXTROSE 50% 25 GM/50 ML SYRINGE IV PUSH (12:02)
[2020-11-25] MEDS: INSULIN HUMAN REGULAR (*BKC) 100 UNITS/ML 10 UNITS IV PUSH (12:03)
[2020-11-25] MEDS: SODIUM POLYSTYRENE SULFONONATE 15 GM/60 ML BTL 30 GM PO (12:03)
[2020-11-25] MEDS: polyethylene glycoL 3350 17 GM POWD.PACK PO (12:04)
[2020-11-25 14:20] LABS: Lactic Acid Reflex 2.6 mmol/L (0.7-2.1)
[2020-11-25 14:23] LABS: Anion Gap 12 mmol/L (8-16); Blood Urea Nitrogen 105 mg/dL (9-20); Calcium 7.5 mg/dL (8.4-10.2); Carbon Dioxide 32 mmol/L (22-30); Chloride 87 mmol/L (98-107); Glucose 132 mg/dL (65-110); Potassium 5.3 mmol/L (3.4-5.0); Sodium 131 mmol/L (137-145)
--- NOTE | 2020-11-25 14:36 | WPDINTPN ---
Progress Note: A&P Assessment and Plan (1) Shock: Code(s): R57.9 - Shock, unspecified Status: Acute Assessment and Plan: Likely septic given elevated lactic acid, leukocytosis, febrile -obtain blood, urine, sputum cultures -started on cefepime and vancomycin -patient is given 1 L of IV fluid bolus, caution was taken due to bilateral diffuse infiltrates due to COVID pneumonia -started on Levophed, will maintain MAP > 70 mmHg for adequate end organ perfusion (2) Acute respiratory distress syndrome (ARDS) due to 2019 novel coronavirus: Code(s): U07.1 - COVID-19; J80 - Acute respiratory distress syndrome Status: Acute Assessment and Plan: Acute respiratory failure likely related to COVID pneumonia -11/14/2020 patient was on high-flow therapy and non-rebreather, desaturated, was placed on BiPAP 17/11 with O2 sats of 98-100% on 80% FiO2 -11/15/2020 earlier was patient had emesis on BiPAP, was tried on high-flow therapy with desaturations, patient was intubated on 11/15/2020 - chest x-ray reviewed and shows persistent diffuse lung disease - ABGs reviewed and permissive hypercapnia - PEEP of 12 and FIO2 of 90%,, increase PEEP to 16 as patient is decent - patient has completed a 5 day course of azithromycin and ceftriaxone -continue bronchodilators and Pulmicort -currently chemically paralyzed with NMB infusion -daily 18 hours of prone ventilation as tolerated (3) Pneumonia due to 2019 novel coronavirus: Code(s): U07.1 - COVID-19; J12.82 - Pneumonia due to coronavirus disease 2019 Status: Acute Assessment and Plan: Patient has been tested positive for COVID-19 on 11/13/2020. Patient has not received his vaccine -11/13/2020 started on dexamethasone -11/13/2020 started on remdesivir -11/13/2020 received tocilizumab at the outside hospital -continue with droplet, airborne and contact isolation/precautions -inflammatory markers are elevated, will continue to trend (4) Asthma: Code(s): J45.909 - Unspecified asthma, uncomplicated Status: Acute Assessment and Plan: Continue bronchodilators (5) Hypertension: Code(s): I10 - Essential (primary) hypertension Status: Acute Assessment and Plan: P.r.n. hydralazine started Amlodipine and metoprolol (6) Atrial fibrillation with rapid ventricular response: Code(s): I48.91 - Unspecified atrial fibrillation Status: Acute Assessment and Plan: Patient has been going in an out of AFib every other day, requiring Cardizem infusion intermittently continue Lovenox at therapeutic anticoagulation dose. as patient's BMI is 52, dose will be adjusted to 0.75 milligram/kg q.12 hours continue aspirin -continue Cardizem drip -continue metoprolol per tube (7) Hypertriglyceridemia: Code(s): E78.1 - Pure hyperglyceridemia Status: Acute Assessment and Plan: his triglyceride level was 2100 on 11/17 but this was likely in after from sample collection from propofol line Triglycerides elevated at 346. Likely secondary to propofol, will start weaning propofol increased Versed and fentanyl. Patient also on Nimbex continue to monitor patient is on low-dose propofol along with Versed and fentanyl (8) DVT prophylaxis: Code(s): Z29.9 - Encounter for prophylactic measures, unspecified Status: Acute Assessment and Plan: Continue Lovenox PPI for stress ulcer prophylaxis Additional Plan Tube feeds as tolerated Continue sliding scale insulin for glycemic control Discussed with Mr. Jayson Renny, the had requested asked to call him updated with patient's condition and plan of care. Jayson, is retired respiratory therapist, I answered all his questions and concerns. He stated that white heavy not transfer the patient to an outside back facility for ECMO. I did mention that he is BMI is significantly high and [facility] are not accepting patients BMI of 53.
[2020-11-25 14:40] LABS: Estimated CRCL calculation 32 ml/min; Estimated Glomerular Filt Rate 14
--- NOTE | 2020-11-25 15:23 | PM.CNNEP ---
Assessment and Plan Assessment and plan (1) Acute renal failure: Code(s): N17.9 - Acute kidney failure, unspecified Status: Acute Assessment and Plan: The patient has acute kidney injury. His baseline creatinine is normal. It seemed to start when his blood pressure dropped. I suspect that this is from a combination of hypotension and inflammation from the COVID-19. Right now his urine output is low and his urine is brown so it is likely ATN. His blood pressure is better now with the Levophed. Other causes include obstruction, rhabdomyolysis, glomerulonephritis, interstitial nephritis. The latter 2 are less likely in this clinical scenario. Will check a renal ultrasound, urine electrolytes, and a CK. (2) Shock: Code(s): R57.9 - Shock, unspecified Status: Acute Assessment and Plan: The patient's blood pressure dropped over the last couple of days. He is on supportive care and his blood pressure is better right now. He cultures have been done. He is on vancomycin plus cefepime. With shock plus hyperkalemia and hyponatremia will check a cortisol level. (3) Acute respiratory distress syndrome (ARDS) due to 2019 novel coronavirus: Code(s): U07.1 - COVID-19; J80 - Acute respiratory distress syndrome Status: Acute Assessment and Plan: The patient has COVID-19. He is getting supportive care. (4) Atrial fibrillation with rapid ventricular response: Code(s): I48.91 - Unspecified atrial fibrillation Status: Acute Assessment and Plan: Is he is in sinus rhythm right now with a pulse in the 70s. He is on amiodarone. He does go in and out of AFib requiring Cardizem drip for rate control during his episodes (5) Hypertension: Code(s): I10 - Essential (primary) hypertension Status: Acute Assessment and Plan: Patient has underlying hypertension. Antihypertensives have been held of course because of the hypotension (6) Hyperkalemia: Code(s): E87.5 - Hyperkalemia Status: Acute Assessment and Plan: His potassium was high. He received Kayexalate, insulin, glucose, and bicarbonate. He is not getting any potassium supplements. Possibly there was an endogenous source such as rhabdo or hemolysis. Will check a CK and also haptoglobin. (7) Hyponatremia: Code(s): E87.1 - Hypo-osmolality and hyponatremia Status: Acute Assessment and Plan: Sodium level is low. Most likely related to his renal failure and blood pressure issues. He is also getting lots of free water in his drips which are obligatory because of his illness. Will keep an eye on the sodium. We can try to put is many drips in saline is possible, but will wait on this for now. If the sodium continues to drop then consider other measures to keep the sodium up. I fear giving too much salt because of his respiratory failure. (8) Respiratory acidosis: Code(s): E87.2 - Acidosis Status: Acute Assessment and Plan: The patient has respiratory acidosis due to his illness. He does have a metabolic compensation already. History of Present Illness Reason for Consult Consult date: 11/25/20 Chief Complaint Chief complaint: covid + History of Present Illness Narrative: Evaristo is an unfortunate 55-year-old gentleman who has multiple medical problems including asthma, morbid obesity, osteoarthritis who now has COVID-19 pneumonia. The patient was admitted [facility] on the in transfer from [facility]. The patient has been in the intensive care unit and intubated. He received Dexamethasone and remdesivir. Received is a through mycin and ceftriaxone as well. He is getting pulmonary toilet bronchodilators. He is chemically paralyzed and on sedatives. He has been doing 18hours of prone ventilation daily as tolerated as well. Yesterday the patient's blood pressure is low. He was given some IV fluids and improved. Today's blood pressure was
[2020-11-25 16:13] LABS: Reflex Lactic Acid Yes or No Add Lactic
[2020-11-25 16:46] LABS: Creatine Kinase 1047 U/L (55-170)
[2020-11-25 17:33] LABS: Add Urine Microscopic? YES; Amorphous Sediment Urine Heavy; Appearance Urine Turbid (Clear); Bilirubin Urine Negative (Negative); Blood Urine 2+ (Negative); Color Urine Red (Yellow); Glucose Urine UA 1+ mg/dL (Negative); Ketones Urine Negative (Negative); Leukocyte Esterase Ur Negative LEU/UL (NEGATIVE); Nitrate Urine Positive (Negative); Protein Urine 2+ mg/dL (Negative); RBC Urine >75 /hpf (0-2); Squamous Epithelial Cell Urine Many /hpf (Few); WBC Urine 0-3 /hpf (0-3)
[2020-11-25 17:49] LABS: Eosinophil Urine None Seen % (None Seen)
[2020-11-25 17:56] LABS: Glucose Point of Care 119 mg/dl (65-105)
[2020-11-25 17:56] LABS: Glucose Point of Care 113 mg/dl (65-105)
[2020-11-25 17:56] LABS: Glucose Point of Care 154 mg/dl (65-105)
[2020-11-25 18:01] LABS: Creatinine Urine 79.9 mg/dL
[2020-11-25 18:07] LABS: Potassium Urine Random 51.7 meq/L; Sodium Urine Random 43 meq/L
[2020-11-25 18:08] LABS: Creatinine Urine 78.5 mg/dL; Total Protein Urine Random 179 mg/dL; Ur Ttl Prot Creatinine Ratio 2.28 mg/mg (0-0.20)
[2020-11-25 18:18] LABS: Sodium Urine Random 43 meq/L
[2020-11-26] VITALS (40 sets, daily range): BP systolic 93–128; BP diastolic 49–67; PULSE 82–108; RESP 28; TEMP 36.4–37.7; O2SAT 88–97
[2020-11-26] MEDS: PROPOFOL IV EMULSION 100 ML 55.35 MG IV CONT ×5 (00:45→07:30)
[2020-11-26] MEDS: METOCLOPRAMIDE HCL 10 MG/10 ML SOLN UDC PO ×5 (01:01→23:06)
[2020-11-26] MEDS: ENOXAPARIN 100 MG, ENOXAPARIN 40 MG 140 MG SUB-Q ×2 (01:02→14:48)
[2020-11-26] MEDS: LEVALBUTEROL NEB 1.25 MG/3 ML 0.63 MG INHALATION ×2 (02:12→09:00)
[2020-11-26] MEDS: IPRATROPIUM BR 0.02% INH SOLN 0.5 MG/2.5 ML VIAL INHALATION ×2 (02:12→09:00)
[2020-11-26] MEDS: CISATRACURIUM BESYLATE 200 MG in DEXTROSE 5% 80 ML 24.91 ML IV CONT ×6 (02:33→23:00)
[2020-11-26] MEDS: MIDAZOLAM 100MG/NS 100ML(*CRX) 100 MG/100 ML BAG 8 MG IV CONT (03:22)
[2020-11-26 05:24] LABS: Alveolar/Arterial O2 Gradient 483.2 mmHg; Carboxyhemoglobin 0.3 % THb (0-2.0); Fractional Inspired Oxygen 90 %; HCO3 ABG 31.6 mEq/l (22.0-26.0); Methemoglobin ABG 0.5 %THb (0-1.5); Oxygen Content ABG 16.2 %vol (16.0-22.0); Oxygen Saturation ABG 96.4 % (95.0-100.0); Oxyhemoglobin 95.5 % THb (90.0-100.0); PO2 ABG 93.8 mmHg (80.0-100.0); PO2 FiO2 Ratio Arterial Blood 1.04 %; Reduced Hemoglobin 3.7 %THb (0-5.0); pH ABG 7.318 (7.350-7.450)
[2020-11-26 05:27] LABS: PCO2 ABG 63.1 mmHg (35.0-45.0)
[2020-11-26] MEDS: FENTANYL 2,500MCG/NS250ML(*CRX 2,500 MCG/250 ML BAG 20 MCG IV CONT ×2 (05:27→18:54)
[2020-11-26 05:28] LABS: Device VENTILATOR; Modified Allen's Test Unable to perform; Site Drawn LEFT RADIAL
[2020-11-26 05:29] LABS: Arterial Blood Gas PEEP 16 cmH2O; Arterial Blood Gas Tidal Volume 500 ml; Arterial Blood Gas Vent Mode CMV; Arterial Blood Gas Ventilator rate 28 /MIN
[2020-11-26 06:22] LABS: Hematocrit 33.7 % (42.0-52.0); Hemoglobin 10.7 g/dL (14.0-18.0); Mean Corpuscular HGB Conc 31.8 g/dl (32-36); Mean Corpuscular Hemoglobin 29.6 pg (26-34); Mean Corpuscular Volume 93.4 fl (80-100); Mean Platelet Volume 11.1 fl (7.4-10.4); Platelet Count Result 248 k/mm3 (150-375); Red Blood Count 3.61 M/mm3 (4.6-6.20); Red Cell Distribution Width 14.1 % (11.5-14.5); White Blood Count 27.4 K/mm3 (4.5-10.0)
[2020-11-26] MEDS: CENTRAL LINE FLUSH 10 ML IV PUSH ×6 (06:43→20:33)
[2020-11-26 06:58] LABS: Lactic Acid Reflex 1.4 mmol/L (0.7-2.1)
[2020-11-26 07:10] LABS: Alanine Aminotransferase 63 U/L (4-50); Albumin Level 2.9 g/dL (3.5-5.1); Alkaline Phosphatase 132 U/L (38-126); Anion Gap 10 mmol/L (8-16); Aspartate Amino Transferase 203 U/L (17-59); Bilirubin,Total 4.3 mg/dL (0.2-1.3); Calcium 7.2 mg/dL (8.4-10.2); Carbon Dioxide 31 mmol/L (22-30); Chloride 89 mmol/L (98-107); Creatine Kinase 913 U/L (55-170); Glucose 97 mg/dL (65-110); Lipase 370 U/L (23-300); Magnesium 3.1 mg/dL (1.6-2.3); Phosphorus 8.6 mg/dL (2.5-4.5); Potassium 6.3 mmol/L (3.4-5.0); Sodium 130 mmol/L (137-145); Triglycerides 435 mg/dL (<150)
[2020-11-26 07:47] LABS: Glucose Point of Care 95 mg/dl (65-105)
[2020-11-26 08:00] LABS: Estimated CRCL calculation 31 ml/min; Estimated Glomerular Filt Rate 14
[2020-11-26 08:02] LABS: Blood Urea Nitrogen 124 mg/dL (9-20)
[2020-11-26] MEDS: INSULIN HUMAN REGULAR (*BKC) 100 UNITS/ML 10 UNITS IV PUSH ×2 (08:59→19:56)
[2020-11-26] MEDS: BUDESONIDE RESPULE NEB 0.5 MG/2 ML AMP INHALATION (09:00)
[2020-11-26] MEDS: DEXTROSE 50% 25 GM/50 ML SYRINGE IV PUSH ×2 (09:03→19:55)
[2020-11-26] MEDS: CALCIUM CHLOR 1,000MG/100ML NS 1,000 MG/100 ML BAG 100 MG IVPB (09:03)
[2020-11-26] MEDS: SODIUM POLYSTYRENE SULFONONATE 15 GM/60 ML BTL 30 GM PO (09:13)
--- NOTE | 2020-11-26 10:42 | PCDIET ---
ICU Rounding Note: Patient receiving Vital 1.2 at 30mL/hr with 30mL water flush every 4 hours and Pro-Stat flush TID. Discussed with MD recommendation for Nepro at 20mL/hr at this time. Last recorded weight is 191.9kg which is down from last review. +I/O. Urine output 450mL on 11/25/20. Bowel Motility: Last documented BM on 11/15/20. Patient receiving Reglan, Miralax and Kayexalate. Could consider adding another medication, if medically appropriate. Labs Reviewed: WBC (27.4), RBC (3.61), Hgb (10.7), Hct (33.7), BUN (124), Cr (4.5), K (6.3), Na (130), Cl (89), Ca (7.2), PO4 (8.6), Mg (3.1), TG (435), Lipase (370) Meds Noted: Atrovent, Xopenex, Vancomycin, Pulmicort, Calcium Chloride, Maxipime, Nimbex, Fentanyl, Kayexalate, Reglan, Versed, Levophed, Protonix, Miralax Additional Notes: MD stopped Propofol. Will recommend advancing tube feeding if aggressive measures are continued. Maceration to penis and facial breakdown documented. Following daily in ICU rounds. Assessing/reassessing every Thursday/Thursday.
[2020-11-26] MEDS: PANTOPRAZOLE SODIUM IV 40 MG VIAL IV PUSH (11:58)
[2020-11-26] MEDS: MINERAL OIL/WHITE PETROLATUM OINTMENT 1 APPLIC EACH EYE ×2 (11:59→20:33)
[2020-11-26] MEDS: ASPIRIN 325 MG TABLET FEED TUBE (11:59)
[2020-11-26] MEDS: polyethylene glycoL 3350 17 GM POWD.PACK PO (12:00)
--- NOTE | 2020-11-26 12:05 | WPDINTPN ---
Progress Note: A&P Assessment and Plan (1) Shock: Code(s): R57.9 - Shock, unspecified Status: Acute Assessment and Plan: Likely septic given elevated lactic acid, leukocytosis, febrile -pending blood, urine, sputum cultures -started on cefepime and vancomycin -patient is given 1 L of IV fluid bolus, caution was taken due to bilateral diffuse infiltrates due to COVID pneumonia -started on Levophed, will maintain MAP > 70 mmHg for adequate end organ perfusion. Levophed is currently off (2) Acute respiratory distress syndrome (ARDS) due to 2019 novel coronavirus: Code(s): U07.1 - COVID-19; J80 - Acute respiratory distress syndrome Status: Acute Assessment and Plan: Acute respiratory failure likely related to COVID pneumonia -11/14/2020 patient was on high-flow therapy and non-rebreather, desaturated, was placed on BiPAP 17/11 with O2 sats of 98-100% on 80% FiO2 -11/15/2020 earlier was patient had emesis on BiPAP, was tried on high-flow therapy with desaturations, patient was intubated on 11/15/2020 - chest x-ray reviewed and shows persistent diffuse lung disease - ABGs reviewed and permissive hypercapnia - PEEP of 16 and FIO2 of 90%,, - patient has completed a 5 day course of azithromycin and ceftriaxone -continue bronchodilators and Pulmicort -currently chemically paralyzed with NMB infusion -daily 18 hours of prone ventilation as tolerated (3) Pneumonia due to 2019 novel coronavirus: Code(s): U07.1 - COVID-19; J12.82 - Pneumonia due to coronavirus disease 2019 Status: Acute Assessment and Plan: Patient has been tested positive for COVID-19 on 11/13/2020. Patient has not received his vaccine -11/13/2020 started on dexamethasone - course complete -11/13/2020 started on remdesivir - course complete -11/13/2020 received tocilizumab at the outside hospital -continue with droplet, airborne and contact isolation/precautions -inflammatory markers are elevated, will continue to trend (4) Asthma: Code(s): J45.909 - Unspecified asthma, uncomplicated Status: Acute Assessment and Plan: Continue bronchodilators (5) Hypertension: Code(s): I10 - Essential (primary) hypertension Status: Acute Assessment and Plan: P.r.n. hydralazine started Amlodipine and metoprolol (6) Atrial fibrillation with rapid ventricular response: Code(s): I48.91 - Unspecified atrial fibrillation Status: Acute Assessment and Plan: Patient has been going in an out of AFib every other day, requiring Cardizem infusion intermittently continue Lovenox at therapeutic anticoagulation dose. as patient's BMI is 52, dose will be adjusted to 0.75 milligram/kg q.12 hours continue aspirin Currently in NSR (7) Hypertriglyceridemia: Code(s): E78.1 - Pure hyperglyceridemia Status: Acute Assessment and Plan: his triglyceride level was 2100 on 11/17 but this was likely in after from sample collection from propofol line Triglycerides still elevated Will continue propofol and use Versed and fentanyl. Patient also on Nimbex. May need to and Precedex continue to monitor (8) DVT prophylaxis: Code(s): Z29.9 - Encounter for prophylactic measures, unspecified Status: Acute Assessment and Plan: Continue Lovenox PPI for stress ulcer prophylaxis (9) Acute renal failure: Code(s): N17.9 - Acute kidney failure, unspecified Status: Acute Assessment and Plan: Patient has developed acute kidney injury with increasing creatinine Patient was seen by Nephrology and suspect ATN Patient also has mild rhabdomyolysis with CK level in 900s Renal ultrasound was negative Patient will likely need hemodialysis. Will discuss with Dr. Pryor (10) Hyperkalemia: Code(s): E87.5 - Hyperkalemia Status: Acute Assessment and Plan: Potassium 6.3 this morning Kayexalate, insulin and D50, calcium was given Additional
[2020-11-26 12:54] LABS: Glucose Point of Care 95 mg/dl (65-105)
--- NOTE | 2020-11-26 14:00 | WPDPROCEDUR ---
Procedures Central Line Placement Right IJ: Central Line Date: 11/26/20 Central Line Time: 13:00 Discussed w/ the patient/family/POA,the placement of a central venous catheter, including its clinical necessity/indication & associated potential risks, benifits and alternatives.: Yes The patient/family/POA understand(s) and acknowledge(s) the need to proceed with central venous catheter insertion as an important element of the patient's clinical management.: Yes Consent: Verbal consent obtaine by phone from pt's Time Out Performed: Yes Patient Position: supine Patient placed on monitor/pulse ox: Yes Provider Prep: mask, sterile gown, sterile gloves, Max. sterile barrier precautions, cap and hand hygiene with conventional soap/water or alcohol based hand rub Central line prep: 2% Chlorhexidine scrub Sterile US Technique with sterile gel/sterile probe covers: Yes Central line lumen inserted: triple [place]: 12 Length (cm): 16 Depth of Insertion (cm): 16 Post Procedure: sutured in place, good blood return, all ports aspirated, flushed, capped and transparent dressing Post procedure x-ray: tip of catheter in good position and no pneumothorax seen Patient tolerated procedure: well and no complications Complications: none
--- NOTE | 2020-11-26 14:06 | PM.EVENT ---
Event Note Event Note Event Note: Discussed with Dr. Henry. He agrees with starting hemodialysis. Patient's agreeable and consented for hemodialysis and hemodialysis catheter insertion after explanation of risks and benefits. Hemodialysis catheter placed. Nephrology will order dialysis.
[2020-11-26] MEDS: MIDAZOLAM 100MG/NS 100ML(*CRX) 100 MG/100 ML BAG 10 MG IV CONT (14:45)
[2020-11-26 14:47] LABS: Anion Gap 13 mmol/L (8-16); Calcium 7.5 mg/dL (8.4-10.2); Carbon Dioxide 30 mmol/L (22-30); Chloride 84 mmol/L (98-107); Glucose 101 mg/dL (65-110); Potassium 6.2 mmol/L (3.4-5.0); Sodium 127 mmol/L (137-145)
[2020-11-26 14:48] LABS: Blood Urea Nitrogen 128 mg/dL (9-20)
[2020-11-26 15:36] LABS: Estimated CRCL calculation 28 ml/min; Estimated Glomerular Filt Rate 12
--- NOTE | 2020-11-26 15:37 | P.PNNP_ITS ---
Progress Note: A&P Assessment and Plan (1) Acute renal failure: Code(s): N17.9 - Acute kidney failure, unspecified Status: Acute Assessment and Plan: * due to hemodynamic instability/hypotension and COVID-19 infection leading to ATN * urine output dropping associated with rising BUN and hyperkalemia * I thinks we need to start dialysis as I suspect his uremic burden and hyperkalemai will worsen before it gets better * HD catheter in place and to receive dialysis soon * continue supportive therapy. (2) Shock: Code(s): R57.9 - Shock, unspecified Status: Acute Assessment and Plan: * doing a bit better at this time * weaned off vasopressors * on broad spectrum antibiotics * follow culture data * monitor trend of hemodynamics (3) Acute respiratory distress syndrome (ARDS) due to 2019 novel coronavirus: Code(s): U07.1 - COVID-19; J80 - Acute respiratory distress syndrome Status: Acute Assessment and Plan: * on full ventilator support * since admission, has completed course of dexamethok, remdesivir, and dosed with tocilzumab * isolation precautions * follow inflammatory markers (4) Atrial fibrillation with rapid ventricular response: Code(s): I48.91 - Unspecified atrial fibrillation Status: Acute Assessment and Plan: * precipitated by acute illness * continue rate-control strategy * follow telementery (5) Hyperkalemia: Code(s): E87.5 - Hyperkalemia Status: Acute Assessment and Plan: * received more medical management * dialysis should help correct this issues * follow repeat levels (6) Hyponatremia: Code(s): E87.1 - Hypo-osmolality and hyponatremia Status: Acute Assessment and Plan: * due to renal failure and hypotension * free water in drips, IV medications...etc probably not helping * dialysis should help correct Subjective Date/time seen: 11/26/20 15:37 Chart reviewed - assuming care from Dr. Pryor; renal function continues to deteriorate now associated with hyperkalemia; off pressors and remains hemodynamically stable but remains sedated/paralyzed on mechanical ventilation. Exam Narrative: General: WD/WN male sedated/paralyzed on ventilator Heart: normal S1 and S2; no rub Lungs: coarse breath sounds throughout Abdomen: soft, nontender, nondistended, positive bowel sounds Extremities: no cyanosis or clubbing; trace edema Skin: warm and dry Objective Data Vital Signs Vital Signs: Vital Signs Temp Pulse Resp BP Pulse Ox 11/26/20 14:45 93 28 H 11/26/20 14:34 93 28 H 11/26/20 14:00 36.8 C 89 28 H 111/65 90 11/26/20 13:58 89 28 H 91 11/26/20 12:00 36.6 C 88 28 H 123/67 90 11/26/20 11:31 84 92 11/26/20 10:00 36.4 C L 103 H 28 H 128/66 92 11/26/20 09:48 82 28 H 11/26/20 09:20 86 28 H 11/26/20 09:00 82 93 11/26/20 08:00 36.9 C 93 28 H 100/50 L 91 11/26/20 07:30 93 28 H 11/26/20 06:00 37.2 C 94 28 H 109/49 L 96 11/26/20 05:50 97 28 H 11/26/20 05:27 97 28 H 11/26/20 04:01 99 28 H 11/26/20 04:00 37.4 C 101 H 28 H 118/55 L 96 11/26/20 03:22 100 28 H 11/26/20 02:34 101 H 28 H 11/26/20 02:22 101 H 96 11/26/20 02:16 10
--- NOTE | 2020-11-26 15:37 | PM.PNNEP ---
Progress Note: A&P Assessment and Plan (1) Acute renal failure: Code(s): N17.9 - Acute kidney failure, unspecified Status: Acute Assessment and Plan: due to hemodynamic instability/hypotension and COVID-19 infection leading to ATN urine output dropping associated with rising BUN and hyperkalemia I thinks we need to start dialysis as I suspect his uremic burden and hyperkalemai will worsen before it gets better HD catheter in place and to receive dialysis soon continue supportive therapy. (2) Shock: Code(s): R57.9 - Shock, unspecified Status: Acute Assessment and Plan: doing a bit better at this time weaned off vasopressors on broad spectrum antibiotics follow culture data monitor trend of hemodynamics (3) Acute respiratory distress syndrome (ARDS) due to 2019 novel coronavirus: Code(s): U07.1 - COVID-19; J80 - Acute respiratory distress syndrome Status: Acute Assessment and Plan: on full ventilator support since admission, has completed course of dexamethok, remdesivir, and dosed with tocilzumab isolation precautions follow inflammatory markers (4) Atrial fibrillation with rapid ventricular response: Code(s): I48.91 - Unspecified atrial fibrillation Status: Acute Assessment and Plan: precipitated by acute illness continue rate-control strategy follow telementery (5) Hyperkalemia: Code(s): E87.5 - Hyperkalemia Status: Acute Assessment and Plan: received more medical management dialysis should help correct this issues follow repeat levels (6) Hyponatremia: Code(s): E87.1 - Hypo-osmolality and hyponatremia Status: Acute Assessment and Plan: due to renal failure and hypotension free water in drips, IV medications...etc probably not helping dialysis should help correct Subjective Date/time seen: 11/26/20 15:37 Chart reviewed - assuming care from Dr. Pryor; renal function continues to deteriorate now associated with hyperkalemia; off pressors and remains hemodynamically stable but remains sedated/paralyzed on mechanical ventilation. Exam Narrative: General: WD/WN male sedated/paralyzed on ventilator Heart: normal S1 and S2; no rub Lungs: coarse breath sounds throughout Abdomen: soft, nontender, nondistended, positive bowel sounds Extremities: no cyanosis or clubbing; trace edema Skin: warm and dry Objective Data Vital Signs Vital Signs: Vital Signs Temp Pulse Resp BP Pulse Ox 11/26/20 14:45 93 28 H 11/26/20 14:34 93 28 H 11/26/20 14:00 36.8 C 89 28 H 111/65 90 11/26/20 13:58 89 28 H 91 11/26/20 12:00 36.6 C 88 28 H 123/67 90 11/26/20 11:31 84 92 11/26/20 10:00 36.4 C L 103 H 28 H 128/66 92 11/26/20 09:48 82 28 H 11/26/20 09:20 86 28 H 11/26/20 09:00 82 93 11/26/20 08:00 36.9 C 93 28 H 100/50 L 91 11/26/20 07:30 93 28 H 11/26/20 06:00 37.2 C 94 28 H 109/49 L 96 11/26/20 05:50 97 28 H 11/26/20 05:27 97 28 H 11/26/20 04:01 99 28 H 11/26/20 04:00 37.4 C 101 H 28 H 118/55 L 96 11/26/20 03:22 100 28 H 11/26/20 02:34 101 H 28 H 11/26/20 02:22 101 H 96 11/26/20 02:16 102 H 28 H 11/26/20 02:00 37.7 C H 102 H 28 H 113/57 L 96 11/26/20 01:45 102 H 11/26/20 00:45 103 H 28 H 11/26/20 00:00 37.4 C 100 28 H 116/55 L 95 11/25/20 23:54 100 95 11/25/20 22:45 94 11/25/20 22:35 94 11/25/20 22:00 36.9 C 93 28 H 92 11/25/20 21:26 94 11/25/20 21:10 84 92 11/25/20 21:06 86 28 H 11/25/20 20:00 36.6 C 84 28 H 125/59 L 94 11/25/20 19:37 83 28 H 11/25/20 19:35 83 28 H Intake/Output Intake/Output: Intake & Output 11/23/20 11/24/20 11/25/20 11/26/20 23:59 23:59 23:59 23:59 Intake Total 1756 4142 5637 2426 Output Total 3936 1659 158 200 Balance 378 6833 5106 2227
[2020-11-26 15:39] LABS: Hepatitis B Surface Antigen Negative (Negative)
[2020-11-26 15:52] LABS: HAV RESULT Negative (Negative)
[2020-11-26 15:57] LABS: Hepatitis B Surface Anti Res Negative; Hepatitis C Virus Antibody Negative (Negative)
[2020-11-26 16:02] LABS: Hepatitis B Core IgM Result Negative (Negative)
[2020-11-26] MEDS: SODIUM BICARBONATE 8.4% 50 MEQ/50 ML SYRINGE IV PUSH (19:56)
--- NOTE | 2020-11-26 21:31 | PC.NURSE ---
Post proning, Dr Brown made aware of low O2 sat. PEEP increased to [address] Brown. When patient maintains 90% or above now, decrease peep to 18, decreasing by 2 Q4hR only if patient maintains 90% or higher. Do Not go below 16 peep. Okay to start Levophed for MAP < 65.
[2020-11-26] MEDS: NOREPINEPHRINE 8 MG/D5W 250 ML 8 MG/250 ML BAG 9.38 MG IV CONT (21:47)
[2020-11-26 22:07] LABS: Glucose Point of Care 93 mg/dl (65-105)
--- NOTE | 2020-11-26 22:48 | PC.NURSE ---
updated on patient worsening condition regarding Oxygenation and Levophed support. Patient remains full code.
[2020-11-26 23:34] LABS: Glucose Point of Care 89 mg/dl (65-105)
[2020-11-27] VITALS (41 sets, daily range): BP systolic 79–171; BP diastolic 41–84; PULSE 72–135; RESP 28–30; TEMP 36.2–37; O2SAT 64–93
[2020-11-27] MEDS: MIDAZOLAM 100MG/NS 100ML(*CRX) 100 MG/100 ML BAG 10 MG IV CONT ×2 (00:22→10:35)
[2020-11-27] MEDS: ENOXAPARIN 100 MG, ENOXAPARIN 40 MG 140 MG SUB-Q (01:02)
[2020-11-27] MEDS: LEVALBUTEROL NEB 1.25 MG/3 ML 0.63 MG INHALATION ×2 (01:58→08:16)
[2020-11-27] MEDS: IPRATROPIUM BR 0.02% INH SOLN 0.5 MG/2.5 ML VIAL INHALATION ×2 (01:58→08:17)
[2020-11-27] MEDS: CISATRACURIUM BESYLATE 200 MG in DEXTROSE 5% 80 ML 24.91 ML IV CONT ×3 (02:42→10:30)
[2020-11-27 03:24] LABS: Hematocrit 30.2 % (42.0-52.0); Hemoglobin 9.7 g/dL (14.0-18.0); Mean Corpuscular HGB Conc 32.1 g/dl (32-36); Mean Corpuscular Hemoglobin 29.8 pg (26-34); Mean Corpuscular Volume 92.6 fl (80-100); Mean Platelet Volume 11.1 fl (7.4-10.4); Platelet Count Result 229 k/mm3 (150-375); Red Blood Count 3.26 M/mm3 (4.6-6.20); Red Cell Distribution Width 14.6 % (11.5-14.5); White Blood Count 28.4 K/mm3 (4.5-10.0)
[2020-11-27 03:45] LABS: Alanine Aminotransferase 64 U/L (4-50); Albumin Level 2.9 g/dL (3.5-5.1); Alkaline Phosphatase 163 U/L (38-126); Anion Gap 13 mmol/L (8-16); Aspartate Amino Transferase 225 U/L (17-59); Bilirubin,Total 5.4 mg/dL (0.2-1.3); Calcium 7.2 mg/dL (8.4-10.2); Carbon Dioxide 29 mmol/L (22-30); Chloride 86 mmol/L (98-107); Glucose 103 mg/dL (65-110); Magnesium 2.9 mg/dL (1.6-2.3); Phosphorus 11.4 mg/dL (2.5-4.5); Potassium 6.9 mmol/L (3.4-5.0); Sodium 128 mmol/L (137-145)
[2020-11-27 03:50] LABS: Blood Urea Nitrogen 139 mg/dL (9-20)
[2020-11-27 04:02] LABS: Estimated CRCL calculation 5 ml/min
[2020-11-27 04:03] LABS: Estimated Glomerular Filt Rate > 60
[2020-11-27 04:34] LABS: Alveolar/Arterial O2 Gradient 571.8 mmHg; Base Excess ABG 2.2 mEq/l (+/-2.0); Carboxyhemoglobin 0.3 % THb (0-2.0); Fractional Inspired Oxygen 100 %; HCO3 ABG 30.9 mEq/l (22.0-26.0); Methemoglobin ABG 0.6 %THb (0-1.5); Oxygen Content ABG 13.7 %vol (16.0-22.0); Oxygen Saturation ABG 90.3 % (95.0-100.0); Oxyhemoglobin 90.1 % THb (90.0-100.0); PO2 ABG 69.1 mmHg (80.0-100.0); PO2 FiO2 Ratio Arterial Blood 0.69 %; Total Hemoglobin 10.8 g/dL (12.0-18.0)
[2020-11-27 04:37] LABS: Device VENTILATOR; Modified Allen's Test Pass; PCO2 ABG 72.1 mmHg (35.0-45.0); Site Drawn RIGHT RADIAL
[2020-11-27 04:38] LABS: Arterial Blood Gas PEEP 16 cmH2O; Arterial Blood Gas Tidal Volume 500 ml; Arterial Blood Gas Vent Mode CMV; Arterial Blood Gas Ventilator rate 28 /MIN
[2020-11-27] MEDS: INSULIN HUMAN REGULAR (*BKC) 100 UNITS/ML 10 UNITS IV PUSH (05:56)
[2020-11-27] MEDS: METOCLOPRAMIDE HCL 10 MG/10 ML SOLN UDC PO ×2 (05:57→10:50)
[2020-11-27] MEDS: CENTRAL LINE FLUSH 10 ML IV PUSH ×2 (05:57)
[2020-11-27] MEDS: DEXTROSE 50% 25 GM/50 ML SYRINGE IV PUSH (05:57)
[2020-11-27] MEDS: SODIUM POLYSTYRENE SULFONONATE 15 GM/60 ML BTL 30 GM PO (05:57)
[2020-11-27] MEDS: SODIUM BICARBONATE 8.4% 50 MEQ/50 ML SYRINGE 100 MEQ IV PUSH ×2 (05:57→08:00)
[2020-11-27] MEDS: CALCIUM GLUC 2,000 MG/NS 100ML 2,000 MG/100 ML BAG 100 MG IVPB (06:10)
[2020-11-27] MEDS: FENTANYL 2,500MCG/NS250ML(*CRX 2,500 MCG/250 ML BAG 20 MCG IV CONT (06:14)
--- NOTE | 2020-11-27 08:05 | PC.NURSE ---
Spouse updated on patient condition.
[2020-11-27] MEDS: BUDESONIDE RESPULE NEB 0.5 MG/2 ML AMP INHALATION (08:17)
--- NOTE | 2020-11-27 09:00 | PC.NURSE ---
Spouse and child at room door. Family updated on plan of care by [employer].
--- NOTE | 2020-11-27 10:00 | PC.NURSE ---
Colette, Director of ICU/IMU, in conference room with family to review visiting policy as well as plan of care moving forward post- dialysis. Family verbalized understanding.
--- NOTE | 2020-11-27 10:14 | PM.PNNEP ---
Progress Note: A&P Assessment and Plan (1) Acute renal failure: Code(s): N17.9 - Acute kidney failure, unspecified Status: Acute Assessment and Plan: due to hemodynamic instability/hypotension and COVID-19 infection leading to ATN urine output dropping associated with rising BUN and hyperkalemia unable to receive HD yesterday due to HD catheter dysfunction new HD catheter placed -- HD today continue supportive therapy (2) Shock: Code(s): R57.9 - Shock, unspecified Status: Acute Assessment and Plan: doing a bit better at this time weaned off vasopressors on broad spectrum antibiotics follow culture data monitor trend of hemodynamics (3) Acute respiratory distress syndrome (ARDS) due to 2019 novel coronavirus: Code(s): U07.1 - COVID-19; J80 - Acute respiratory distress syndrome Status: Acute Assessment and Plan: on full ventilator support since admission, has completed course of dexamethasone, remdesivir, and dosed with tocilzumab isolation precautions follow inflammatory markers (4) Atrial fibrillation with rapid ventricular response: Code(s): I48.91 - Unspecified atrial fibrillation Status: Acute Assessment and Plan: precipitated by acute illness continue rate-control strategy follow telementery (5) Hyperkalemia: Code(s): E87.5 - Hyperkalemia Status: Acute Assessment and Plan: received more medical management dialysis should help correct this issues follow repeat levels (6) Hyponatremia: Code(s): E87.1 - Hypo-osmolality and hyponatremia Status: Acute Assessment and Plan: due to renal failure and hypotension free water in drips, IV medications...etc probably not helping dialysis should help correct Will continue to follow. Subjective Date/time seen: 11/27/20 10:14 Tolerating dialysis treatment at the time of my visit (seen on HD at ~ 10:00am); was unable to get HD treatment last night due to HD catheter dysfunction; remains intubated/sedated currently. Exam Narrative: General: WD/WN male sedated/paralyzed on ventilator Heart: normal S1 and S2; no rub Lungs: coarse breath sounds throughout Abdomen: soft, nontender, nondistended, positive bowel sounds Extremities: no cyanosis or clubbing; trace edema Skin: warm and dry Objective Data Vital Signs Vital Signs: Vital Signs Temp Pulse Resp BP Pulse Ox 11/27/20 10:00 95 30 H 96/63 L 11/27/20 09:45 96 100/66 11/27/20 09:30 97 101/63 11/27/20 09:15 98 91/56 L 11/27/20 09:00 36.4 C 92 30 H 96/59 L 11/27/20 08:45 84 121/70 11/27/20 08:40 84 140/76 11/27/20 08:35 83 135/74 11/27/20 08:30 83 30 H 135/76 11/27/20 08:25 84 142/75 H 11/27/20 08:20 79 167/80 H 90 11/27/20 08:18 82 30 H 11/27/20 08:15 78 171/84 H 11/27/20 08:00 73 30 H 92/41 L 11/27/20 06:14 85 28 H 11/27/20 06:13 81 28 H 97/51 L 11/27/20 06:00 36.5 C 81 28 H 97/51 L 89 L 11/27/20 04:39 82 90 11/27/20 04:00 36.5 C 85 28 H 100/51 L 93 11/27/20 03:32 84 28 H 92 11/27/20 02:42 87 28 H 97/52 L 11/27/20 02:02 86 91 11/27/20 02:00 36.6 C 86 28 H 97/52 L 91 11/27/20 01:57 87 28 H 11/27/20 00:35 36.6 C 86 28 H 101/52 L 91 11/27/20 00:30 85 98/53 L 11/27/20 00:24 89 28 H 98/53 L 11/27/20 00:23 88 28 H 11/27/20 00:22 87 28 H 11/27/20 00:00 89 28 H 91 11/26/20 23:45 89 91 11/26/20 23:16 91 99/51 L 11/26/20 23:01 90 96/50 L 11/26/20 23:00 94 28 H 93/51 L 11/26/20 22:56 94 28 H 93/51 L 11/26/20 22:00 37.0 C 91 28 H 107/54 L 91 08/23/21 21:47 93 96/50 L 11/26/20 20:43 91 91 11/26/20 20:36 91 28 H 11/26/20 20:00 37.0 C 92 28 H 110/52 L 89 L 11/26/20 18:55 88 28 H 108/56 L 11/26/20 18:54 90 28 H 11/26/20 18:0
--- NOTE | 2020-11-27 10:14 | P.PNNP_ITS ---
Progress Note: A&P Assessment and Plan (1) Acute renal failure: Code(s): N17.9 - Acute kidney failure, unspecified Status: Acute Assessment and Plan: * due to hemodynamic instability/hypotension and COVID-19 infection leading to ATN * urine output dropping associated with rising BUN and hyperkalemia * unable to receive HD yesterday due to HD catheter dysfunction * new HD catheter placed -- HD today * continue supportive therapy (2) Shock: Code(s): R57.9 - Shock, unspecified Status: Acute Assessment and Plan: * doing a bit better at this time * weaned off vasopressors * on broad spectrum antibiotics * follow culture data * monitor trend of hemodynamics (3) Acute respiratory distress syndrome (ARDS) due to 2019 novel coronavirus: Code(s): U07.1 - COVID-19; J80 - Acute respiratory distress syndrome Status: Acute Assessment and Plan: * on full ventilator support * since admission, has completed course of dexamethasone, remdesivir, and dosed with tocilzumab * isolation precautions * follow inflammatory markers (4) Atrial fibrillation with rapid ventricular response: Code(s): I48.91 - Unspecified atrial fibrillation Status: Acute Assessment and Plan: * precipitated by acute illness * continue rate-control strategy * follow telementery (5) Hyperkalemia: Code(s): E87.5 - Hyperkalemia Status: Acute Assessment and Plan: * received more medical management * dialysis should help correct this issues * follow repeat levels (6) Hyponatremia: Code(s): E87.1 - Hypo-osmolality and hyponatremia Status: Acute Assessment and Plan: * due to renal failure and hypotension * free water in drips, IV medications...etc probably not helping * dialysis should help correct Will continue to follow. Subjective Date/time seen: 11/27/20 10:14 Tolerating dialysis treatment at the time of my visit (seen on HD at ~ 10:00am); was unable to get HD treatment last night due to HD catheter dysfunction; remains intubated/sedated currently. Exam Narrative: General: WD/WN male sedated/paralyzed on ventilator Heart: normal S1 and S2; no rub Lungs: coarse breath sounds throughout Abdomen: soft, nontender, nondistended, positive bowel sounds Extremities: no cyanosis or clubbing; trace edema Skin: warm and dry Objective Data Vital Signs Vital Signs: Vital Signs Temp Pulse Resp BP Pulse Ox 11/27/20 10:00 95 30 H 96/63 L 11/27/20 09:45 96 100/66 11/27/20 09:30 97 101/63 11/27/20 09:15 98 91/56 L 11/27/20 09:00 36.4 C 92 30 H 96/59 L 11/27/20 08:45 84 121/70 11/27/20 08:40 84 140/76 11/27/20 08:35 83 135/74 11/27/20 08:30 83 30 H 135/76 11/27/20 08:25 84 142/75 H 11/27/20 08:20 79 167/80 H 90 11/27/20 08:18 82 30 H 11/27/20 08:15 78 171/84 H 11/27/20 08:00 73 30 H 92/41 L 11/27/20 06:14 85 28 H 11/27/20 06:13 81 28 H 97/51 L 11/27/20 06:00 36.5 C 81 28 H 97/51 L 89 L 11/27/20 04:39 82 90 11/27/20 04:00 36.5 C 85 28 H 100/51 L 93 11/27/20 03:32 84 28 H 92 11/27/20 02:42 87 28 H 97/52 L 11/27/20 02:02 86 91 11/27/20 02:
[2020-11-27] MEDS: NOREPINEPHRINE 8 MG/D5W 250 ML 8 MG/250 ML BAG 18.75 MG IV CONT (10:30)
[2020-11-27] MEDS: polyethylene glycoL 3350 17 GM POWD.PACK PO (10:49)
[2020-11-27] MEDS: ASPIRIN 325 MG TABLET FEED TUBE (10:50)
[2020-11-27] MEDS: MINERAL OIL/WHITE PETROLATUM OINTMENT 1 APPLIC EACH EYE (10:50)
[2020-11-27] MEDS: PANTOPRAZOLE SODIUM IV 40 MG VIAL IV PUSH (10:50)
[2020-11-27] MEDS: EPOETIN ALFA-EPBX 10,000 UNITS/ML VIAL 10000 UNITS IV PUSH (11:00)
--- NOTE | 2020-11-27 11:35 | WPDINTPN ---
Progress Note: A&P Assessment and Plan (1) Shock: Code(s): R57.9 - Shock, unspecified Status: Acute Assessment and Plan: Likely septic given elevated lactic acid, leukocytosis, febrile -pending blood, urine, sputum cultures -started on cefepime and vancomycin -patient was given 1 L of IV fluid bolus initially but now not on any IV fluids due to bilateral diffuse infiltrates due to COVID pneumonia and overall volume overload -started and will continue Levophed, (2) Acute respiratory distress syndrome (ARDS) due to 2019 novel coronavirus: Code(s): U07.1 - COVID-19; J80 - Acute respiratory distress syndrome Status: Acute Assessment and Plan: Acute respiratory failure likely related to COVID pneumonia -11/14/2020 patient was on high-flow therapy and non-rebreather, desaturated, was placed on BiPAP 17/11 with O2 sats of 98-100% on 80% FiO2 -11/15/2020 earlier was patient had emesis on BiPAP, was tried on high-flow therapy with desaturations, patient was intubated on 11/15/2020 - chest x-ray reviewed and shows persistent diffuse lung disease -patient has overall deteriorated with increased oxygen requirement and several episodes where he required bag ventilation to get his saturation into 80s - PEEP of 20 and FIO2 of 100%, = ABGs reviewed and permissive hypercapnia - patient has completed a 5 day course of azithromycin and ceftriaxone -continue bronchodilators and Pulmicort -currently chemically paralyzed with NMB infusion -daily 18 hours of prone ventilation as tolerated (3) Pneumonia due to 2019 novel coronavirus: Code(s): U07.1 - COVID-19; J12.82 - Pneumonia due to coronavirus disease 2019 Status: Acute Assessment and Plan: Patient has been tested positive for COVID-19 on 11/13/2020. Patient has not received his vaccine -11/13/2020 started on dexamethasone - course complete -11/13/2020 started on remdesivir - course complete -11/13/2020 received tocilizumab at the outside hospital -continue with droplet, airborne and contact isolation/precautions -inflammatory markers are elevated, will continue to trend (4) Asthma: Code(s): J45.909 - Unspecified asthma, uncomplicated Status: Acute Assessment and Plan: Continue bronchodilators (5) Atrial fibrillation with rapid ventricular response: Code(s): I48.91 - Unspecified atrial fibrillation Status: Acute Assessment and Plan: Patient has been going in an out of AFib every other day, requiring Cardizem infusion intermittently Patient was on Lovenox at therapeutic anticoagulation dose. But due to worsening renal function will switch to heparin infusion continue aspirin Currently in NSR (6) Hypertriglyceridemia: Code(s): E78.1 - Pure hyperglyceridemia Status: Acute Assessment and Plan: his triglyceride level was 2100 on 11/17 but this was likely in after from sample collection from propofol line Triglycerides still elevated Off propofol and on Versed and fentanyl. Patient also on Nimbex. May need to and Precedex continue to monitor (7) DVT prophylaxis: Code(s): Z29.9 - Encounter for prophylactic measures, unspecified Status: Acute Assessment and Plan: He is on Lovenox but with worsening renal function I will discontinue and transition to heparin infusion PPI for stress ulcer prophylaxis (8) Acute renal failure: Code(s): N17.9 - Acute kidney failure, unspecified Status: Acute Assessment and Plan: Patient has developed acute kidney injury with increasing creatinine Patient was seen by Nephrology and suspect ATN Patient also has mild rhabdomyolysis with CK level in 900s Renal ultrasound was negative After discussion with patient's and nephrology decision was made yesterday to start patient on hemodialysis. I placed a right IJ temporary hemodialysis catheter. Later in the evening, I was notified by nurse that hemodialysis was unsuccessful
--- NOTE | 2020-11-27 11:49 | P.PCNBED_ITS ---
Procedures Central Line Placement Right IJ: Central Line Date: 11/27/20 Central Line Time: 08:00 Discussed w/ the patient/family/POA,the placement of a central venous catheter, including its clinical necessity/indication & associated potential risks, benifits and alternatives.: Yes The patient/family/POA understand(s) and acknowledge(s) the need to proceed with central venous catheter insertion as an important element of the patient's clinical management.: Yes Consent: Patient's had already consented for hemodialysis catheter yesterday which was placed yesterday. Arterial port of hemodialysis catheter was not working and hemodialysis catheter had to be emergently replaced as patient was hyperkalemic he did hemodialysis Time Out Performed: Yes Patient Position: supine Patient placed on monitor/pulse ox: Yes Provider Prep: mask, sterile gown, sterile gloves, Max. sterile barrier precautions, cap and hand hygiene with conventional soap/water or alcohol based hand rub Central line prep: 2% Chlorhexidine scrub Central line lumen inserted: double and triple Mongolian: 12 Length (cm): 20 Depth of Insertion (cm): 18 Post Procedure: sutured in place, good blood return, all ports aspirated, flushed, capped and transparent dressing Post procedure x-ray: tip of catheter in good position and no pneumothorax seen Patient tolerated procedure: well Complications: none Additional comments: Patient is morbidly obese which thick large neck. As his dialysis catheter sutured on his neck on soft tissue, when his neck is extended, the tissue on the neck moves superior and posterior and the line comes out by at least 2 cm.
--- NOTE | 2020-11-27 12:50 | PCDIET ---
Nutrition Follow-Up Complete: Nutrition Diagnosis: Inadequate oral intake related to oral intubation as evidenced by NPO status. Nutrition Goal: Patient to meet estimated nutritional needs. Goal in progress. Patient with 280mL residuals and below on Nepro at 20mL/hr. Still no BM, despite Miralax and Kayexalate. Last recorded weight is 194.3 kg which is down from last review. Labs Reviewed: WBC (2.84), RBC (3.26), Hgb (9.7), Hct (30.2), BUN (139), Cr (>28), K (6.9), Na (128), Alb (2.9), Celeste Ca (8.08), PO4 (11.4), Mg (2.9) Meds Noted: Pulmicort, Nimbex, Novolog, Atrovent, Maxipime, Retacrit, Fentanyl, Xopenex, Reglan, Versed, Levophed, Protonix, Miralax, Vancomycin, Kayexalate, Calcium Chloride Additional Notes: Penis macerated. Skin tears to face. Will continue to monitor with same goal. Nutrition Monitoring and Evaluation: Follow up every Thursday/Thursday.
--- NOTE | 2020-11-27 14:18 | PDCODEBLUE ---
Code Blue Note Code Blue Note Time Arrived at Code Blue: 1310 Initial Rhythm on Arrival: Pulseless electrical activity Airway Management: Pt being bagged on arrival Chest Compressions: In process on arrival to bedside Result of Code Blue: Pt Cardiac Rhythm Post Code: Asystole Code Blue Summary: Responded to code blue at 1:10 p.m. on arrival patient was getting CPR and was being bagged with Ambu bag. He was in AFib with RVR along with no pulse. CPR was continued patient was given 8 dose of epinephrine, 2 doses of bicarb, 1 mg of atropine. In between we were able to obtain pulse which only lasted less than 1 minute. Resuscitation was continued for more than 25 minutes. Following that patient was in asystole with no pulse in any of the major arteries bilaterally which was checked by multiple staff members. No cardiac sounds. Patient was pronounced 1:35 p.m. I spoke to patient's and updated her with events in detail answered all her questions. Total critical care time 50 minutes including before and after the actual cord Due to a high probability of clinically significant, life threatening deterioration, the patient required my highest level of preparedness to intervene emergently and I personally spent this critical care time directly and personally managing the patient. This critical care time included obtaining a history; examining the patient; pulse oximetry; ordering and review of studies; arranging urgent treatment with development of a management plan; evaluation of patient's response to treatment; frequent reassessment; and discussions with other providers. It was exclusive of separately billable procedures and treating other patients and teaching time. Please see Assessment and Plan section and the rest of the note for further information on patient assessment and treatment
[2020-11-28 10:14] LABS: Haptoglobin 339 mg/dL (43-212)
[2020-12-01 00:51] LABS: Chloride Rand Ur 36 mmol/L (32-290); Chloride/Creatinine Rand Ur 57 (23-275); Creatinine Random Urine 63 mg/dL (20-320)
--- NOTE | 2020-12-06 14:09 | PM.DDS ---
Discharge Summary Date and Time Date of : 11/27/20 Time of : 13:35 Provider Pronounced By: DR. SHANNON AND KARLA HSU MSN, RN Probable Cause of Probable Cause of : COVID-19 pneumonia and acute respiratory failure Summary Hospital Course: 55-year-old male with history of asthma and obesity who was not vaccinated for COVID-19 was admitted on 11/14/2020 from outside hospital with respiratory failure secondary to COVID-19 pneumonia. Patient was initially on high-flow nasal cannula and non-rebreather and was later switched to BiPAP. Overnight patient had to be intubated for worsening respiratory failure. patient was treated with empiric antibiotics, remdesivir, dexamethasone and also received tocilizumab. Patient required high PEEP and FiO2 and was sedated and chemically paralyzed with neuromuscular blockers. Patient was daily proned due to severe respiratory failure. During the hospital course patient also went into AFib with RVR and was treated with Cardizem infusion along with Lovenox. Patient converted to normal sinus rhythm and later in the course had intermittent episodes of AFib with RVR. Patient's at the family members were continuously kept appraised with patient's condition. Patient continued to deteriorate requiring increased FiO2 and PEEP despite all the measures. Patient later developed acute renal failure and hemodialysis catheter was placed and patient was dialyzed. By this time patient had developed multiorgan failure including shock respiratory failure and acute renal failure requiring hemodialysis. On 11/27 patient had a PEA arrest around 1:10 p.m. CPR was continued patient was given 8 dose of epinephrine, 2 doses of bicarb, 1 mg of atropine. In between we were able to obtain pulse which only lasted less than 1 minute. Resuscitation was continued for more than 25 minutes. Following that patient was in asystole with no pulse in any of the major arteries bilaterally which was checked by multiple staff members. No cardiac sounds. Patient was pronounced 1:35 p.m. I spoke to patient's and updated her with events in detail answered all her questions. Additional Data Confirmation of as documented by pronouncing clinician: Pupillary Reflex, Palpable Pulses, Response to Stimuli, Heart Tones and Breath Sounds Name of Provider Notified: DR. SHANNON Time Provider Notified: 13:10 Provider Requests Autopsy: No Family Requests Autopsy: No Glass Bender Notified: Yes Date [facility] Notified of : 11/27/20 Time [facility] Notified of : 14:16
== END 2020-11-27 13:35 | disposition expired | DRG 207 ==
PROVIDERS: Internal Medicine; Internal Medicine Nephrology; Admitting Provider Internal Medicine; PCP Family Medicine; Visit Provider Internal Medicine
DX: U07.1 COVID-19 (principal); J12.82 Pneumonia due to coronavirus disease 2019; J96.00 Acute respiratory failure, unspecified whether with hypoxia or hypercapnia; N17.0 Acute kidney failure with tubular necrosis; R57.9 Shock, unspecified; Z68.43 Body mass index [BMI] 50.0-59.9, adult; J45.909 Unspecified asthma, uncomplicated; I48.91 Unspecified atrial fibrillation; I10 Essential (primary) hypertension; E78.1 Pure hyperglyceridemia; E87.5 Hyperkalemia; E66.01 Morbid (severe) obesity due to excess calories
CPT/HCPCS: 31500; 36415; 36569; 36600; 71045; 74018; 76775; 80048; 80053; 80074; 81001; 82375; 82436; 82533; 82550; 82570; 82728; 82805; 82948; 83010; 83050; 83605; 83615; 83690; 83735; 83880; 84100; 84133; 84156; 84300; 84478; 85025; 85027; 85380; 85610; 85999; 86140; 86706; 87040; 87070; 87077; 87086; 87186; 87205; 92950; 93306; 93970; 94002; 94003; 94640; C1752; A9270; C1751; C9113; G0257; J0171; J0282; J0330; J0360; J0456; J0461; J0610; J0692; J0696; J1100; J1644; J1650; J1815; J1940; J2250; J2405; J2550; J2704; J3010; J3370; J7030; J7040; Q5106